=== PATIENT | female | born 1965 | race Caucasian/White ===

== ENCOUNTER 2017-08-08 09:25 | Outpatient (RCR) | payer MEDICARE, BC ==
[2017-05-16] MEDS: NS(*) 0.9% 100 ML BAG 100 ML IVPB PRN (09:00)
[2017-05-16 10:00] LABS: PLATELET COUNT, AUTOMATED 133 K/uL (150-450)
--- NOTE | 2017-05-16 10:57 | ONC Progress Note - NP.Halsey ---
Patient History Date of Service May 16, 2017 Reason For Visit/HPI Patient is seen in the clinic today for follow-up of her multiple myeloma with known bony lesions. Patient is receiving Velcade and Zometa today. Patient is currently on oral venetoclax daily. She reports that she only has enough for tomorrow's dose and then will be out. [facility] has called the clinic to say that this medication is not prior authorized and may take up to 30 days for approval through her insurance. Patient is encouraged to call [facility] who initially started her on this medication to see if they can assist and expedite the process. Overall patient is feeling relatively well and appears to be responding to treatment. She does have mild fatigue and some hair loss. Thyroid labs were drawn today for evaluation. Patient has no new bone areas that are causing pain. She is currently trying to decrease her pain medication slowly weaning off and then eventually we'll just use Tylenol as needed. She denies any fever or chills. Problem List (1) Chronic back pain (2) Chemotherapy-induced neuropathy (3) Multiple myeloma Oncology History The patient is a 51-year-old female who was diagnosed with kappa light chain multiple myeloma in December 2014. 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 She presented with anemia, hypercalcemia, numerous lytic lesions with compression of lumbar 2 and renal failure. Her animal protein at diagnosis was 0.3 gm/dL. She is status one cycle of VTD, then switched to VRD and completed a total of five cycles of induction. She received mobilization with G-CSF and collected a total of 14.9 x 10 (6) CD34/kg and her single agent melphalan autotransplant on March 16, 2013. She achieved VGPR with residual bone marrow and monoclonal protein involvement. She was started on VRD maintenance and completed six cycles and achieved a complete remission by serum and urine markers. Bone marrow biopsy January 2014 was less than 1% monoclonal plasma cells. The patient was switched to Revlimid and continued on that treatment until March 2015, when she showed signs of progression. She had light chain elevation in December 2014, and her Revlimid dose was increased to 10 mg , having been decreased due to cytopenias before. In March 2015, she had further progression of her kappa light chain of 24, K/L ratio of 26. No monoclonal protein in her serum or urine. She underwent bone marrow biopsy which showed 5% monoclonal plasma cells. With confirmation of disease progression, she was initiated on carfilzomib, pomalidomide, and dexamethasone. After two cycles of treatment, she showed small decrease in the light chain and increased again and overall remained stable with nearly seven cycles of the treatment. She was seen at my clinic in [place] for a second opinion with recommendation to continue on the current therapy until she progressed. Her sister has been confirmed as a match for allo transplant, though she does not want to pursue this any further unless it becomes more of a necessity. With her disease progression, the patient started on CPD early April 2015 and after two cycles in June 2015, her re-staging was concerning as her light chains are elevated again. Her bone marrow at that time revealed 1% monoclonal plasma cells, MRD with 1984 cells/million. After three more cycles of CPD, her serum light chain has essentially been stable. In September 2015 she had complete re-staging which shows her PET scan with progressive disease as compared to December 2014. Her bone marrow was stable with 2% monoclonal plasma cells, so interestingly, her MRD is down to 451 cells per million. Her light chains remained stable until cycle 7 and the kappa light chains increased again. The patient was offered chemotherapy with DPACE, followed by auto transplant; however, she elected to start daratumumab. The patient finished the eight weekly doses of daratumumab and four of the bi-weekly doses x 15 cycles. . Patient moved from [place], [place], Patient has been evaluated at [facility] with recommendation of treatment Velcade weekly, dexamethasone 20 mg weekly, and venetoclax orally starting treatment the beginning of February. She has had a good response with minimal toxicity. Psychosocial History Social History he patient is with one daughter. She is on disability because of multiple myeloma. She never smoked. She occasionally drank. Denies any abuse of illicit drugs. Smoking History: No Smoking Status: Never Smoker Exposure to Second Hand Smoke?: No Medications and Allergies Active Scripts Hydrocodone Bit/Acetaminophen (NORCO 5-325 TABLET) 1 Each Tablet, 1 EACH PO Q4H Y for PAIN, #60 TAB 0 Refills Prov:LATASHA REYNOSO-BC, ONC 04/18/17 Duloxetine HCl (Duloxetine HCl) 60 Mg Capsule.dr, 1 TAB PO DAILY for 30 Days, # 30 TAB 4 Refills Prov:LATASHA REYNOSOP-BC, ONC 03/09/17 Omeprazole (OMEPRAZOLE) 20 Mg Capsule.dr, 1 CAP PO QDAY, #30 CAP 9 Refills Prov:LATASHA REYNOSO BESSEMER BOTTOM MAKER-BC, ONC 03/06/17 Estradiol (ESTRADIOL 0.05 MG) 1 Each Patch.tdwk, 1 EACH TD Q7D, #12 PATCH.WK 4 Refills apply one patch to skin once weekly Prov:LATASHA REYNOSO BESSEMER BOTTOM MAKER-BC, ONC 11/09/16 Reported Medications Venetoclax (Venclexta) 100 Mg Tablet, 1200 MG PO DAILY for 14 Days 03/10/17 Venetoclax (Venclexta) 100 Mg Tablet, 800 MG PO DAILY for 7 Days 03/10/17 Venetoclax (Venclexta) 100 Mg Tablet, 400 MG PO for 7 Days 03/10/17 Zoledronic Acid (ZOMETA) 4 Mg/5 Ml Vial, 4 MG IV QMONTH, VIAL 02/01/17 Bortezomib (VELCADE) 3.5 Mg Injs, 3.5 MG SQ QWEEK 02/01/17 Levothyroxine Sodium (SYNTHROID) 100 Mcg Tablet, 150 MCG PO QDAY 07/25/16 Magnesium Hydroxide (MILK OF MAGNESIA) 400 Mg/5 Ml Oral.susp, 400 MG PO, BOTTLE 03/31/16 Lactobacillus Combination No.4 (PROBIOTIC) 1 Each Capsule, 1 EACH PO, CAPSULE 03/31/16 Multivitamin (MULTI VITAMIN DAILY) 1 Each Tablet, 1 EACH PO 03/31/16 Cholecalciferol (Vitamin D3) (VITAMIN D) 5,000 Unit Tablet, 5000 UNIT PO 03/31/16 Ondansetron (ONDANSETRON ODT) 8 Mg Tab.rapdis, 8 MG PO PRN Y for NAUSEA, TAB 03/31/16 Diclofenac Sodium 1% Gel (VOLTAREN 1% GEL) 100 Gm Gel..gram., Y for PAIN 03/31/16 Trazodone Hcl (TRAZODONE HCL) 50 Mg Tablet, 50 MG PO QHS 03/31/16 Acyclovir (ACYCLOVIR) 400 Mg Tablet, 400 MG PO BID, TAB 03/31/16 Allergies: Coded Allergies: No Known Drug Allergies (Unverified , 02/01/17) Review of System/Physical Exam Review of Systems All Systems Reviewed/Normal: Yes, Except as Noted Constitutional: Positive for Other (noted for some mild hair loss) Hematologic: Positive for Fatigue Musculoskeletal: Positive for Bone Pain (very slight bone pain) Physical Exam Vital Signs Temperature: 96.9 Pulse: 98 BP Systolic: 126 BP Diastolic: 93 Respiratory Rate: 16 O2 SAT: 95 O2 Delivery: Height (inches) 68.00 Weight lb: 179 Weight oz: Weight Kg (Remington): [id number] Pain: 1 ECOG Score: 1 General: Stable, Well Developed, Well Nourished, Not In Acute Distress HEENT: No Trauma, No Conjunctivitis, No Icterus, No Mucositis Neck: Supple Lungs: Clear to Auscultation Heart: Regular Rate, Regular Rhythm, No Gallops, No Murmurs Abdomen: Soft and Nontender, No Hepatosplenomegaly, No Masses Extremities: No Cyanosis, No Clubbing, No Edema Lymphadenopathy: No Cervical Psychiatric: Mood appears normal, Affect appears normal Skin: No Skin Rashes, No Bruising, No Purpura Diagnostic Studies Diagnostic Studies Laboratory Laboratory Tests 05/16/17 09:20 Laboratory Tests 05/16/17 09:20: White Blood Count 2.5, Red Blood Count 4.43, Hemoglobin 13.2, Hematocrit 39.1, Mean Corpuscular Volume 88.3, Mean Corpuscular Hemoglobin 29.8, Mean Corpuscular Hemoglobin Concent 33.8, Red Cell Distribution Width 14.7, Platelet Count 133, Mean Platelet Volume , Neutrophils (%) (Auto) 61.7, Lymphocytes (%) ( Auto) 19.2, Monocytes (%) (Auto) 18.2, Eosinophils (%) (Auto) 0.1, Basophils (% ) (Auto) 0.8, Nucleated RBC Relative Count (auto) 0.1, Neutrophils # (Auto) 1.6 , Lymphocytes # (Auto) 0.5, Monocytes # (Auto) 0.5, Eosinophils # (Auto) 0.0, Basophils # (Auto) 0.0, Nucleated RBC Absolute Count (auto) 0.00, Peripheral Blood Smear Yes, Sodium Level 138, Potassium Level 4.2, Chloride Level 104, Carbon Dioxide Level 24, Blood Urea Nitrogen 17, Creatinine 0.80, Glomerular Filtration Rate Calc > 60.0, Random Glucose 89, Uric Acid 4.2, Calcium Level 9.4 , Total Bilirubin 0.5, Aspartate Amino Transf (AST/SGOT) 16, Alanine Aminotransferase (ALT/SGPT) 30, Alkaline Phosphatase 48, Total Protein 6.5, Albumin 4.2, Thyroid Stimulating Hormone (TSH) 1.37, Free Thyroxine 1.14 Assessment and Plan Assessment & Plan 1. Multiple myeloma diagnosed in 2014. Patient received one cycle of VDV, switched to VRD for a total of five cycles prior to her autologous stem cell transplant done May 16, 2015. Patient achieved partial remission after her bone marrow transplant, and she received maintenance VRD therapy for six cycles with achievement of complete remission January 2016. She progressed after that and received CBD chemotherapy. After progression she was offered chemotherapy with DPACE followed by autotransplant, but the patient refused such option and decided to go for daratumumab. She received 15 cycles of daratumumab. She reevaluated at [facility] and was found to have progressive disease by PET scan July 02, 2016. Patient refused bone marrow transplant at that time despite the fact her sister is a full match. She was offered treatment with Keytruda and Revlimid under authorization to get the medication from the telecom coordinator as her insurance denied Keytruda treatment. Patient saw another oncologist at [facility] and she feels more comfortable with him. He offered her treatment with Venetoclax and Velcade weekly and dexamethasone weekly. Patient started such treatment in February 2017. She is tolerating the treatment very well. Her general condition is much better. Her PET scan from January 2017 was stable, while her kappa free light chain is responding to such treatment. It dropped from 172 to 51.9 and most recently. 14.5. She will continue to follow with her oncologist in the [facility] and alternate visits with our clinic. She will have monthly CBC, chem panel, LDH, uric acid and myeloma profile. She continues on Zometa monthly 2. Leukopenia and neutropenia. Current ANC is 1600 Will continue to monitor. 3. 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 Continue Zometa. 4. Fatigue, is getting better. 5. Hypothyroidism on supplement. TSH is 1.37 PLAN 1. Venetoclax, dexamethasone and Velcade cycle number 4 2. CBC, chem panel, uric acid to be checked weekly. 3. Patient to return in 2 months with CBC, chem panel, LDH, uric acid and myeloma profile. 4. Zometa 4 mg IV infusion every four weeks. 5. Patient is to contact us for any new concerns or complaints. I personally spent a total of 20 minutes. Of that 15 minutes was counseling/ coordination of patient's care. See my note above for details. LATASHA REYNOSO BESSEMER BOTTOM MAKER-BC, ONC May 16, 2017 10:57
[2017-05-16] MEDS: LIDOCAINE/SOD BICARB 8.4% SYR ID PRN ×2 (15:13→15:14)
[2017-05-16] MEDS: HEPARIN FLSH (PORT) 500 UN/5ML IVP PRN ×2 (15:13→15:14)
[2017-05-23 09:06] VITALS: BP 116/83
[2017-05-30 09:16] LABS: PLATELET COUNT, AUTOMATED 162 K/uL (150-450)
[2017-05-30 09:49] VITALS: BP 135/96
[2017-06-06 09:13] LABS: PLATELET COUNT, AUTOMATED 140 K/uL (150-450)
[2017-06-06 10:15] VITALS: BP 124/65
[2017-06-13 09:24] VITALS: BP 117/99
[2017-06-13] MEDS: HEPARIN FLSH (PORT) 500 UN/5ML IVP PRN (10:20)
[2017-06-13] MEDS: LIDOCAINE/SOD BICARB 8.4% SYR ID PRN (10:20)
[2017-06-13] MEDS: NS(*) 0.9% 100 ML BAG 100 ML IVPB PRN (10:20)
[2017-06-20 09:10] VITALS: BP 123/92
--- NOTE | 2017-06-20 10:55 | ONC Progress Note - NP.Halsey ---
Patient History Date of Service Jun 20, 2017 Reason For Visit/HPI Patient is seen in the clinic today for follow-up of her multiple myeloma with known bony lesions. Patient is receiving Velcade and Zometa today. Patient is currently on oral venetoclax daily. She recently had this refilled, she does report that she was 2 days late and restarting it. Overall patient is feeling well and has no new concerns. She has stable pain and has tried to decrease her pain medication but felt that her pain then increased. She continues to try to walk and exercise for strengthening. She is planning on traveling to [place] over the holidays. Problem List (1) Multiple myeloma (2) Chronic back pain (3) Chemotherapy-induced neuropathy Oncology History The patient is a 51-year-old female who was diagnosed with kappa light chain multiple myeloma in December 2014. 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 She presented with anemia, hypercalcemia, numerous lytic lesions with compression of lumbar 2 and renal failure. Her animal protein at diagnosis was 0.3 gm/dL. She is status one cycle of VTD, then switched to VRD and completed a total of five cycles of induction. She received mobilization with G-CSF and collected a total of 14.9 x 10 (6) CD34/kg and her single agent melphalan autotransplant on March 16, 2013. She achieved VGPR with residual bone marrow and monoclonal protein involvement. She was started on VRD maintenance and completed six cycles and achieved a complete remission by serum and urine markers. Bone marrow biopsy January 2014 was less than 1% monoclonal plasma cells. The patient was switched to Revlimid and continued on that treatment until March 2015, when she showed signs of progression. She had light chain elevation in December 2014, and her Revlimid dose was increased to 10 mg , having been decreased due to cytopenias before. In March 2015, she had further progression of her kappa light chain of 24, K/L ratio of 26. No monoclonal protein in her serum or urine. She underwent bone marrow biopsy which showed 5% monoclonal plasma cells. With confirmation of disease progression, she was initiated on carfilzomib, pomalidomide, and dexamethasone. After two cycles of treatment, she showed small decrease in the light chain and increased again and overall remained stable with nearly seven cycles of the treatment. She was seen at my clinic in [place] for a second opinion with recommendation to continue on the current therapy until she progressed. Her sister has been confirmed as a match for allo transplant, though she does not want to pursue this any further unless it becomes more of a necessity. With her disease progression, the patient started on CPD early April 2015 and after two cycles in June 2015, her re-staging was concerning as her light chains are elevated again. Her bone marrow at that time revealed 1% monoclonal plasma cells, MRD with 1984 cells/million. After three more cycles of CPD, her serum light chain has essentially been stable. In September 2015 she had complete re-staging which shows her PET scan with progressive disease as compared to December 2014. Her bone marrow was stable with 2% monoclonal plasma cells, so interestingly, her MRD is down to 451 cells per million. Her light chains remained stable until cycle 7 and the kappa light chains increased again. The patient was offered chemotherapy with DPACE, followed by auto transplant; however, she elected to start daratumumab. The patient finished the eight weekly doses of daratumumab and four of the bi-weekly doses x 15 cycles. . Patient moved from [place], [place], Patient has been evaluated at [facility] with recommendation of treatment Velcade weekly, dexamethasone 20 mg weekly, and venetoclax orally starting treatment the beginning of February. She has had a good response with minimal toxicity. Psychosocial History Social History She patient is with one daughter. She is on disability because of multiple myeloma. She never smoked. She occasionally drank. Denies any abuse of illicit drugs. Smoking History: No Smoking Status: Never Smoker Exposure to Second Hand Smoke?: No Medications and Allergies Active Scripts Levothyroxine Sodium (SYNTHROID) 150 Mcg Tablet, 150 MCG PO QDAY for 90 Days, # 90 TAB 3 Refills Prov:LATASHA REYNOSO RECTIFIER OPERATOR-BC, ONC 06/20/17 Omeprazole (OMEPRAZOLE) 20 Mg Tablet.dr, 20 MG PO QDAY for 90 Days, #90 TAB 3 Refills Prov:LATASHA REYNOSOP-BC, ONC 06/20/17 Dexamethasone 4 Mg Tab (DEXAMETHASONE 4 MG TAB) 4 Mg Tab, 16 MG PO weekly for 90 Days, #192 TAB 3 Refills Prov:LATASHA REYNOSO RECTIFIER OPERATOR-BC, ONC 06/20/17 Duloxetine HCl (Duloxetine HCl) 60 Mg Capsule.dr, 1 TAB PO DAILY for 90 Days, # 90 TAB 3 Refills Prov:LATASHA REYNOSO RECTIFIER OPERATOR-BC, ONC 06/20/17 Estradiol (ESTRADIOL 0.05 MG) 1 Each Patch.tdwk, 1 EACH TD Q7D for 90 Days, #30 PATCH.WK 3 Refills apply one patch to skin twice weekly Prov:LATASHA REYNOSO RECTIFIER OPERATOR-BC, ONC 06/20/17 Acyclovir (ACYCLOVIR) 400 Mg Tablet, 400 MG PO BID for 90 Days, #180 TAB 3 Refills Prov:LATASHA REYNOSO RECTIFIER OPERATOR-BC, ONC 06/20/17 Hydrocodone Bit/Acetaminophen (NORCO 5-325 TABLET) 1 Each Tablet, 1 EACH PO Q4H Y for PAIN, #60 TAB 0 Refills Prov:LATASHA REYNOSO [facility]-, ONC 06/13/17 Reported Medications Venetoclax (Venclexta) 100 Mg Tablet, 1200 MG PO DAILY for 14 Days 03/10/17 Venetoclax (Venclexta) 100 Mg Tablet, 800 MG PO DAILY for 7 Days 03/10/17 Venetoclax (Venclexta) 100 Mg Tablet, 400 MG PO for 7 Days 03/10/17 Zoledronic Acid (ZOMETA) 4 Mg/5 Ml Vial, 4 MG IV QMONTH, VIAL 02/01/17 Bortezomib (VELCADE) 3.5 Mg Injs, 3.5 MG SQ QWEEK 02/01/17 Magnesium Hydroxide (MILK OF MAGNESIA) 400 Mg/5 Ml Oral.susp, 400 MG PO, BOTTLE 03/31/16 Lactobacillus Combination No.4 (PROBIOTIC) 1 Each Capsule, 1 EACH PO, CAPSULE 03/31/16 Multivitamin (MULTI VITAMIN DAILY) 1 Each Tablet, 1 EACH PO 03/31/16 Cholecalciferol (Vitamin D3) (VITAMIN D) 5,000 Unit Tablet, 5000 UNIT PO 03/31/16 Ondansetron (ONDANSETRON ODT) 8 Mg Tab.rapdis, 8 MG PO PRN Y for NAUSEA, TAB 03/31/16 Diclofenac Sodium 1% Gel (VOLTAREN 1% GEL) 100 Gm Gel..gram., Y for PAIN 03/31/16 Trazodone Hcl (TRAZODONE HCL) 50 Mg Tablet, 50 MG PO QHS 03/31/16 Discontinued Reported Medications Levothyroxine Sodium (SYNTHROID) 100 Mcg Tablet, 150 MCG PO QDAY 07/25/16 Discontinued Scripts Omeprazole (OMEPRAZOLE) 20 Mg Capsule., 1 CAP PO QDAY, #30 CAP 9 Refills Prov:LATASHA REYNOSO RECTIFIER OPERATOR-BC, ONC 03/06/17 Allergies: Coded Allergies: No Known Drug Allergies (Unverified , 02/01/17) Review of System/Physical Exam Review of Systems All Systems Reviewed/Normal: Yes, Except as Noted Hematologic: Positive for Fatigue Physical Exam Vital Signs Temperature: 97.8 Pulse: 110 BP Systolic: 123 BP Diastolic: 92 Respiratory Rate: 16 O2 SAT: 93 O2 Delivery: Height (inches) 68.00 Weight lb: 0 Weight oz: Weight Kg ([place]): [id number] Pain: 2 ECOG Score: 0 General: Stable, Well Developed, Well Nourished, Not In Acute Distress HEENT: No Trauma, No Conjunctivitis, No Icterus, No Mucositis Neck: Supple Lungs: Clear to Auscultation Heart: Regular Rate, Regular Rhythm, No Gallops Abdomen: Soft and Nontender, No Hepatosplenomegaly, No Masses, Other Extremities: No Cyanosis, No Clubbing, No Edema Lymphadenopathy: No Cervical Psychiatric: Mood appears normal, Affect appears normal Skin: No Skin Rashes, No Bruising, No Purpura Diagnostic Studies Diagnostic Studies Laboratory Laboratory Tests 06/20/17 09:15 Laboratory Tests 05/16/17 09:20: Peripheral Blood Smear Yes, Uric Acid 4.2, Thyroid Stimulating Hormone (TSH) 1.37, Free Thyroxine 1.14, Free Triiodothyronine 2.1 05/30/17 09:05: Protein Electrophoresis (T) 7.00, Albumin % (PEP) 4.96, Hvcti-6-Skarihbyp 0.23, Yepzf-6-Acgmjpmgm 0.88, Beta Globulins 0.74, Hudt-6-Aykxjhhflucfw 1.4, Gamma Globulins (%) 0.19, Immunoglobulin G 150, Immunoglobulin A 7, Immunoglobulin M < 5, LC & Serum PEP Interpretation See note, Serum Immunofixation Lc done, Free Dunbar Light Chains, Quant 16.20, Free Lambda Light Chains, Quant 0.39, Free Dunbar/Lambda Light Chain Ratio 41.54 06/06/17 09:00: Red Blood Count 4.53, Mean Corpuscular Volume 88.4, Mean Corpuscular Hemoglobin 30.6, Mean Corpuscular Hemoglobin Concent 34.7, Red Cell Distribution Width 15.5 , Mean Platelet Volume 8.1, Monocytes (%) (Auto) 16.5, Eosinophils (%) (Auto) 0.1, Basophils (%) (Auto) 0.7, Nucleated RBC Relative Count (auto) 0.1, Monocytes # (Auto) 0.4, Eosinophils # (Auto) 0.0, Basophils # (Auto) 0.0, Nucleated RBC Absolute Count (auto) 0.00 06/20/17 09:15: White Blood Count 2.2, Hemoglobin 13.3, Hematocrit 38.3, Platelet Count 126, Neutrophils (%) (Auto) 65.5, Lymphocytes (%) (Auto) 19.5, Neutrophils # (Auto) 1.4, Lymphocytes # (Auto) 0.4, Sodium Level 138, Potassium Level 4.2, Chloride Level 106, Carbon Dioxide Level 22, Blood Urea Nitrogen 18, Creatinine 0.90, Glomerular Filtration Rate Calc > 60.0, Random Glucose 77, Calcium Level 9.0, Total Bilirubin 0.6, Aspartate Amino Transf (AST/SGOT) 17, Alanine Aminotransferase (ALT/SGPT) 25, Alkaline Phosphatase 47, Total Protein 6.7, Albumin 4.1 Assessment and Plan Assessment & Plan 1. Multiple myeloma diagnosed in 2014. Patient received one cycle of VDV, switched to VRD for a total of five cycles prior to her autologous stem cell transplant done May 16, 2015. Patient achieved partial remission after her bone marrow transplant, and she received maintenance VRD therapy for six cycles with achievement of complete remission January 2016. She progressed after that and received CBD chemotherapy. After progression she was offered chemotherapy with DPACE followed by autotransplant, but the patient refused such option and decided to go for daratumumab. She received 15 cycles of daratumumab. She reevaluated at [facility] and was found to have progressive disease by PET scan July 02, 2016. Patient refused bone marrow transplant at that time despite the fact her sister is a full match. She was offered treatment with Keytruda and Revlimid under authorization to get the medication from the silk screen printer as her insurance denied Keytruda treatment. Patient saw another oncologist at [facility] and she feels more comfortable with him. He offered her treatment with Venetoclax and Velcade weekly and dexamethasone weekly. Patient started such treatment in February 2017. She is tolerating the treatment very well. Her general condition is much better. Her PET scan from January 2017 was stable, while her kappa free light chain is responding to such treatment. It dropped from 172 to 51.9 then 14.5 and on the last labs from it was only faint. She will continue to follow with her oncologist in the [facility] and alternate visits with our clinic. She will have monthly CBC , chem panel, LDH, uric acid and myeloma profile. She continues on Zometa monthly with her last dose on 06-13-17 2. Leukopenia and neutropenia. Current ANC is 1600 Will continue to monitor. 3. 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 Continue Zometa. 4. Fatigue, is getting better. 5. Hypothyroidism on supplement. TSH is 1.37 PLAN 1. Venetoclax, dexamethasone and Velcade 2. CBC, chem panel, uric acid to be checked weekly. 3. Patient to return in 2 months with CBC, chem panel, LDH, uric acid and myeloma profile. 4. Zometa 4 mg IV infusion every four weeks. 5. Patient is to contact us for any new concerns or complaints. 6. Patient requested that many of her medications be refilled for a 90 day supply. [facility] I personally spent a total of 20 minutes. Of that 15 minutes was counseling/ coordination of patient's care. See my note above for details. LATASHA REYNOSO-BC, ONC Jun 20, 2017 10:55
[2017-06-27 09:17] VITALS: BP 114/75
[2017-06-27 09:22] LABS: PLATELET COUNT, AUTOMATED 123 K/uL (150-450)
[2017-07-04 09:05] VITALS: BP 124/93
[2017-07-18 09:44] VITALS: BP 130/90
[2017-07-18] MEDS: HEPARIN FLSH (PORT) 500 UN/5ML IVP PRN ×3 (09:47→11:41)
[2017-07-18] MEDS: LIDOCAINE/SOD BICARB 8.4% SYR ID PRN ×2 (09:47→11:48)
[2017-07-18 09:54] LABS: PLATELET COUNT, AUTOMATED 111 K/uL (150-450)
[2017-07-18 11:31] VITALS: BP 142/95
[2017-07-18] MEDS: NS(*) 0.9% 100 ML BAG 100 ML IVPB PRN (15:39)
[2017-07-31 10:38] LABS: PLATELET COUNT, AUTOMATED 138 K/uL (150-450)
[2017-08-01 09:02] VITALS: BP 123/96
[~2017-08-08] VITALS: Ht 172.7 cm; Wt 84.1 kg
[~2017-08-08 09:25] MED LIST: ACYC-50 PO; ALTEPLASE RECOMB 2 MG VIAL IVP PRN; BORTEZOMIB 3.5 MG INJS SC ONE; CHOL500045 PO; DEX4 PO; DEXTROSE 5%(*) 100 ML BAG 100 ML IVPB PRN; DICL100G39; DULO60CA7 PO; ESTR1PAT3 TD; ESTR1PAT77 TD; HYDR-393 PO; HYDR-4309 PO; LACT1CAP6 PO; LEVO100T95 PO; LEVO150T72 PO; LEVO88TA43 PO; METH4TAB67 PO; MOM PO; MULT1TAB64 PO; NS(*) 0.9% 500 ML BAG 500 ML IV PRN; OMEP-125 PO; OMEP-137 PO; ONDA8TAB98 PO; OXYC5TAB38 PO; PROM-110 PO; THYR130T11 PO; TRAZ-156 PO; VENE100T PO; WATER STERILE 10 ML VIAL IVP PRN; ZOLE4VIA IV; ZOLEDRONIC ACID 4 MG/5 ML VIAL 4 MG in NS(*) 0.9% 100 ML BAG 100 ML IVPB ONE; [UNRECOGNIZED DRUG - CODE] SQ
[2017-08-08 09:33] VITALS: BP 132/85
[2017-08-08] MEDS ORDERED: BORTEZOMIB 3.5 MG INJS SC ONE (10:15)
[2017-08-15] MEDS ORDERED: HYDR-4309 PO (11:46)
== END 2017-08-13 ==
LOC: SPU 09:25
PROVIDERS: ATTEND Internal Medicine Hematology
DX: C90.01 Multiple myeloma in remission (principal); D72.819 Decreased white blood cell count, unspecified; R53.83 Other fatigue; E03.9 Hypothyroidism, unspecified; M89.8X9 Other specified disorders of bone, unspecified site; Z79.899 Other long term (current) drug therapy
CPT/HCPCS: 36415; 82232; 83615; 83883; 84439; 84443; 84481; 84550; 85025; 85027; 86334; 96365; 96372; 96401; J1642; J3489; J7050; J9041; 82040; 82247; 82310; 82374; 82435; 82565; 82947; 84075; 84132; 84155; 84295; 84450; 84460; 84520

== ENCOUNTER 2017-08-16 01:04 | Day surgery (SDC) | payer MEDICARE, BC ==
[~2017-08-16] VITALS: Ht 172.7 cm; Wt 82.1 kg
[~2017-08-16 01:04] MED LIST changes: -ALTEPLASE RECOMB 2 MG VIAL IVP PRN; -BORTEZOMIB 3.5 MG INJS SC ONE; -DEXTROSE 5%(*) 100 ML BAG 100 ML IVPB PRN; -NS(*) 0.9% 500 ML BAG 500 ML IV PRN; -WATER STERILE 10 ML VIAL IVP PRN; -ZOLEDRONIC ACID 4 MG/5 ML VIAL 4 MG in NS(*) 0.9% 100 ML BAG 100 ML IVPB ONE
[2017-08-16] MEDS ORDERED: FAMOTIDINE 20 MG TAB PO ONE (08:45)
[2017-08-16 08:46] VITALS: BP 133/84
[2017-08-16] MEDS ORDERED: PROPOFOL EMUL(*) 10MG/ML 20 ML 40 ML ONE (08:54)
[2017-08-16] MEDS ORDERED: fentaNYL CITR 100 MCG/2 ML AMP ONE ×2 (08:56→10:38)
[2017-08-16] MEDS ORDERED: LIDOCAINE 2% IV 100 MG/5ML SYR ONE (08:57)
[2017-08-16] MEDS ORDERED: PROPOFOL EMUL(*) 10MG/ML 20 ML 20 ML ONE ×2 (08:58→10:50)
[2017-08-16] MEDS ORDERED: LIDOCAINE/SOD BICARB 8.4% SYR ID ONE (09:15)
[2017-08-16] MEDS ORDERED: cefOXitin/DEX(*) 2GM/50ML PREM 50 ML IVPB ONE (09:15)
[2017-08-16] MEDS ORDERED: NORMOSOL R SOLN(*) 1000 ML BAG 1,000 ML IV PRN (09:15)
[2017-08-16] MEDS ORDERED: cefOXitin/DEX(*) 1GM/50ML PREM 50 ML IVPB ONE (09:15)
[2017-08-16] MEDS ORDERED: MIDAZOLAM 2 MG/2 ML VIAL IVP PRN (09:15)
[2017-08-16] MEDS ORDERED: ceFAZolin(*) 1 GM VIAL 1 GM in NS(*) 0.9% 100 ML ADDVANT BAG 100 ML IVPB ONE (09:30)
--- NOTE | 2017-08-16 10:04 | Short(Outpt) Discharge Summary ---
Discharge Summary Reason for Hosp/Final Diag: (1) Status post hysteroscopy Departure Discharge to: Home, Self Care Discharge Instructions Home Meds Active Scripts Hydrocodone Bit/Acetaminophen (NORCO 5-325 TABLET) 1 Each Tablet, 1 EACH PO Q4H Y for PAIN, #60 TAB 0 Refills Prov:LATASHA REYNOSO [facility]-, ONC 08/15/17 Estradiol/Norethindrone Acet (COMBIPATCH 0.05-0.25 MG PTCH) 1 Each Patch.tdsw, 1 EACH TD twice weekly for 90 Days, ADH.PATCH Prov:LATASHA REYNOSO [facility]-, ONC 06/20/17 Levothyroxine Sodium (SYNTHROID) 150 Mcg Tablet, 150 MCG PO QDAY for 90 Days, # 90 TAB 3 Refills Prov:LATASHA REYNOSO [facility], ONC 06/20/17 Omeprazole (OMEPRAZOLE) 20 Mg Tablet.dr, 20 MG PO QDAY for 90 Days, #90 TAB 3 Refills Prov:LATASHA REYNOSO [facility] ON[facility] 06/20/17 Dexamethasone 4 Mg Tab (DEXAMETHASONE 4 MG TAB) 4 Mg Tab, 16 MG PO weekly for 90 Days, #192 TAB 3 Refills Prov:LATASHA REYNOSO [facility], ONC 06/20/17 Duloxetine HCl (Duloxetine HCl) 60 Mg Capsule.dr, 1 TAB PO DAILY for 90 Days, # 90 TAB 3 Refills Prov:LATASHA REYNOSO [facility] ONC 06/20/17 Acyclovir (ACYCLOVIR) 400 Mg Tablet, 400 MG PO BID for 90 Days, #180 TAB 3 Refills Prov:LATASHA REYNOSO [facility], ONC 06/20/17 Reported Medications Venetoclax (Venclexta) 100 Mg Tablet, 1200 MG PO DAILY for 14 Days 03/10/17 Zoledronic Acid (ZOMETA) 4 Mg/5 Ml Vial, 4 MG IV QMONTH, VIAL 02/01/17 Bortezomib (VELCADE) 3.5 Mg Injs, 3.5 MG SQ QWEEK 02/01/17 Magnesium Hydroxide (MILK OF MAGNESIA) 400 Mg/5 Ml Oral.susp, 400 MG PO, BOTTLE 03/31/16 Lactobacillus Combination No.4 (PROBIOTIC) 1 Each Capsule, 1 EACH PO, CAPSULE 03/31/16 Multivitamin (MULTI VITAMIN DAILY) 1 Each Tablet, 1 EACH PO 03/31/16 Cholecalciferol (Vitamin D3) (VITAMIN D) 5,000 Unit Tablet, 5000 UNIT PO 03/31/16 Ondansetron (ONDANSETRON ODT) 8 Mg Tab.rapdis, 8 MG PO PRN Y for NAUSEA, TAB 03/31/16 Diclofenac Sodium 1% Gel (VOLTAREN 1% GEL) 100 Gm Gel..gram., Y for PAIN 03/31/16 Trazodone Hcl (TRAZODONE HCL) 50 Mg Tablet, 50 MG PO QHS 03/31/16 Follow up Referrals: GENETICIST - In Two Weeks @ [facility] Diet: Regular Activity: As Tolerated OTF PINEDA MD Aug 16, 2017 10:04
[2017-08-16] MEDS ORDERED: KETOROLAC 30 MG/ML VIAL ONE (10:22)
[2017-08-16] MEDS ORDERED: ONDANSETRON 4 MG/2 ML VIAL ONE ×2 (10:22→11:39)
[2017-08-16] MEDS ORDERED: DEXAMETHASONE SOD 4 MG/ML VIAL ONE ×2 (10:22→11:38)
[2017-08-16] MEDS ORDERED: LR(*) 1000 ML BAG 1,000 ML IV ONE (11:06)
--- NOTE | 2017-08-16 11:06 | Post Operative Note ---
Operative Note - ACCOUNTS EXECUTIVE Operative Day Date: Aug 16, 2017 Time: 11:04 Physicians Surgeon: Ervin Anesthesia: Alvin GARNER Diagnosis Pre-Op Diagnosis: Endometrial mass Post-Op Diagnosis: Submucosal fibroid Procedure Procedure(s): Dx hscope, hysteroscopic myomectomy Specimen Removed:(Maybe N/A): Fibroid Fluids Fluids: IVF; 500cc Estimated Blood Loss: 10cc OTF PINEDA MD Aug 16, 2017 11:06
[2017-08-16] MEDS ORDERED: METOCLOPRAMIDE 10 MG/2 ML SDV IVP PRN (11:10)
[2017-08-16] MEDS ORDERED: APAP/HYDROCODONE 325/5 TAB PO PRN (11:10)
[2017-08-16 11:51] VITALS: BP 118/83
[2017-08-16 12:07] VITALS: BP 118/75
[2017-08-16 12:11] VITALS: BP 122/90
[2017-08-16 12:13] VITALS: BP 117/80
--- NOTE | 2017-08-16 17:26 | OPERATIVE REPORT 1 ---
EVENT DATE: August 16, 2017 SURGEON: Radha Mueller MD ANESTHESIOLOGIST: Lalito Esquivel MD ANESTHESIA: General endotracheal. PREOPERATIVE DIAGNOSIS Endometrial mass. POSTOPERATIVE DIAGNOSIS Submucosal fibroid. PROCEDURES PERFORMED 1. Diagnostic hysteroscopy. 2. Hysteroscopic myomectomy. SPECIMEN REMOVED Fibroid. FLUIDS 500 mL ESTIMATED BLOOD LOSS 10 mL INDICATIONS FOR PROCEDURE This patient is a 51-year-old 1, para 1, who presented with irregular bleeding after removal of the Mirena. An ultrasound did reveal an approximately 3.6 x 2.6 x 2.8 cm mass in the endometrial lining. Her endometrial biopsy was benign. She, therefore, was scheduled for hysteroscopic removal of this lesion. DESCRIPTION OF PROCEDURE The patient was properly identified and taken to the operating room. She was administered Ancef preoperatively and placed in the dorsal lithotomy position. SCDs were on and running. Her bladder was drained of approximately 100 mL of clear yellow urine. A bimanual exam was performed revealing an anteverted uterus of approximately 8 cm. The anterior lip of the cervix was grasped with an Allis clamp, and the cervix was serially dilated with Hegar dilators to 7 mm. The hysteroscope was then assembled and primed. The hysteroscope was then introduced under direct visualization. The cervical canal was within normal limits. The endometrial cavity revealed two lesions. The most distal appeared to be approximately a 2 cm endometrial polyp. The most distal was attached to the fundal aspect of the uterus and was approximately 4 cm. Using a MyoSure device, the first polypoid-appearing lesion was removed without difficulty. The myoma was then slowly morcellated with the MyoSure device. This one MyoSure device began to dull on the blade, and therefore, a second MyoSure device was utilized to complete the remainder of the myomectomy. There was still a small portion at the fundus that was attached; however, it was relatively flush with the fundus, and I was unable to remove that aspect of the myoma. All of the tissue was sent to Pathology. The MyoSure and the hysteroscope were removed. The Allis clamp was removed, and there was no significant bleeding. The speculum was then removed. The patient tolerated this procedure well and recovered in the PACU. GRETCHEN
== END 2017-08-16 11:51 | disposition home or self-care (01) ==
LOC: OR 01:04
PROVIDERS: ATTEND Obstetrics & Gynecology
DX: D25.0 Submucous leiomyoma of uterus (principal)
CPT/HCPCS: 36415; 58561; 84703; 88307; A9270; J0690; J1100; J1885; J2001; J2405; J2704; J3010; J7050

== ENCOUNTER 2017-11-07 08:57 | Outpatient (RCR) | payer BC, MEDICARE ==
[2017-08-14 10:44] VITALS: BP 118/81
[2017-08-14 10:46] LABS: PLATELET COUNT, AUTOMATED 112 K/uL (150-450)
[2017-08-15 09:15] VITALS: BP 121/83
[2017-08-15] MEDS: LIDOCAINE/SOD BICARB 8.4% SYR ID PRN ×2 (09:38→11:06)
[2017-08-15] MEDS: HEPARIN FLSH (PORT) 500 UN/5ML IVP PRN ×2 (11:05→11:06)
[2017-08-15] MEDS: NS(*) 0.9% 100 ML BAG 100 ML IVPB PRN (11:06)
--- NOTE | 2017-08-15 11:31 | ONC Progress Note - NP.Halsey ---
Patient History Date of Service Aug 15, 2017 Reason For Visit/HPI Patient is seen in the clinic today for follow-up of her multiple myeloma with known bony lesions. Patient continues to receive weekly Velcade and Zometa every 4 weeks. She continues on oral venetoclax 1200mg daily. Overall patient continues to feel very well and denies any new areas of bone pain. She has occasional episodes of loose stools which alternates with occasional days of constipation. She has mild fatigue. She reports that she is having thinning of the hair and recently followed with seo consultant. Labs were drawn and results were pending. She reports that she currently is on dexamethasone 12 mg weekly with a schedule to decrease it to 8 mg in 1 month. She recently followed up with Dr. Johnathan Morgan and shares that within a month or 2 she may decrease the Velcade to every other week. Patient's absolute neutrophil count is 1000 today with a platelets level of 112, 000. Patient will be treated today. We did have the discussion that if her absolute neutrophil count continues to decrease that we may have to hold her treatment for 1 week for recovery of cells. She is encouraged to visit with Dr. Johnathan Morgan regarding plan of care and which drug, or both drugs to be held if necessary. We do not have any documentation or update of plan of care from this provider. In addition patient shares that we have not sent lab results to her provider and I will assure that this is done today. Problem List (1) Chemotherapy-induced neuropathy (2) Multiple myeloma Oncology History The patient is a 51-year-old female who was diagnosed with kappa light chain multiple myeloma in December 2014. 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 She presented with anemia, hypercalcemia, numerous lytic lesions with compression of lumbar 2 and renal failure. Her animal protein at diagnosis was 0.3 gm/dL. She is status one cycle of VTD, then switched to VRD and completed a total of five cycles of induction. She received mobilization with G-CSF and collected a total of 14.9 x 10 (6) CD34/kg and her single agent melphalan autotransplant on March 16, 2013. She achieved VGPR with residual bone marrow and monoclonal protein involvement. She was started on VRD maintenance and completed six cycles and achieved a complete remission by serum and urine markers. Bone marrow biopsy January 2014 was less than 1% monoclonal plasma cells. The patient was switched to Revlimid and continued on that treatment until March 2015, when she showed signs of progression. She had light chain elevation in December 2014, and her Revlimid dose was increased to 10 mg , having been decreased due to cytopenias before. In March 2015, she had further progression of her kappa light chain of 24, K/L ratio of 26. No monoclonal protein in her serum or urine. She underwent bone marrow biopsy which showed 5% monoclonal plasma cells. With confirmation of disease progression, she was initiated on carfilzomib, pomalidomide, and dexamethasone. After two cycles of treatment, she showed small decrease in the light chain and increased again and overall remained stable with nearly seven cycles of the treatment. She was seen at my clinic in [place] for a second opinion with recommendation to continue on the current therapy until she progressed. Her sister has been confirmed as a match for allo transplant, though she does not want to pursue this any further unless it becomes more of a necessity. With her disease progression, the patient started on CPD early April 2015 and after two cycles in June 2015, her re-staging was concerning as her light chains are elevated again. Her bone marrow at that time revealed 1% monoclonal plasma cells, MRD with 1984 cells/million. After three more cycles of CPD, her serum light chain has essentially been stable. In September 2015 she had complete re-staging which shows her PET scan with progressive disease as compared to December 2014. Her bone marrow was stable with 2% monoclonal plasma cells, so interestingly, her MRD is down to 451 cells per million. Her light chains remained stable until cycle 7 and the kappa light chains increased again. The patient was offered chemotherapy with DPACE, followed by auto transplant; however, she elected to start daratumumab. The patient finished the eight weekly doses of daratumumab and four of the bi-weekly doses x 15 cycles. . Patient moved from [place] to [place], [place], Patient has been evaluated at [facility] with recommendation of treatment Velcade weekly, dexamethasone 20 mg weekly, and venetoclax 1200 mg daily starting treatment the beginning of February 2017. She has had a good response with minimal toxicity. Dexamethasone has been decreased to 12 mg weekly with the plan to decrease to 8 mg within a month. Psychosocial History Social History She patient is with one daughter. She is on disability because of multiple myeloma. She never smoked. She occasionally drank. Denies any abuse of illicit drugs. Smoking History: No Smoking Status: Never Smoker Exposure to Second Hand Smoke?: No Medications and Allergies Active Scripts Estradiol/Norethindrone Acet (COMBIPATCH 0.05-0.25 MG PTCH) 1 Each Patch.tdsw, 1 EACH TD twice weekly for 90 Days, ADH.PATCH Prov:EDGARDOLATASHA Ramno [facility], ONC 06/20/17 Levothyroxine Sodium (SYNTHROID) 150 Mcg Tablet, 150 MCG PO QDAY for 90 Days, # 90 TAB 3 Refills Prov:EDGARDOLATASHA Ramon [facility], ONC 06/20/17 Omeprazole (OMEPRAZOLE) 20 Mg Tablet.dr, 20 MG PO QDAY for 90 Days, #90 TAB 3 Refills Prov:LATASHA REYNOSO [facility], ONC 06/20/17 Dexamethasone 4 Mg Tab (DEXAMETHASONE 4 MG TAB) 4 Mg Tab, 16 MG PO weekly for 90 Days, #192 TAB 3 Refills Prov:LATASHA REYNOSO [facility], ONC 06/20/17 Duloxetine HCl (Duloxetine HCl) 60 Mg Capsule.dr, 1 TAB PO DAILY for 90 Days, # 90 TAB 3 Refills Prov:EDGARDOLATASHA Ramon [facility], ONC 06/20/17 Acyclovir (ACYCLOVIR) 400 Mg Tablet, 400 MG PO BID for 90 Days, #180 TAB 3 Refills Prov:EDGARDOLATASHA J [facility], ONC 06/20/17 Hydrocodone Bit/Acetaminophen (NORCO 5-325 TABLET) 1 Each Tablet, 1 EACH PO Q4H Y for PAIN, #60 TAB 0 Refills Prov:ALEN REYNOSOMARTINEZ Navarro [facility], ONC 06/13/17 Reported Medications Venetoclax (Venclexta) 100 Mg Tablet, 1200 MG PO DAILY for 14 Days 03/10/17 Zoledronic Acid (ZOMETA) 4 Mg/5 Ml Vial, 4 MG IV QMONTH, VIAL 02/01/17 Bortezomib (VELCADE) 3.5 Mg Injs, 3.5 MG SQ QWEEK 02/01/17 Magnesium Hydroxide (MILK OF MAGNESIA) 400 Mg/5 Ml Oral.susp, 400 MG PO, BOTTLE 03/31/16 Lactobacillus Combination No.4 (PROBIOTIC) 1 Each Capsule, 1 EACH PO, CAPSULE 03/31/16 Multivitamin (MULTI VITAMIN DAILY) 1 Each Tablet, 1 EACH PO 03/31/16 Cholecalciferol (Vitamin D3) (VITAMIN D) 5,000 Unit Tablet, 5000 UNIT PO 03/31/16 Ondansetron (ONDANSETRON ODT) 8 Mg Tab.rapdis, 8 MG PO PRN Y for NAUSEA, TAB 03/31/16 Diclofenac Sodium 1% Gel (VOLTAREN 1% GEL) 100 Gm Gel..gram., Y for PAIN 03/31/16 Trazodone Hcl (TRAZODONE HCL) 50 Mg Tablet, 50 MG PO QHS 03/31/16 Allergies: Coded Allergies: No Known Drug Allergies (Unverified , 02/01/17) Review of System/Physical Exam Review of Systems All Systems Reviewed/Normal: Yes, Except as Noted Hematologic: Positive for Fatigue Musculoskeletal: Positive for Bone Pain (Meints relatively stable) Physical Exam Vital Signs Temperature: 97.2 Pulse: 110 BP Systolic: 121 BP Diastolic: 83 Respiratory Rate: 16 O2 SAT: 95 O2 Delivery: Height (inches) 68.00 Weight lb: 185 Weight oz: Weight Kg ([place]): [id number] Pain: 2 ECOG Score: 1 General: Stable, Well Developed, Well Nourished, Not In Acute Distress HEENT: No Trauma, No Conjunctivitis, No Icterus, No Mucositis, No Oral Thrush Neck: Supple Lungs: Clear to Auscultation Heart: Regular Rate, Regular Rhythm, No Gallops Abdomen: Soft and Nontender, No Hepatosplenomegaly, No Masses, Other (bowel sounds are active) Extremities: No Cyanosis, No Clubbing, No Edema Lymphadenopathy: No Cervical Psychiatric: Mood appears normal, Affect appears normal Skin: No Skin Rashes, No Bruising, No Purpura Diagnostic Studies Diagnostic Studies Laboratory Item Value Date Time Immunoglobulin G 101 mg/dL L 07/18/17 0940 Immunoglobulin A <7 mg/dL L 07/18/17 0940 Immunoglobulin M <5 mg/dL L 07/18/17 0940 Free Arab Light Chains, Quant 13.80 mg/dL H 07/18/17 0940 IE & SPEP normal pattern; no monoclonal proteins seen 07-18-17 Free Lambda Light Chains, Quant <0.16 mg/dL L 07/18/17 0940 Laboratory Tests 08/14/17 10:38 Laboratory Tests 08/14/17 10:38: White Blood Count 1.9, Red Blood Count 4.05, Hemoglobin 12.8, Hematocrit 36.5, Mean Corpuscular Volume 90.1, Mean Corpuscular Hemoglobin 31.5, Mean Corpuscular Hemoglobin Concent 35.0, Red Cell Distribution Width 15.1, Platelet Count 112, Mean Platelet Volume 8.2, Neutrophils (%) (Auto) 52.9, Lymphocytes (% ) (Auto) 20.3, Monocytes (%) (Auto) 25.9, Eosinophils (%) (Auto) 0.1, Basophils (%) (Auto) 0.8, Nucleated RBC Relative Count (auto) 0.2, Neutrophils # (Auto) 1.0, Lymphocytes # (Auto) 0.4, Monocytes # (Auto) 0.5, Eosinophils # (Auto) 0.0 , Basophils # (Auto) 0.0, Nucleated RBC Absolute Count (auto) 0.00, Peripheral Blood Smear Yes, Sodium Level 138, Potassium Level 4.3, Chloride Level 103, Carbon Dioxide Level 23, Blood Urea Nitrogen 18, Creatinine 1.10, Glomerular Filtration Rate Calc 52.4, Random Glucose 86, Calcium Level 9.7, Total Bilirubin 0.6, Aspartate Amino Transf (AST/SGOT) 18, Alanine Aminotransferase ( ALT/SGPT) 24, Alkaline Phosphatase 42, Total Protein 6.6, Albumin 4.1 Assessment and Plan Assessment & Plan 1. Multiple myeloma diagnosed in 2014. Patient received one cycle of VDV, switched to VRD for a total of five cycles prior to her autologous stem cell transplant done May 16, 2015. Patient achieved partial remission after her bone marrow transplant, and she received maintenance VRD therapy for six cycles with achievement of complete remission January 2016. She progressed after that and received CBD chemotherapy. After progression she was offered chemotherapy with DPACE followed by autotransplant, but the patient refused such option and decided to go for daratumumab. She received 15 cycles of daratumumab. She reevaluated at [facility] and was found to have progressive disease by PET scan July 02, 2016. Patient refused bone marrow transplant at that time despite the fact her sister is a full match. She was offered treatment with Keytruda and Revlimid under authorization to get the medication from the plant inspector as her insurance denied Keytruda treatment. Patient saw another oncologist at [facility] and she feels more comfortable with him. He offered her treatment with Venetoclax and Velcade weekly and dexamethasone weekly. Patient started such treatment in February 2017. She is tolerating the treatment very well. Her general condition is much better. Her PET scan from January 2017 was stable, while her kappa free light chain is responding to such treatment. It dropped from 172 to 51.9 then 14.5 and on 07-18-17 was 13.80. She will continue to follow with her oncologist in the [facility], now seeing Dr. Johnathan Morgan and alternate visits with our clinic. She will have monthly CBC, chem panel, LDH, uric acid and myeloma profile. She continues on Zometa monthly with her last dose today. 2. Leukopenia and neutropenia. Current ANC is 1000 Will continue to monitor. Discussion of holding treatment was reviewed with patient today. She is encouraged to visit with Dr. Johnathan Morgan regarding plan of care. 3. 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 Continue Zometa. 4. Fatigue, is getting better. 5. Hypothyroidism on supplement. TSH is pending. Patient recently followed with seo consultant to discuss plan of care. PLAN 1. Venetoclax, dexamethasone and Velcade 2. CBC, chem panel, uric acid to be checked weekly. 3. Patient to return monthly with CBC, chem panel, LDH, uric acid and myeloma profile. 4. Zometa 4 mg IV infusion every four weeks. 5. Patient is to contact us for any new concerns or complaints. I personally spent a total of 20 minutes. Of that 15 minutes was counseling/ coordination of patient's care. See my note above for details. LATASHA REYNOSO-BC, ONC Aug 15, 2017 11:31
[2017-08-22] MEDS: LIDOCAINE/SOD BICARB 8.4% SYR ID PRN (09:31)
[2017-08-22] MEDS: HEPARIN FLSH (PORT) 500 UN/5ML IVP PRN (09:31)
[2017-08-22] MEDS: ACETAMINOPHEN 325 MG TAB PO PRN (09:31)
[2017-08-22] MEDS: diphenhydrAMINE 25 MG CAP PO PRN (09:31)
[2017-08-22] MEDS: HYDROCORTISONE 100 MG/2 ML IVP PRN (09:32)
[2017-08-29 09:04] VITALS: BP 112/78
[2017-09-05 08:49] VITALS: BP 115/95
[2017-09-05 09:09] LABS: PLATELET COUNT, AUTOMATED 91 K/uL (150-450)
[2017-09-11 09:52] VITALS: BP 115/83
[2017-09-11 10:11] LABS: PLATELET COUNT, AUTOMATED 108 K/uL (150-450)
[2017-09-12 08:57] VITALS: BP 136/94
[2017-09-12] MEDS: LIDOCAINE/SOD BICARB 8.4% SYR ID PRN (09:06)
[2017-09-12] MEDS: HEPARIN FLSH (PORT) 500 UN/5ML IVP PRN (09:07)
[2017-09-12] MEDS: NS(*) 0.9% 100 ML BAG 100 ML IVPB PRN (09:16)
--- NOTE | 2017-09-12 10:21 | ONC Progress Note - NP.Halsey ---
Patient History Date of Service Sep 12, 2017 Reason For Visit/HPI Patient is seen in the clinic today for follow-up of her multiple myeloma with known bony lesions. Patient continues to receive weekly Velcade and Zometa every 4 weeks. She continues on oral venetoclax 1200mg daily. Velcade was held 2 weeks due to thrombocytopenia and neutropenia. Patient continued on oral medication. Platelets have recovered to 108,000. Absolute neutrophil count is 1400. Short reports that she recently had surgery with [employer] and continues to have some scant bleeding to heavy bleeding off and on. She will continue to follow with them as recommended. Overall she feels very well and has no concerns. She is planning on a trip next month to [place] and [place], she will be traveling with her sisters. She would like antibiotics to take with her if indicated. Her provider at [facility] has suggested Cipro. I would agree with this plan of care. We did discuss indication for use with acute cough and upper respiratory infection or traveler's diarrhea or bladder infection. Patient verbalized understanding. She is currently on dexamethasone weekly. She is scheduled to follow with Dr. Johnathan Morgan next month regarding her treatment and plan of care. Patient did receive 1 dose of IVIG due to low IgG levels. These were reviewed today and are in the 700 range, previously in the 100 range. Oncology History The patient is a 51-year-old female who was diagnosed with kappa light chain multiple myeloma in December 2014. 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 She presented with anemia, hypercalcemia, numerous lytic lesions with compression of lumbar 2 and renal failure. Her animal protein at diagnosis was 0.3 gm/dL. She is status one cycle of VTD, then switched to VRD and completed a total of five cycles of induction. She received mobilization with G-CSF and collected a total of 14.9 x 10 (6) CD34/kg and her single agent melphalan autotransplant on March 16, 2013. She achieved VGPR with residual bone marrow and monoclonal protein involvement. She was started on VRD maintenance and completed six cycles and achieved a complete remission by serum and urine markers. Bone marrow biopsy January 2014 was less than 1% monoclonal plasma cells. The patient was switched to Revlimid and continued on that treatment until March 2015, when she showed signs of progression. She had light chain elevation in December 2014, and her Revlimid dose was increased to 10 mg , having been decreased due to cytopenias before. In March 2015, she had further progression of her kappa light chain of 24, K/L ratio of 26. No monoclonal protein in her serum or urine. She underwent bone marrow biopsy which showed 5% monoclonal plasma cells. With confirmation of disease progression, she was initiated on carfilzomib, pomalidomide, and dexamethasone. After two cycles of treatment, she showed small decrease in the light chain and increased again and overall remained stable with nearly seven cycles of the treatment. [facility] [place] for a second opinion with recommendation to continue on the current therapy until she progressed. Her sister has been confirmed as a match for allo transplant, though she does not want to pursue this any further unless it becomes more of a necessity. With her disease progression, the patient started on CPD early April 2015 and after two cycles in June 2015, her re-staging was concerning as her light chains are elevated again. Her bone marrow at that time revealed 1% monoclonal plasma cells, MRD with 1984 cells/million. After three more cycles of CPD, her serum light chain has essentially been stable. In September 2015 she had complete re-staging which shows her PET scan with progressive disease as compared to December 2014. Her bone marrow was stable with 2% monoclonal plasma cells, so interestingly, her MRD is down to 451 cells per million. Her light chains remained stable until cycle 7 and the kappa light chains increased again. The patient was offered chemotherapy with DPACE, followed by auto transplant; however, she elected to start daratumumab. The patient finished the eight weekly doses of daratumumab and four of the bi-weekly doses x 15 cycles. . Patient moved from [place] to [place], [place], Patient has been evaluated at [facility] with recommendation of treatment Velcade weekly, dexamethasone 20 mg weekly, and venetoclax 1200 mg daily starting treatment the beginning of February 2017. She has had a good response with minimal toxicity. Dexamethasone has been decreased to 12 mg weekly with the plan to decrease to 8 mg within a month. Psychosocial History Social History She patient is with one daughter. She is on disability because of multiple myeloma. She never smoked. She occasionally drank. Denies any abuse of illicit drugs. Smoking History: No Smoking Status: Never Smoker Exposure to Second Hand Smoke?: No Medications and Allergies Active Scripts Ciprofloxacin Hcl (CIPRO) 500 Mg Tablet, 500 MG PO BID for 10 Days, #20 TAB Prov:LATASHA REYNOSO [facility] [place], ONC 09/12/17 Hydrocodone Bit/Acetaminophen (NORCO 5-325 TABLET) 1 Each Tablet, 1 EACH PO Q4H Y for PAIN, #60 TAB 0 Refills Prov:LATASHA REYNOSO [facility] [place], ONC 08/15/17 Estradiol/Norethindrone Acet (COMBIPATCH 0.05-0.25 MG PTCH) 1 Each Patch.tdsw, 1 EACH TD twice weekly for 90 Days, ADH.PATCH Prov:LATASHA REYNOSO [facility] [place], ONC 06/20/17 Levothyroxine Sodium (SYNTHROID) 150 Mcg Tablet, 150 MCG PO QDAY for 90 Days, # 90 TAB 3 Refills Prov:LATASHA REYNOSO [facility] [place], ONC 06/20/17 Omeprazole (OMEPRAZOLE) 20 Mg Tablet.dr, 20 MG PO QDAY for 90 Days, #90 TAB 3 Refills Prov:LATASHA REYNOSO [facility] [place], ONC 06/20/17 Dexamethasone 4 Mg Tab (DEXAMETHASONE 4 MG TAB) 4 Mg Tab, 16 MG PO weekly for 90 Days, #192 TAB 3 Refills Prov:LATASHA REYNOSO [facility] [place], ONC 06/20/17 Duloxetine HCl (Duloxetine HCl) 60 Mg Capsule.dr, 1 TAB PO DAILY for 90 Days, # 90 TAB 3 Refills Prov:LATASHA REYNOSO [facility] [place], ONC 06/20/17 Acyclovir (ACYCLOVIR) 400 Mg Tablet, 400 MG PO BID for 90 Days, #180 TAB 3 Refills Prov:LATASHA REYNOSO [facility] [place], ONC 06/20/17 Reported Medications Venetoclax (Venclexta) 100 Mg Tablet, 1200 MG PO DAILY for 14 Days 03/10/17 Zoledronic Acid (ZOMETA) 4 Mg/5 Ml Vial, 4 MG IV QMONTH, VIAL 02/01/17 Bortezomib (VELCADE) 3.5 Mg Injs, 3.5 MG SQ QWEEK 02/01/17 Magnesium Hydroxide (MILK OF MAGNESIA) 400 Mg/5 Ml Oral.susp, 400 MG PO, BOTTLE 03/31/16 Lactobacillus Combination No.4 (PROBIOTIC) 1 Each Capsule, 1 EACH PO, CAPSULE 03/31/16 Multivitamin (MULTI VITAMIN DAILY) 1 Each Tablet, 1 EACH PO 03/31/16 Cholecalciferol (Vitamin D3) (VITAMIN D) 5,000 Unit Tablet, 5000 UNIT PO 03/31/16 Ondansetron (ONDANSETRON ODT) 8 Mg Tab.rapdis, 8 MG PO PRN Y for NAUSEA, TAB 03/31/16 Diclofenac Sodium 1% Gel (VOLTAREN 1% GEL) 100 Gm Gel..gram., Y for PAIN 03/31/16 Trazodone Hcl (TRAZODONE HCL) 50 Mg Tablet, 50 MG PO QHS 03/31/16 Allergies: Coded Allergies: No Known Drug Allergies (Unverified , 02/01/17) Review of System/Physical Exam Review of Systems All Systems Reviewed/Normal: Yes, Except as Noted Hematologic: Positive for Fatigue (mild she is active hiking and swimming) Physical Exam Vital Signs Temperature: 97.5 Pulse: 96 BP Systolic: 136 BP Diastolic: 94 Respiratory Rate: 16 O2 SAT: 96 O2 Delivery: Height (inches) 68.00 Weight lb: 181 Weight oz: Weight Kg ([place]): [id number] Pain: 2 ECOG Score: 0 General: Stable, Well Developed, Well Nourished, Not In Acute Distress Neck: Supple Lungs: Clear to Auscultation Heart: Regular Rate, Regular Rhythm, No Gallops Abdomen: Soft and Nontender, No Hepatosplenomegaly, No Masses, Other (bowel sounds are active) Extremities: No Cyanosis, No Clubbing, No Edema Lymphadenopathy: No Cervical Psychiatric: Mood appears normal, Affect appears normal Skin: No Skin Rashes, No Bruising, No Purpura Diagnostic Studies Diagnostic Studies Laboratory Laboratory Tests 09/11/17 09:45 Laboratory Tests 08/29/17 09:11: Uric Acid 4.5, Lactate Dehydrogenase 452, Protein Electrophoresis (T) 7.80, Albumin % (PEP) 4.88, Ozkpk-4-Cfxjvcrep 0.30, Iljyp-6-Dgyqypmta 0.99, Beta Globulins 0.83, Phgv-8-Upihnzgcfawvp 2.4, Gamma Globulins (%) 0.79, Immunoglobulin G 744, Immunoglobulin A <7, Immunoglobulin M <5, LC & Serum PEP Interpretation See note, Serum Immunofixation Lc done, Free [place] Light Chains , Quant 18.00, Free [place] Light Chains, Quant <0.16, Free [place]/Lambda Light Chain Ratio See note 09/11/17 09:45: White Blood Count 2.2, Red Blood Count 3.97, Hemoglobin 12.3, Hematocrit 35.7, Mean Corpuscular Volume 89.8, Mean Corpuscular Hemoglobin 30.9, Mean Corpuscular Hemoglobin Concent 34.4, Red Cell Distribution Width 15.2, Platelet Count 108, Mean Platelet Volume 9.0, Neutrophils (%) (Auto) 62.8, Lymphocytes (% ) (Auto) 19.5, Monocytes (%) (Auto) 17.1, Eosinophils (%) (Auto) 0.0, Basophils (%) (Auto) 0.6, Nucleated RBC Relative Count (auto) 0.1, Neutrophils # (Auto) 1.4, Lymphocytes # (Auto) 0.4, Monocytes # (Auto) 0.4, Eosinophils # (Auto) 0.0 , Basophils # (Auto) 0.0, Nucleated RBC Absolute Count (auto) 0.00, Peripheral Blood Smear No, Sodium Level 139, Potassium Level 4.1, Chloride Level 106, Carbon Dioxide Level 21, Blood Urea Nitrogen 15, Creatinine 0.90, Glomerular Filtration Rate Calc > 60.0, Random Glucose 96, Calcium Level 8.9, Total Bilirubin 0.4, Aspartate Amino Transf (AST/SGOT) 26, Alanine Aminotransferase ( ALT/SGPT) 33, Alkaline Phosphatase 48, Total Protein 7.0, Albumin 4.0 Assessment and Plan Assessment & Plan 1. Multiple myeloma diagnosed in 2014. Patient received one cycle of VDV, switched to VRD for a total of five cycles prior to her autologous stem cell transplant done May 16, 2015. Patient achieved partial remission after her bone marrow transplant, and she received maintenance VRD therapy for six cycles with achievement of complete remission January 2016. She progressed after that and received CBD chemotherapy. After progression she was offered chemotherapy with DPACE followed by autotransplant, but the patient refused such option and decided to go for daratumumab. She received 15 cycles of daratumumab. She reevaluated at [facility] and was found to have progressive disease by PET scan July 02, 2016. Patient refused bone marrow transplant at that time despite the fact her sister is a full match. She was offered treatment with Keytruda and Revlimid under authorization to get the medication from the overseamer as her insurance denied Keytruda treatment. Patient saw another oncologist at [facility] and she feels more comfortable with him. He offered her treatment with Venetoclax and Velcade weekly and dexamethasone weekly. Patient started such treatment in February 2017. She is tolerating the treatment very well. Her general condition is much better. Her PET scan from January 2017 was stable, while her kappa free light chain is responding to such treatment. It dropped from 172 to 51.9 then 14.5 and on 07-18-17 was 13.80. In August, the K:L ration was unable to be calculated an SPEP was normal. She will continue to follow with her oncologist in the [facility], now seeing Dr. Johnathan Morgan and alternate visits with our clinic. She will have monthly CBC, chem panel, LDH, uric acid and myeloma profile. She continues on Zometa monthly with her last dose today. In addition patient received one dose of IVIG for an IgG level in the 100 range, this is improved to the 700 range. Patient will be given a prescription for Cipro 500 mg twice a day 10 days to take with her on her trip out of the country. Discussion of use was reviewed to include upper respiratory infection, bladder infection or acute diarrhea with possible GI infection. Patient verbalized understanding and reports that her sister who is going with her is a nurse. 2. Leukopenia and neutropenia. Current ANC is 1400 Will continue to monitor. Treatment was held for the last 2 weeks. 3. 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 Continue Zometa monthly. 4. Fatigue, is getting better. 5. Hypothyroidism on supplement. TSH is pending. Patient recently followed with injury prevention coordinator to discuss plan of care. PLAN 1. Venetoclax, dexamethasone and Velcade 2. CBC, chem panel, uric acid to be checked weekly. 3. Patient to return monthly with CBC, chem panel, LDH, uric acid and myeloma profile. 4. Zometa 4 mg IV infusion every four weeks. 5. Patient is to contact us for any new concerns or complaints. I personally spent a total of 20 minutes. Of that 15 minutes was counseling/ coordination of patient's care. See my note above for details. LATASHA REYNOSO DIRECTOR OF DIRECT MARKETING[employer], ONC Sep 12, 2017 10:21
[2017-09-19] MEDS: diphenhydrAMINE 25 MG CAP PO PRN (09:49)
[2017-09-19] MEDS: ACETAMINOPHEN 325 MG TAB PO PRN (09:49)
[2017-09-19] MEDS: HYDROCORTISONE 100 MG/2 ML IVP PRN (09:50)
[2017-09-19] MEDS: HEPARIN FLSH (PORT) 500 UN/5ML IVP PRN (13:41)
[2017-09-19] MEDS: NS(*) 0.9% 100 ML BAG 100 ML IVPB PRN (13:42)
[2017-09-25 10:48] VITALS: BP 125/89
[2017-10-02 09:31] VITALS: BP 132/84
[2017-10-02 09:45] LABS: PLATELET COUNT, AUTOMATED 73 K/uL (150-450)
[2017-10-03 09:20] VITALS: BP 118/96
[2017-10-24 14:03] VITALS: BP 120/89
[2017-10-24] MEDS: LIDOCAINE/SOD BICARB 8.4% SYR ID PRN (14:09)
[2017-10-24] MEDS: NS(*) 0.9% 100 ML BAG 100 ML IVPB PRN (14:10)
[2017-10-24] MEDS: HEPARIN FLSH (PORT) 500 UN/5ML IVP PRN (14:10)
[2017-10-31 09:24] LABS: PLATELET COUNT, AUTOMATED 99 K/uL (150-450)
[2017-11-03 09:04] VITALS: BP 137/91
--- NOTE | 2017-11-04 18:13 | ONCOLOGY FOLLOW UP NOTE ---
EVENT DATE: November 03, 2017 DIAGNOSES 1. Multiple myeloma. 2. 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 3. Hypothyroidism. CHIEF COMPLAINT Patient is here today for follow up of her multiple myeloma. ONCOLOGY HISTORY The patient is a 51-year-old female who was diagnosed with kappa light chain multiple myeloma in December 2014. 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 She presented with anemia, hypercalcemia, numerous lytic lesions with compression of lumbar 2 and renal failure. Her animal protein at diagnosis was 0.3 gm/dL. She is status one cycle of VTD, then switched to VRD and completed a total of five cycles of induction. She received mobilization with G-CSF and collected a total of 14.9 x 10 (6) CD34/kg and her single agent melphalan autotransplant on March 16, 2013. She achieved VGPR with residual bone marrow and monoclonal protein involvement. She was started on VRD maintenance and completed six cycles and achieved a complete remission by serum and urine markers. Bone marrow biopsy January 2014 was less than 1% monoclonal plasma cells. The patient was switched to Revlimid and continued on that treatment until March 2015, when she showed signs of progression. She had light chain elevation in December 2014, and her Revlimid dose was increased to 10 mg , having been decreased due to cytopenias before. In March 2015, she had further progression of her kappa light chain of 24, K/L ratio of 26. No monoclonal protein in her serum or urine. She underwent bone marrow biopsy which showed 5% monoclonal plasma cells. With confirmation of disease progression, she was initiated on carfilzomib, pomalidomide, and dexamethasone. After two cycles of treatment, she showed small decrease in the light chain and increased again and overall remained stable with nearly seven cycles of the treatment. She was seen at my clinic in [place] for a second opinion with recommendation to continue on the current therapy until she progressed. Her sister has been confirmed as a match for allo transplant, though she does not want to pursue this any further unless it becomes more of a necessity. With her disease progression, the patient started on CPD early April 2015 and after two cycles in June 2015, her re-staging was concerning as her light chains are elevated again. Her bone marrow at that time revealed 1% monoclonal plasma cells, MRD with 1984 cells/million. After three more cycles of CPD, her serum light chain has essentially been stable. In September 2015 she had complete re-staging which shows her PET scan with progressive disease as compared to December 2014. Her bone marrow was stable with 2% monoclonal plasma cells, so interestingly, her MRD is down to 451 cells per million. Her light chains remained stable until cycle 7 and the kappa light chains increased again. The patient was offered chemotherapy with DPACE, followed by auto transplant; however, she elected to start daratumumab. The patient finished the eight weekly doses of daratumumab and four of the bi-weekly doses, and she is due today, March 31, 2016, to start her fifth dose of daratumumab, as the patient moved from [place], [place], and she would like to establish her care here. Patient completed 15 cycles of daratumumab, Velcade and methylprednisolone. Patient has been evaluated at [facility] with recommendation of treatment Velcade weekly, dexamethasone 20 mg weekly, and venetoclax orally. Patient will start this treatment the beginning of February 2017. HISTORY OF PRESENT ILLNESS Patient is here today for followup of her multiple myeloma, currently on treatment with Venetoclax, dexamethasone and Velcade. She is doing fine currently. Patient had a trip overseas and she came back last week. Her Velcade and dexamethasone were stopped prior to her trip, and the dose of venetoclax was reduced during her trip. She is complaining of alternating diarrhea and constipation. She continues to have back pain. She has some neuropathy in her feet, and she really has significant fatigue. PAST MEDICAL HISTORY 1. Multiple myeloma. 2. Hypothyroidism. PAST SURGICAL HISTORY 1. Kyphoplasty of the spine. 2. Back surgery with nerve ablation. SOCIAL HISTORY The patient is with one daughter. She is on disability because of multiple myeloma. She never smoked. She occasionally drank. Denies any abuse of illicit drugs. FAMILY HISTORY Father had bladder cancer in his late 80s. CURRENT MEDICATIONS 1. Magnesium oxide 400 mg. 2. Lactobacillus combination #4 probiotic, one capsule daily. 3. Multivitamin one tablet daily. 4. Vitamin D3 at 5000 units daily. 5. Promethazine 25 mg tablet every eight hours. 6. Zofran 8 mg as needed p.r.n. for nausea. 7. Voltaren 1% gel p.r.n. 8. Methylprednisolone 4 mg daily. 9. Trazodone 50 mg at bedtime. 10. Estradiol 0.05 mg transdermal patch every seven days. 11. Hydrocodone/acetaminophen 10/325 mg one tablet as needed. 12. Acyclovir 400 mg twice daily. ALLERGIES No known drug allergies. REVIEW OF SYSTEMS CONSTITUTIONAL: She has occasional night sweating. HEENT: Ears: No tinnitus or hearing problem. Nose: No nasal discharge or epistaxis. Throat: No sore throat or mouth ulcers. Eyes: No diplopia or visual changes. RESPIRATORY: No shortness of breath. No cough, expectoration or hemoptysis. CARDIOVASCULAR: No chest pain, orthopnea, or paroxysmal nocturnal dyspnea (PND) . No edema. No palpitations. GASTROINTESTINAL: She has alternating diarrhea and constipation. GENITOURINARY: No hematuria or dysuria. MUSCULOSKELETAL: She has back pain. NEUROLOGICAL: She has neuropathy in her feet. HEMATOLOGIC/LYMPHATIC: She is weak, tired, and fatigued. SKIN: No skin rash or lumps. PSYCHIATRIC: No anxiety or depression. PHYSICAL EXAMINATION GENERAL: Looks stable. Well-developed, well-nourished, and in no acute distress. VITAL SIGNS: Blood pressure 137/91, pulse 113 per minute, respirations 16 per minute, temperature 96.4, pulse ox 93% on room air. HEENT: Head: Atraumatic. No sinus tenderness to palpation. Eyes: No icterus or conjunctivitis. Mouth and throat: No oral thrush or mucositis. NECK: Supple. No cervical or supraclavicular lymphadenopathy. LUNGS: Clear to auscultation and percussion bilaterally. HEART: Regular rate and rhythm. No gallops, murmurs, clicks or rubs. ABDOMEN: Soft and lax. No tenderness. No hepatosplenomegaly. No masses. EXTREMITIES: No cyanosis, clubbing or edema. LYMPHATICS: No peripheral lymphadenopathy. NEUROLOGICAL: Conscious, alert and oriented times three. No focal motor or sensory deficits. PSYCHIATRIC: Mood and affect appear normal. SKIN: No skin rash, bruise or purpuric eruption. DIAGNOSTIC DATA CBC showed white count 1.5, hemoglobin 10.9, hematocrit 32.3, platelet 99,000. ANC is 1. Comprehensive metabolic panel is normal. Beta 2 microglobulin is normal at 1.8. [place] free light chain is 38.7, trending up. IgG level is 572, while IgA is less than 7 and IgM less than 5, while immunoelectrophoresis showed a normal pattern with no monoclonal protein. ASSESSMENT 1. Multiple myeloma diagnosed in 2014. Patient received one cycle of VDV, switched to VRD for a total of five cycles prior to her autologous stem cell transplant done May 16, 2015. Patient achieved partial remission after her bone marrow transplant, and she received maintenance VRD therapy for six cycles with achievement of complete remission January 2016. She progressed after that and received CBD chemotherapy. After progression she was offered chemotherapy with DPACE followed by autotransplant, but the patient refused such option and decided to go for daratumumab. She received 15 cycles of daratumumab. She twila evaluated at [facility] and was found to have progressive disease by PET scan July 02, 2016. Patient refused bone marrow transplant at that time despite the fact her sister is a full match. She was offered treatment with Keytruda and Revlimid under authorization to get the medication from the director consumer affairs as her insurance denied Keytruda treatment. Patient saw another oncologist at [facility] and she felt more comfortable with him. He offered her treatment with venetoclax and Velcade weekly and dexamethasone weekly. Patient started such treatment in February 2017. She is tolerating it very well. Apart from having fatigue she is really doing very well with that treatment. Her PET scan Jan 2017 was stable. Her kappa free light chain showed response to treatment. It dropped from 172 to 51.9 to 14.5. Because of her trip overseas, Velcade and dexamethasone were stopped lately prior to her trip, and the dose of venetoclax was also reduced, and her kappa free light chain currently is trending up at 38.7. Patient contacted [facility] about that and we are waiting for their response to resume back her Velcade and maybe full dose of venetoclax. For her extreme fatigue I am planning also to check her B12 folate and iron studies with ferritin. I will see her in two months with CBC, chem panel, LDH, uric acid and myeloma profile. And the patient will continue her regular labs every two weeks and to continue Zometa as per schedule. 2. Leukopenia with neutropenia. Current white count is 1.5 and the ANC is 1. Will continue to monitor. 3. 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 Continue Zometa. 4. Fatigue. Will check B12 folate and iron studies. 5. Hypothyroidism on supplement. PLAN 1. Await the response from [facility] regarding further management with the kappa free light chain trending up. 2. Patient to return in two months with CBC, chem panel, LDH, uric acid and myeloma profile. 3. Continue regular labs every two weeks. 4. Check B12 folate and iron studies with ferritin. 5. Continue Zometa as per schedule. 6. Patient is to contact us for any new concern or complaints. MTDD
[~2017-11-07] VITALS: Ht 172.7 cm; Wt 81.9 kg
[~2017-11-07 08:57] MED LIST changes: +ACETAMINOPHEN 325 MG TAB PO ONE; +ALTEPLASE RECOMB 2 MG VIAL IVP PRN; +BORTEZOMIB 3.5 MG INJS SC ONE; +CIPR-344 PO; +D5 1/2 NS(*) 1000 ML BAG 1,000 ML IV PRN; +DEXTROSE 5%(*) 100 ML BAG 100 ML IVPB PRN; +HYDROCORTISONE 100 MG/2 ML IVP ONE; +IMMU GLOB(IGG) 10GR/100ML VIAL 40 GR in EMPTY EVACUATED CONT 0 ML IV ONE; +NS(*) 0.9% 500 ML BAG 500 ML IV PRN; +PEGFILGRASTIM 6 MG/0.6 ML SYR SUBQ ONE; +WATER STERILE 10 ML VIAL IVP PRN; +ZOLEDRONIC ACID 4 MG/5 ML VIAL 4 MG in NS(*) 0.9% 100 ML BAG 100 ML IVPB ONE; +diphenhydrAMINE 25 MG CAP PO ONE
[2017-11-07 09:02] VITALS: BP 114/87
[2017-11-07 09:17] LABS: PLATELET COUNT, AUTOMATED 107 K/uL (150-450)
== END 2017-11-12 ==
LOC: SPU 08:57
PROVIDERS: ATTEND Internal Medicine Hematology
DX: C90.00 Multiple myeloma not having achieved remission (principal); D72.819 Decreased white blood cell count, unspecified; D70.9 Neutropenia, unspecified; R53.83 Other fatigue; E03.9 Hypothyroidism, unspecified; M89.8X9 Other specified disorders of bone, unspecified site; Z79.899 Other long term (current) drug therapy; M89.9 Disorder of bone, unspecified; R19.7 Diarrhea, unspecified; K59.00 Constipation, unspecified; G62.9 Polyneuropathy, unspecified
CPT/HCPCS: 36415; 82232; 82607; 82728; 82746; 83540; 83550; 83615; 83883; 83921; 84550; 85025; 85027; 85045; 86334; 96365; 96366; 96372; 96375; 96401; 99212; A9270; J1459; J1642; J1720; J2505; J3489; J7040; J7050; J9041; Q0163; 82040; 82247; 82310; 82374; 82435; 82565; 82947; 84075; 84132; 84155; 84295; 84450; 84460; 84520

== ENCOUNTER 2017-11-28 11:30 | Outpatient (RCR) | payer BC, MEDICARE ==
[2017-11-21] MEDS: LIDOCAINE/SOD BICARB 8.4% SYR ID PRN (09:47)
[2017-11-21] MEDS: HEPARIN FLSH (PORT) 500 UN/5ML IVP PRN ×2 (09:47→09:50)
[2017-11-21] MEDS: NS(*) 0.9% 100 ML BAG 100 ML IVPB PRN (09:48)
[2017-11-21 10:52] VITALS: BP 130/92
[2017-11-21 13:37] VITALS: BP 148/93
[~2017-11-28 11:30] MED LIST changes: -ACETAMINOPHEN 325 MG TAB PO ONE; -BORTEZOMIB 3.5 MG INJS SC ONE; -D5 1/2 NS(*) 1000 ML BAG 1,000 ML IV PRN; -HYDROCORTISONE 100 MG/2 ML IVP ONE; -IMMU GLOB(IGG) 10GR/100ML VIAL 40 GR in EMPTY EVACUATED CONT 0 ML IV ONE; -PEGFILGRASTIM 6 MG/0.6 ML SYR SUBQ ONE; +WATER FOR INJ,STERILE 20 ML IVP PRN; -WATER STERILE 10 ML VIAL IVP PRN; -diphenhydrAMINE 25 MG CAP PO ONE
[2017-11-28 12:10] LABS: PLATELET COUNT, AUTOMATED 120 K/uL (150-450)
[2017-11-28 13:35] VITALS: BP 128/92
[2017-12-01] MEDS ORDERED: FERRIC CARBOXY 750 MG SDV 750 MG in NS(*) 0.9% 250 ML BAG 250 ML IVP ONE (07:45)
[2017-12-01] MEDS: NS(*) 0.9% 100 ML BAG 100 ML IVPB PRN (08:16)
[2017-12-01] MEDS: LIDOCAINE/SOD BICARB 8.4% SYR ID PRN (08:16)
[2017-12-01 08:20] VITALS: BP 116/86
[2017-12-01] MEDS: HEPARIN FLSH (PORT) 500 UN/5ML IVP PRN (08:40)
[2017-12-01 08:44] VITALS: BP 126/81
== END 2017-12-13 14:02 | disposition home or self-care (01) ==
LOC: SPU 11:30
PROVIDERS: ATTEND Internal Medicine Hematology
DX: C90.00 Multiple myeloma not having achieved remission (principal)
CPT/HCPCS: 36415; 82232; 83615; 83883; 84550; 85025; 85027; 86334; 96365; 96374; J1439; J1642; J3489; J7050; 82040; 82247; 82310; 82374; 82435; 82565; 82947; 84075; 84132; 84155; 84295; 84450; 84460; 84520

== ENCOUNTER 2018-03-12 08:51 | Outpatient (RCR) | payer BC, MEDICARE ==
[2017-12-19 14:52] LABS: PLATELET COUNT, AUTOMATED 114 K/uL (150-450)
[2017-12-19] MEDS: LIDOCAINE/SOD BICARB 8.4% SYR ID PRN (15:07)
[2017-12-19] MEDS: HEPARIN FLSH (PORT) 500 UN/5ML IVP PRN ×2 (15:07→15:08)
[2017-12-26 13:26] LABS: PLATELET COUNT, AUTOMATED 127 K/uL (150-450)
[2018-01-23 11:05] VITALS: BP 121/95
[2018-01-23] MEDS: LIDOCAINE/SOD BICARB 8.4% SYR ID PRN (11:07)
[2018-01-23] MEDS: HEPARIN FLSH (PORT) 500 UN/5ML IVP PRN (11:08)
[2018-01-23 11:31] LABS: PLATELET COUNT, AUTOMATED 133 K/uL (150-450)
[2018-02-21] MEDS: LIDOCAINE/SOD BICARB 8.4% SYR ID PRN (11:18)
[2018-02-21] MEDS: HEPARIN FLSH (PORT) 500 UN/5ML IVP PRN ×2 (11:18→11:19)
[2018-02-21 11:29] LABS: PLATELET COUNT, AUTOMATED 118 K/uL (150-450)
[2018-02-21 12:08] VITALS: BP 123/85
[~2018-03-12 08:51] MED LIST changes: +FERRIC CARBOXY 750 MG SDV 750 MG in NS(*) 0.9% 250 ML BAG 250 ML IVP ONE; +NS(*) 0.9% 100 ML BAG 100 ML IVPB PRN; -TRAZ-156 PO; +TRAZ50TA34 PO; -ZOLEDRONIC ACID 4 MG/5 ML VIAL 4 MG in NS(*) 0.9% 100 ML BAG 100 ML IVPB ONE
[2018-03-12 08:55] VITALS: BP 135/95
--- NOTE | 2018-03-13 14:08 | [facility] ONCOLOGY NOTE ---
EVENT DATE: March 12, 2018 CHIEF COMPLAINT/REASON FOR VISIT Ms. 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 Please see her oncology history below for more details. HISTORY OF PRESENT ILLNESS/INTERVAL HISTORY Tejal returns. Overall, she is feeling quite well. She has no symptoms of concern. No new bone pain, concerning lumps or bumps, fevers, chills, weight loss. In general, she has tolerated her treatments extremely well since 2012. Her kappa light chain is rising slowly and we know that she develops more bone lesions when the light chain is near 100. She is currently at 55. As such, we are meeting today to discuss next steps in therapy. She is currently on venetoclax 900 mg with Velcade weekly 1.5 mg/m2 as well as dexamethasone 20 mg orally. She has been on this treatment for one year. It is a very logical and useful regimen given her 11;14 translocation. She use to follow with my mentor, Dr. Stringer, and now follows with one of his colleagues, Dr. Morgan, at the [facility] in [place]. They have an upcoming appointment next week. ONCOLOGY HISTORY The patient is a 51-year-old female who was diagnosed with kappa light chain multiple myeloma in December 2014. 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 She presented with anemia, hypercalcemia, numerous lytic lesions with compression of lumbar 2 and renal failure. Her animal protein at diagnosis was 0.3 gm/dL. She is status one cycle of VTD, then switched to VRD and completed a total of five cycles of induction. She received mobilization with G-CSF and collected a total of 14.9 x 10 (6) CD34/kg and her single agent melphalan autotransplant on March 16, 2013. She achieved VGPR with residual bone marrow and monoclonal protein involvement. She was started on VRD maintenance and completed six cycles and achieved a complete remission by serum and urine markers. Bone marrow biopsy January 2014 was less than 1% monoclonal plasma cells. The patient was switched to Revlimid and continued on that treatment until March 2015, when she showed signs of progression. She had light chain elevation in December 2014, and her Revlimid dose was increased to 10 mg, having been decreased due to cytopenias before. In March 2015, she had further progression of her kappa light chain of 24, K/L ratio of 26. No monoclonal protein in her serum or urine. She underwent bone marrow biopsy which showed 5% monoclonal plasma cells. With confirmation of disease progression, she was initiated on carfilzomib, pomalidomide, and dexamethasone. After two cycles of treatment, she showed small decrease in the light chain and increased again and overall remained stable with nearly seven cycles of the treatment. She was seen at my [facility] in [place] for a second opinion with recommendation to continue on the current therapy until she progressed. Her sister has been confirmed as a match for allo transplant, though she does not want to pursue this any further unless it becomes more of a necessity. With her disease progression, the patient started on CPD early April 2015 and after two cycles in June 2015, her re-staging was concerning as her light chains are elevated again. Her bone marrow at that time revealed 1% monoclonal plasma cells, MRD with 1984 cells/million. After three more cycles of CPD, her serum light chain has essentially been stable. In September 2015 she had complete re- staging which shows her PET scan with progressive disease as compared to December 2014. Her bone marrow was stable with 2% monoclonal plasma cells, so interestingly, her MRD is down to 451 cells per million. Her light chains remained stable until cycle 7 and the kappa light chains increased again. The patient was offered chemotherapy with DPACE, followed by auto transplant; however, she elected to start daratumumab. The patient finished the eight weekly doses of daratumumab and four of the bi-weekly doses, and she is due today, March 31, 2016, to start her fifth dose of daratumumab, as the patient moved from [place] to [place], [place], and she would like to establish her care here. Patient completed 15 cycles of daratumumab, Velcade and methylprednisolone. Patient has been evaluated at [facility] with recommendation of treatment Velcade weekly, dexamethasone 20 mg weekly, and venetoclax orally. Patient will start this treatment the beginning of February 2017. PAST SURGICAL HISTORY 1. Kyphoplasty of the spine. 2. Back surgery with nerve ablation. SOCIAL HISTORY The patient is with one daughter. She is on disability because of multiple myeloma. She never smoked. She occasionally drank. Denies any abuse of illicit drugs. FAMILY HISTORY Father had bladder cancer in his late 80s. REVIEW OF SYSTEMS CONSTITUTIONAL: No fevers, chills or weight change. HEENT: No headache or vision changes. CARDIOVASCULAR: No chest pain, dyspnea on exertion or edema. RESPIRATORY: No shortness of breath, wheezing or cough. GI: No nausea or vomiting. Positive constipation. EXTREMITIES: No clubbing, cyanosis or edema. SKIN: No concerning lesions, rashes. LYMPHATIC: No concerning lumps or bumps. NEUROLOGIC: No weakness or numbness. PSYCHIATRIC: Normal mood and affect. The remainder of 14-point review of systems is otherwise negative. PHYSICAL EXAMINATION VITAL SIGNS: Blood pressure 135/95, pulse 99, respiratory rate 16, temperature 98.3 Fahrenheit, oxygen saturation 93% on room air. Weight 83.9 kg. Pain 07/26, fatigue 09/23. Low fall risk. GENERAL: Stable condition, resting comfortably in the chair. HEENT: Normocephalic, atraumatic. CARDIOVASCULAR: Regular rate and rhythm. Normal S1 and S2. No murmurs, rubs or gallops. LUNGS: Clear to auscultation bilaterally. No wheezes. ABDOMEN: Soft and nontender. No organomegaly. EXTREMITIES: No clubbing, cyanosis or edema. LYMPHATIC: No appreciable cervical, clavicular or axillary lymphadenopathy. PSYCHIATRIC: Normal mood and affect. The remainder of the physical exam is otherwise unremarkable. IMPRESSION AND PLAN Ms. Johnson is a vey pleasant 52-year-old female with multiple myeloma that is showing kappa light chain relapse. Fortunately, she has no CRAB symptoms at this time. We are due to repeat imaging of the bone and plan to get either a PET scan, MR survey or bone survey. It appears that she last had a PET scan approximately one year ago and ideally we would repeat this for comparison. We have multiple options at this time including transitioning to an elotuzumab based regimen with pomalidomide. We could consider recycling therapy with nucleotides concept and utilize daratumumab, pomalidomide and dexamethasone. Allogeneic stem cell transplant as well as repeat autotransplant are options. However, I would like her to consider CAR T-cell therapy trials. We have our colleagues in [place] with Dr. Quezada and Dr. Starkey that are able to offer this and we could consider a consultation with them. Unfortunately, we are not providing this service in [place] or in [facility] given our lack of a transplant center. We could consider continuing therapy as well. However, I do not believe we could do that for many more months as she developed bone lesions in the past when her kappa was near 100. It has been as high as 172 in the past. She sees Dr. Morgan at [facility] next week and I will await their recommendations and thoughts about these options and then meet with her again in March to discuss next steps. I answered all of her questions today. Billing: Return visit level 5. Total time 60 minutes, counseling time 45. MTDD
== END 2018-03-18 ==
LOC: ONC 08:51
PROVIDERS: ATTEND Internal Medicine Hematology
DX: C90.00 Multiple myeloma not having achieved remission (principal)
CPT/HCPCS: 36415; 36591; 82232; 83615; 83883; 84550; 85025; 86334; 96365; 99202; J1439; J1642; J7050; 82040; 82247; 82310; 82374; 82435; 82565; 82947; 84075; 84132; 84155; 84295; 84450; 84460; 84520

== ENCOUNTER 2018-06-06 11:30 | Outpatient (RCR) | payer BC, MEDICARE ==
[2018-03-22] MEDS: HEPARIN FLSH (PORT) 500 UN/5ML IVP PRN (10:27)
[2018-03-22] MEDS: LIDOCAINE/SOD BICARB 8.4% SYR ID PRN (10:28)
[2018-03-22 10:29] VITALS: BP 117/89
[2018-03-22 10:31] LABS: PLATELET COUNT, AUTOMATED 130 K/uL (150-450)
[2018-04-09 11:00] VITALS: BP 137/91
--- NOTE | 2018-04-10 23:19 | ONCOLOGY FOLLOW UP NOTE ---
EVENT DATE: April 09, 2018 CHIEF COMPLAINT/REASON FOR VISIT Ms. 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 Please see her oncology history below for more details. HISTORY OF PRESENT ILLNESS Tejal returns. She continues to feel well. Her light chains are increasing, though, approximately eight to 10 per month. We know that she develops more bone lesions when her light chain is near 100. As such, I would like to discuss more therapy with her today. She recently saw Dr. Morgan who has recommended strong consideration of CAR-T cell therapy. After my visit with Tejal today, I communicated with the [facility] team in [place] which currently has the only CAR-T cell therapy in the region. Unfortunately, they have so many patients on the waiting list that the company that runs this trial has recommended that they no longer screen additional patients. We have previously talked about consideration of other therapies such as elotuzumab-based therapy combined with pomalidomide. She could consider a second transplant as well. I have encouraged her to try to get on the list at the [facility] in [place] when that trial becomes available for CAR-T cell therapy. We could consider other areas of the country as well; however, I am concerned we will find the same outcome. Other options include repeat auto transplant as well as allogeneic stem cell transplant. Fortunately, no new symptoms today. No bone pain. She occasionally has intermittent point tenderness, but it is fleeting, and I do not believe it is related to her myeloma. It is superficial on the skin. It does not feel like a deep bone ache. ONCOLOGY HISTORY The patient is a 52-year-old female who was diagnosed with kappa light chain multiple myeloma in December 2014. 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 She presented with anemia, hypercalcemia, numerous lytic lesions with compression of lumbar 2 and renal failure. Her animal protein at diagnosis was 0.3 gm/dL. She is status one cycle of VTD, then switched to VRD and completed a total of five cycles of induction. She received mobilization with G-CSF and collected a total of 14.9 x 10 (6) CD34/kg and her single agent melphalan autotransplant on March 16, 2013. She achieved VGPR with residual bone marrow and monoclonal protein involvement. She was started on VRD maintenance and completed six cycles and achieved a complete remission by serum and urine markers. Bone marrow biopsy January 2014 was less than 1% monoclonal plasma cells. The patient was switched to Revlimid and continued on that treatment until March 2015, when she showed signs of progression. She had light chain elevation in December 2014, and her Revlimid dose was increased to 10 mg, having been decreased due to cytopenias before. In March 2015, she had further progression of her kappa light chain of 24, K/L ratio of 26. No monoclonal protein in her serum or urine. She underwent bone marrow biopsy which showed 5% monoclonal plasma cells. With confirmation of disease progression, she was initiated on carfilzomib, pomalidomide, and dexamethasone. After two cycles of treatment, she showed small decrease in the light chain and increased again and overall remained stable with nearly seven cycles of the treatment. She was seen at [facility] in [place] for a second opinion with recommendation to continue on the current therapy until she progressed. Her sister has been confirmed as a match for allo transplant, though she does not want to pursue this any further unless it becomes more of a necessity. With her disease progression, the patient started on CPD early April 2015 and after two cycles in June 2015, her re-staging was concerning as her light chains are elevated again. Her bone marrow at that time revealed 1% monoclonal plasma cells, MRD with 1984 cells/million. After three more cycles of CPD, her serum light chain has essentially been stable. In September 2015 she had complete re- staging which shows her PET scan with progressive disease as compared to December 2014. Her bone marrow was stable with 2% monoclonal plasma cells, so interestingly, her MRD is down to 451 cells per million. Her light chains remained stable until cycle 7 and the kappa light chains increased again. The patient was offered chemotherapy with DPACE, followed by auto transplant; however, she elected to start daratumumab. The patient finished the eight weekly doses of daratumumab and four of the bi-weekly doses, and she is due today, March 31, 2016, to start her fifth dose of daratumumab, as the patient moved from [place] to [place], [place], and she would like to establish her care here. Patient completed 15 cycles of daratumumab, Velcade and methylprednisolone. Patient has been evaluated at [facility] with recommendation of treatment Velcade weekly, dexamethasone 20 mg weekly, and venetoclax orally. Patient will start this treatment the beginning of February 2017. PAST SURGICAL HISTORY 1. Kyphoplasty of the spine. 2. Back surgery with nerve ablation. SOCIAL HISTORY The patient is with one daughter. She is on disability because of multiple myeloma. She never smoked. She occasionally drank. Denies any abuse of illicit drugs. FAMILY HISTORY Father had bladder cancer in his late 80s. REVIEW OF SYSTEMS CONSTITUTIONAL: No fevers, chills, or weight change. HEENT: No headache or vision changes. CARDIOVASCULAR: No chest pain, dyspnea on exertion, or edema. RESPIRATORY: No shortness of breath, wheezing, or cough. GASTROINTESTINAL: No nausea or vomiting. Positive constipation. EXTREMITIES: No clubbing, cyanosis, or edema. SKIN: No concerning lesions, rashes. LYMPHATIC: No concerning lumps or bumps. NEUROLOGIC: No weakness or numbness. PSYCHIATRIC: Normal mood and affect. The remainder of 14-point review of systems is otherwise negative. PHYSICAL EXAMINATION VITAL SIGNS: Blood pressure 137/91, pulse 98, respiratory rate 14, temperature 98.3 Fahrenheit, oxygen saturation 92% on room air. Weight 83.6 kg. Pain 1/10. Fatigue 3/10. GENERAL: Stable condition, resting comfortably in the chair. HEENT: Normocephalic, atraumatic. EXTREMITIES: No clubbing, cyanosis, or edema. A full physical exam is deferred today due to the amount of time spent in counseling and coordination of care. IMPRESSION/REPORT/PLAN Ms. Johnson is a very pleasant female with the followin. Multiple myeloma with kappa light chain relapse. Will continue her current therapy, but we need to investigate pursuing other options. Options include elotuzumab with pomalidomide and dexamethasone, and that would likely be my next choice. We could also consider repeat autologous stem cell transplant, but she is not interested in that. She could consider a more aggressive approach with allogeneic stem cell transplant as well. I will make every effort that I can to get her on a list for CAR-T cell therapy, but I am concerned that right now so many patients are interested that this may not be possible. The [facility] would be getting her on a list as she is an ideal candidate for this. Will see her in monthly during treatment and continue to try to get her on trial as soon as possible. BILLING Return visit level 4. Total time 30 minutes, counseling time 20. MTDD
[2018-04-17] MEDS: HEPARIN FLSH (PORT) 500 UN/5ML IVP PRN (13:40)
[2018-04-17] MEDS: LIDOCAINE/SOD BICARB 8.4% SYR ID PRN (13:40)
[2018-04-17 13:49] LABS: PLATELET COUNT, AUTOMATED 103 K/uL (150-450)
[2018-05-07 08:02] VITALS: BP 132/80
--- NOTE | 2018-05-07 11:27 | [facility]ER ONCOLOGY NOTE ---
CHIEF COMPLAINT/REASON FOR VISIT Ms. Johnson is a pleasant 52-year-old female with multiple myeloma with a translocation of 11 and 14, as well as deletions of 13 and 16q, who presents for followup on sixth line therapy with Velcade, venetoclax, and dexamethasone. She is currently holding the Velcade. HISTORY OF PRESENT ILLNESS: Tejal returns. She continues to do well. Her light chains continue to increase approximately eight to 10 per month. We know from previous experience that she developed some more bone lesions when her light chains are near 100. She recently had a level done in [place], which showed a level of 100. She has no new bone pain thankfully. She is now first on the list for a CAR-T therapy trial with [facility] with Dr. Fraire in [place]. She is going to move forward with that with stem cell collection very soon. We are going to continue the venetoclax and dexamethasone without Velcade in the interim. Fortunately, she has no new symptoms. No bone pain. No other concerns today. She does have some chronic sensory neuropathy, but no motor neuropathy. ONCOLOGY HISTORY The patient is a 52-year-old female who was diagnosed with kappa light chain multiple myeloma in December 2014. 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 She presented with anemia, hypercalcemia, numerous lytic lesions with compression of lumbar 2 and renal failure. Her animal protein at diagnosis was 0.3 gm/dL. She is status one cycle of VTD, then switched to VRD and completed a total of five cycles of induction. She received mobilization with G-CSF and collected a total of 14.9 x 10 (6) CD34/kg and her single agent melphalan autotransplant on March 16, 2013. She achieved VGPR with residual bone marrow and monoclonal protein involvement. She was started on VRD maintenance and completed six cycles and achieved a complete remission by serum and urine markers. Bone marrow biopsy January 2014 was less than 1% monoclonal plasma cells. The patient was switched to Revlimid and continued on that treatment until March 2015, when she showed signs of progression. She had light chain elevation in December 2014, and her Revlimid dose was increased to 10 mg, having been decreased due to cytopenias before. In March 2015, she had further progression of her kappa light chain of 24, K/L ratio of 26. No monoclonal protein in her serum or urine. She underwent bone marrow biopsy which showed 5% monoclonal plasma cells. With confirmation of disease progression, she was initiated on carfilzomib, pomalidomide, and dexamethasone. After two cycles of treatment, she showed small decrease in the light chain and increased again and overall remained stable with nearly seven cycles of the treatment. She was seen at my clinic in [place] for a second opinion with recommendation to continue on the current therapy until she progressed. Her sister has been confirmed as a match for allo transplant, though she does not want to pursue this any further unless it becomes more of a necessity. With her disease progression, the patient started on CPD early April 2015 and after two cycles in June 2015, her re-staging was concerning as her light chains are elevated again. Her bone marrow at that time revealed 1% monoclonal plasma cells, MRD with 1984 cells/million. After three more cycles of CPD, her serum light chain has essentially been stable. In September 2015 she had complete re- staging which shows her PET scan with progressive disease as compared to December 2014. Her bone marrow was stable with 2% monoclonal plasma cells, so interestingly, her MRD is down to 451 cells per million. Her light chains remained stable until cycle 7 and the kappa light chains increased again. The patient was offered chemotherapy with DPACE, followed by auto transplant; however, she elected to start daratumumab. The patient finished the eight weekly doses of daratumumab and four of the bi-weekly doses, and she is due today, March 31, 2016, to start her fifth dose of daratumumab, as the patient moved from [place], [place], and she would like to establish her care here. Patient completed 15 cycles of daratumumab, Velcade and methylprednisolone. Patient has been evaluated at [facility] with recommendation of treatment Velcade weekly, dexamethasone 20 mg weekly, and venetoclax orally. Patient will start this treatment the beginning of February 2017. PAST SURGICAL HISTORY 1. Kyphoplasty of the spine. 2. Back surgery with nerve ablation. SOCIAL HISTORY The patient is with one daughter. She is on disability because of multiple myeloma. She never smoked. She occasionally drank. Denies any abuse of illicit drugs. FAMILY HISTORY Father had bladder cancer in his late 80s. REVIEW OF SYSTEMS CONSTITUTIONAL: No fevers, chills, or weight change. HEENT: No headache or vision changes. CARDIOVASCULAR: No chest pain, dyspnea on exertion, or edema. RESPIRATORY: No shortness of breath, wheezing, or cough. GASTROINTESTINAL: No nausea or vomiting. Positive constipation. EXTREMITIES: No clubbing, cyanosis, or edema. SKIN: No concerning lesions, rashes. LYMPHATIC: No concerning lumps or bumps. NEUROLOGIC: No weakness or numbness. PSYCHIATRIC: Normal mood and affect. The remainder of 14-point review of systems is otherwise negative. PHYSICAL EXAMINATION: VITAL SIGNS: Blood pressure 132/80, pulse 110, respiratory rate 16, temperature 98.2 Fahrenheit, oxygen saturation 95% on room air. Weight 84.9 kg and stable. Pain 07/26. Fatigue 08/26. GENERAL: Stable condition, resting comfortably in the chair. HEENT: Normocephalic, atraumatic. CARDIOVASCULAR: Regular rate and rhythm. She had a normal pulse at the time of my exam. LUNGS: Clear to auscultation bilaterally. ABDOMEN: Soft, nontender, nondistended. No masses or organomegaly. EXTREMITIES: No clubbing, cyanosis, or edema. NEUROLOGIC: She has sensory numbness in the feet, but none in the hands. No motor components. Remainder of the physical exam is otherwise unremarkable. IMPRESSION/REPORT/PLAN Ms. Johnson is a very pleasant 52-year-old female with the followin. Multiple myeloma with kappa light chain relapse. We will continue the venetoclax and dexamethasone without the Velcade. She is moving forward with CAR-T cell therapy with Dr. Fraire, which is ideal. Future options include elotuzumab with pomalidomide and dexamethasone as well as a more aggressive approach with allogeneic stem cell transplant. Hopefully, we are able to control her disease and potentially even have cure with the CAR-T cell therapy. This is experimental, of course, and on a clinical trial. We discussed the clinical trial in detail today. BILLING Total time 45 minutes, counseling time 40. Billing level number 5. MTDD
[2018-05-16 13:54] LABS: PLATELET COUNT, AUTOMATED 101 K/uL (150-450)
[2018-05-16] MEDS: HEPARIN FLSH (PORT) 500 UN/5ML IVP PRN (14:29)
[2018-05-16] MEDS: LIDOCAINE/SOD BICARB 8.4% SYR ID PRN (14:29)
[2018-05-23 11:45] LABS: PLATELET COUNT, AUTOMATED 126 K/uL (150-450)
[2018-05-30 11:53] VITALS: BP 113/79
[2018-05-30 12:04] LABS: PLATELET COUNT, AUTOMATED 139 K/uL (150-450)
[2018-06-04 10:13] VITALS: BP 129/88
--- NOTE | 2018-06-05 03:43 | ONCOLOGY FOLLOW UP NOTE ---
EVENT DATE: June 04, 2018 CHIEF COMPLAINT Followup for multiple myeloma. HISTORY OF PRESENT ILLNESS Patient is a 52-year-old female with multiple myeloma with translocation of 11 and 14 as well as deletions of 13 and 16q. She has been recently on six-line therapy with Velcade, venetoclax, and dexamethasone. Velcade has been held. She is in the process of CAR T therapy and today presents stating that she will receive chemotherapy in [place] from 06/13/18 through 06/15/18, and the CAR-T therapy itself will be on 06/18/18. Her dexamethasone and venetoclax were stopped on 05/29/18. She is excited to be proceeding with this. Of note, she has had some recent epistaxis. She has chronic neuropathy in her toes. She did note some overall bony arthralgias after her T-cells were collected, and she felt some improvement when she restarted the dexamethasone and venetoclax. Pain is under good control with hydrocodone on a p.r.n. basis. She denies any other new complaints. ONCOLOGY HISTORY The patient is a 52-year-old female who was diagnosed with kappa light chain multiple myeloma in December 2014. 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 She presented with anemia, hypercalcemia, numerous lytic lesions with compression of lumbar 2 and renal failure. Her animal protein at diagnosis was 0.3 gm/dL. She is status one cycle of VTD, then switched to VRD and completed a total of five cycles of induction. She received mobilization with G-CSF and collected a total of 14.9 x 10 (6) CD34/kg and her single agent melphalan autotransplant on March 16, 2013. She achieved VGPR with residual bone marrow and monoclonal protein involvement. She was started on VRD maintenance and completed six cycles and achieved a complete remission by serum and urine markers. Bone marrow biopsy January 2014 was less than 1% monoclonal plasma cells. The patient was switched to Revlimid and continued on that treatment until March 2015, when she showed signs of progression. She had light chain elevation in December 2014, and her Revlimid dose was increased to 10 mg, having been decreased due to cytopenias before. In March 2015, she had further progression of her kappa light chain of 24, K/L ratio of 26. No monoclonal protein in her serum or urine. She underwent bone marrow biopsy which showed 5% monoclonal plasma cells. With confirmation of disease progression, she was initiated on carfilzomib, pomalidomide, and dexamethasone. After two cycles of treatment, she showed small decrease in the light chain and increased again and overall remained stable with nearly seven cycles of the treatment. She was seen at my clinic in [place] for a second opinion with recommendation to continue on the current therapy until she progressed. Her sister has been confirmed as a match for allo transplant, though she does not want to pursue this any further unless it becomes more of a necessity. With her disease progression, the patient started on CPD early April 2015 and after two cycles in June 2015, her re-staging was concerning as her light chains are elevated again. Her bone marrow at that time revealed 1% monoclonal plasma cells, MRD with 1984 cells/million. After three more cycles of CPD, her serum light chain has essentially been stable. In September 2015 she had complete re- staging which shows her PET scan with progressive disease as compared to December 2014. Her bone marrow was stable with 2% monoclonal plasma cells, so interestingly, her MRD is down to 451 cells per million. Her light chains remained stable until cycle 7 and the kappa light chains increased again. The patient was offered chemotherapy with DPACE, followed by auto transplant; however, she elected to start daratumumab. The patient finished the eight weekly doses of daratumumab and four of the bi-weekly doses, and she is due today, March 31, 2016, to start her fifth dose of daratumumab, as the patient moved from [place] to [place], [place], and she would like to establish her care here. Patient completed 15 cycles of daratumumab, Velcade and methylprednisolone. Patient was evaluated at the [facility] and received Velcade, dexamethasone, and venetoclax from February 2017 through May 2018. To undergo CAR-T therapy on 06/18/18. PAST MEDICAL HISTORY 1. Multiple myeloma. 2. Hypothyroidism. 3. GERD. PAST SURGICAL HISTORY 1. Kyphoplasty of the spine. 2. Back surgery with nerve ablation. FAMILY HISTORY Father had bladder cancer in his late 80s. SOCIAL HISTORY The patient is . She lives with her daughter. She is on disability because of multiple myeloma. She never smoked. She occasionally drank. She denies any abuse of illicit drugs. MEDICATIONS 1. Combipatch twice weekly 2. Levothyroxine 150mcg daily 3. Omeprazole 20mg daily 4. Duloxetine 60mg daily 5. Acyclovir 400mg BID 6. Hydrocodone-APAP 5-325mg prn 7. Vit D3 5000iu daily 8. Trazodone 50mg q HS 9. Voltaren 1% gel ALLERGIES No known drug allergies REVIEW OF SYSTEMS A 12-point review of systems is performed and is negative except as stated above. PHYSICAL EXAMINATION VITAL SIGNS: Weight 84.9 kg, BP 129/88, P 96, R 16, temp 98.9, O2 saturation 92%. GENERAL: The patient is a well-developed, well-nourished female in no acute distress. HEAD: Atraumatic, normocephalic. EYES: Sclerae anicteric. MOUTH: Moist mucous membranes. No lesions. LUNGS: Clear bilaterally. CARDIOVASCULAR: Heart rate regular, 88 per minute, without murmur, S3 or S4. EXTREMITIES: No edema. LABORATORY CBC on 05/30/18 showed a WBC of 7.6, hemoglobin 13.5, hematocrit 38.7, platelets 139,000. CMP and phosphorus were both within normal limits. IMPRESSION AND PLAN The patient is a 52-year-old female with multiple myeloma with kappa light chain relapse. She received six-line therapy with Velcade, venetoclax, and dexamethasone, discontinued in May 2018, to receive CAR-T therapy on 06/18/18. 1. Multiple myeloma. Reviewed labs with patient. She is pleased that her white count and her platelets are both up. 2. CAR-T therapy. She will undergo chemotherapy from 06/13/18 through 06/15/18 and present for CAR-T therapy on 06/18/18. She will be hospitalized for a week and will remain in the [facility] for three more weeks. Her sister and her daughter will be with her during that time. 3. Epistaxis. None recent. Platelet count on 05/30/18 was 139,000. 4. Chronic pain. She uses hydrocodone with good effect. Hydrocodone 5-325 mg, #60, is refilled today. 5. Patient will follow up with Dr. Mcghee at his [place] office after CAR-T therapy. [facility]
[~2018-06-06 11:30] MED LIST changes: -FERRIC CARBOXY 750 MG SDV 750 MG in NS(*) 0.9% 250 ML BAG 250 ML IVP ONE; -HYDR-4309 PO; +HYDR-653 PO; +INFLUENZA VIRUS VAC 0.5ML SYR IM ONLY ONE
[2018-06-06 11:44] LABS: PLATELET COUNT, AUTOMATED 163 K/uL (150-450)
[2018-06-20] MEDS ORDERED: ESTR1PAT77 TD (15:04)
== END 2018-06-20 ==
LOC: SPU 11:30
PROVIDERS: ATTEND Internal Medicine
DX: C90.00 Multiple myeloma not having achieved remission (principal); Z23 Encounter for immunization
CPT/HCPCS: 36415; 36591; 82232; 83615; 83735; 83883; 84100; 84550; 85025; 86334; 90471; 90674; 96523; 99212; J1642; 82040; 82247; 82310; 82374; 82435; 82565; 82947; 84075; 84132; 84155; 84295; 84450; 84460; 84520

== ENCOUNTER 2018-10-22 10:28 | Outpatient (RCR) | payer MEDICARE, BC ==
[2018-07-31 08:58] VITALS: BP 136/105
[2018-07-31] MEDS: LIDOCAINE/SOD BICARB 8.4% SYR ID PRN (09:56)
[2018-07-31 13:53] VITALS: BP 126/91
[2018-07-31] MEDS: HEPARIN FLSH (PORT) 500 UN/5ML IVP PRN (14:02)
[2018-07-31 14:03] VITALS: BP 137/91
[2018-08-08 09:58] VITALS: BP 137/99
--- NOTE | 2018-08-08 12:00 | NUR ---
Pt completed initial HADS form. Pt scored: A:1, D:1. No concerns at this time.
[2018-08-13 10:02] VITALS: BP 126/88
--- NOTE | 2018-08-13 14:42 | SCHUSTER ONCOLOGY NOTE ---
EVENT DATE: August 13, 2018 CHIEF COMPLAINT/REASON FOR VISIT Ms. Johnson is a very pleasant 52-year-old female with multiple myeloma with translocations of 11;14 as well as deletions of 13 and 16q who presents for followup after seventh line therapy with CAR-T cell therapy. Her sixth line therapy consisted of Velcade, venetoclax, and dexamethasone. HISTORY OF PRESENT ILLNESS: Tejal geiger. She tolerated CAR-T cell therapy under the care of Dr. Fraire extremely well. She was on the fifth cohort of the CAR-T cell therapy with [facility] and received her cells on June 25, 2018. She did have some mild confusion with treatment and nausea but overall tolerated therapy exceedingly well. Fortunately, no symptoms of great concern. She notes intermittent nausea that seems to happen whenever she exerts herself. I suspect based on her description that she is overexerting herself as she is only six weeks out from chemotherapy and these are symptoms related to the chemotherapy portion of CAR-T cell therapy as opposed to immunologic issue. She can rest for five minutes and the symptoms will go away. Thus, I do not feel that this is a colitis or something that requires aggressive workup. She has her chronic sensory neuropathy but no new neuropathy and no motor neuropathy. No fevers, chills, issues with infection. She is getting IVIG as well as pentamidine prophylaxis. She had her last dose approximately one week ago. No other new issues today. Her labs showed improvement according to Dr. Fraire. I do not have her most free light chains. Their normal ranges differ from ours so it is difficult to say exactly where her level is. We are going to begin checking them here in [place] monthly with each IVIG. ONCOLOGY HISTORY The patient is a 52-year-old female who was diagnosed with kappa light chain multiple myeloma in December 2014. 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 She presented with anemia, hypercalcemia, numerous lytic lesions with compression of lumbar 2 and renal failure. Her animal protein at diagnosis was 0.3 gm/dL. She is status one cycle of VTD, then switched to VRD and completed a total of five cycles of induction. She received mobilization with G-CSF and collected a total of 14.9 x 10 (6) CD34/kg and her single agent melphalan autotransplant on March 16, 2013. She achieved VGPR with residual bone marrow and monoclonal protein involvement. She was started on VRD maintenance and completed six cycles and achieved a complete remission by serum and urine markers. Bone marrow biopsy January 2014 was less than 1% monoclonal plasma cells. The patient was switched to Revlimid and continued on that treatment until March 2015, when she showed signs of progression. She had light chain elevation in December 2014, and her Revlimid dose was increased to 10 mg, having been decreased due to cytopenias before. In March 2015, she had further progression of her kappa light chain of 24, K/L ratio of 26. No monoclonal protein in her serum or urine. She underwent bone marrow biopsy which showed 5% monoclonal plasma cells. With confirmation of disease progression, she was initiated on carfilzomib, pomalidomide, and dexamethasone. After two cycles of treatment, she showed small decrease in the light chain and increased again and overall remained stable with nearly seven cycles of the treatment. She was seen at [facility] in [place] for a second opinion with recommendation to continue on the current therapy until she progressed. Her sister has been confirmed as a match for allo transplant, though she does not want to pursue this any further unless it becomes more of a necessity. With her disease progression, the patient started on CPD early April 2015 and after two cycles in June 2015, her re-staging was concerning as her light chains are elevated again. Her bone marrow at that time revealed 1% monoclonal plasma cells, MRD with 1984 cells/million. After three more cycles of CPD, her serum light chain has essentially been stable. In September 2015 she had complete re- staging which shows her PET scan with progressive disease as compared to December 2014. Her bone marrow was stable with 2% monoclonal plasma cells, so interestingly, her MRD is down to 451 cells per million. Her light chains remained stable until cycle 7 and the kappa light chains increased again. The patient was offered chemotherapy with DPACE, followed by auto transplant; however, she elected to start daratumumab. The patient finished the eight weekly doses of daratumumab and four of the bi-weekly doses, and she is due today, March 31, 2016, to start her fifth dose of daratumumab, as the patient moved from [place] to [place], [place], and she would like to establish her care here. Patient completed 15 cycles of daratumumab, Velcade and methylprednisolone. Patient has been evaluated at [facility] with recommendation of treatment Velcade weekly, dexamethasone 20 mg weekly, and venetoclax orally. Patient will start this treatment the beginning of February 2017. PAST SURGICAL HISTORY 1. Kyphoplasty of the spine. 2. Back surgery with nerve ablation. SOCIAL HISTORY The patient is with one daughter. She is on disability because of multiple myeloma. She never smoked. She occasionally drank. Denies any abuse of illicit drugs. FAMILY HISTORY Father had bladder cancer in his late 80s. REVIEW OF SYSTEMS CONSTITUTIONAL: No fevers, chills, significant weight change. NEUROLOGIC: No deficits, weakness. She does have chronic neuropathy that is unchanged. HEENT: No headache or vision changes. CARDIOVASCULAR: No chest pain, dyspnea on exertion, or edema. RESPIRATORY: No shortness of breath, wheezing, or cough. GASTROINTESTINAL: No nausea or vomiting at rest. She does have intermittent mild nausea with exertion. No constipation currently. GENITOURINARY: No dysuria or hematuria. MUSCULOSKELETAL: No weakness or joint pain. PSYCHIATRIC: No anxiety or depression. ENDOCRINE: No heat or cold intolerance. The remainder of 14-point review of systems is otherwise negative. PHYSICAL EXAMINATION: VITAL SIGNS: Blood pressure 126/88, pulse 113 (believed to be related to exertion as these vitals were checked right after she ran in), respiratory rate 16, temperature 97.8 Fahrenheit, oxygen saturation 97% on room air. Weight 93.8 kg. Pain 2/10. Fatigue 0/10. GENERAL: Stable condition, resting comfortably in the chair. HEENT: Normocephalic, atraumatic. CARDIOVASCULAR: Exam deferred. LUNGS: No respiratory distress. ABDOMEN: Soft, nontender, nondistended. No masses or organomegaly. EXTREMITIES: No clubbing, cyanosis, or edema. NEUROLOGIC: Alert and oriented x3. No change in her sensory deficits. Remainder of full physical exam is otherwise deferred today due to amount of time spent in counseling and coordination of care. IMPRESSION/REPORT/PLAN Ms. Johnson is a very pleasant 52-year-old female with the followin. Multiple myeloma with kappa light chain relapse, having been treated with venetoclax and dexamethasone (Velcade held) before transitioning to CAR-T cell therapy with Dr. Fraire in June 2018. Future options include elotuzumab with pomalidomide as well as a more aggressive approach with allogeneic stem cell transplant. Hopefully, we are able to control her disease with CAR-T cell therapy and by report she is responding thus far, which is excellent. I answered all of her many questions today, reviewed her history in detail, discussed with Dr. Fraire and we will discuss with him again after the visit. BILLING Total time 45 minutes, counseling time 25. Level 5. MTDD
[2018-08-28 09:06] VITALS: BP 127/92
[2018-08-28] MEDS: LIDOCAINE/SOD BICARB 8.4% SYR ID PRN (09:30)
[2018-08-28] MEDS: HEPARIN FLSH (PORT) 500 UN/5ML IVP PRN (09:30)
--- NOTE | 2018-08-28 10:15 | ONCOLOGY FOLLOW UP NOTE ---
EVENT DATE: August 28, 2018 CHIEF COMPLAINT Followup for multiple myeloma. HISTORY OF PRESENT ILLNESS Patient is a 52-year-old female who is seen today in followup. She underwent CAR T therapy on June 25, 2019. She saw Dr. Montejo last week. Her kappa light chains had doubled so he did not feel that the CAR T therapy was effective. This has obviously been overwhelming for her. She feels fairly well, although has noted more rib, hip and back pain. She is planning to pursue molecular profiling through the [facility]. She will receive IVIG today and continues on monthly pentamidine. ONCOLOGY HISTORY The patient is a 52-year-old female who was diagnosed with kappa light chain multiple myeloma in December 2014. 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 She presented with anemia, hypercalcemia, numerous lytic lesions with compression of lumbar 2 and renal failure. Her animal protein at diagnosis was 0.3 gm/dL. She is status one cycle of VTD, then switched to VRD and completed a total of five cycles of induction. She received mobilization with G-CSF and collected a total of 14.9 x 10 (6) CD34/kg and her single agent melphalan autotransplant on March 16, 2013. She achieved VGPR with residual bone marrow and monoclonal protein involvement. She was started on VRD maintenance and completed six cycles and achieved a complete remission by serum and urine markers. Bone marrow biopsy January 2014 was less than 1% monoclonal plasma cells. The patient was switched to Revlimid and continued on that treatment until March 2015, when she showed signs of progression. She had light chain elevation in December 2014, and her Revlimid dose was increased to 10 mg, having been decreased due to cytopenias before. In March 2015, she had further progression of her kappa light chain of 24, K/L ratio of 26. No monoclonal protein in her serum or urine. She underwent bone marrow biopsy which showed 5% monoclonal plasma cells. With confirmation of disease progression, she was initiated on carfilzomib, pomalidomide, and dexamethasone. After two cycles of treatment, she showed small decrease in the light chain and increased again and overall remained stable with nearly seven cycles of the treatment. She was seen at my clinic in [place] for a second opinion with recommendation to continue on the current therapy until she progressed. Her sister has been confirmed as a match for allo transplant, though she does not want to pursue this any further unless it becomes more of a necessity. With her disease progression, the patient started on CPD early April 2015 and after two cycles in June 2015, her re-staging was concerning as her light chains are elevated again. Her bone marrow at that time revealed 1% monoclonal plasma cells, MRD with 1984 cells/million. After three more cycles of CPD, her serum light chain has essentially been stable. In September 2015 she had complete re- staging which shows her PET scan with progressive disease as compared to December 2014. Her bone marrow was stable with 2% monoclonal plasma cells, so interestingly, her MRD is down to 451 cells per million. Her light chains remained stable until cycle 7 and the kappa light chains increased again. The patient was offered chemotherapy with DPACE, followed by auto transplant; however, she elected to start daratumumab. The patient finished the eight weekly doses of daratumumab and four of the bi-weekly doses, and she is due today, March 31, 2016, to start her fifth dose of daratumumab, as the patient moved from [place], [place], and she would like to establish her care here. Patient completed 15 cycles of daratumumab, Velcade and methylprednisolone. Patient was evaluated at the [facility] and received Velcade, dexamethasone, and venetoclax from February 2017 through May 2018. Underwent CAR T therapy on June 25, 2018. PAST MEDICAL HISTORY 1. Multiple myeloma. 2. Hypothyroidism. 3. GERD. PAST SURGICAL HISTORY 1. Kyphoplasty of the spine. 2. Back surgery with nerve ablation. FAMILY HISTORY Father had bladder cancer in his late 80s. SOCIAL HISTORY The patient is . She lives with her daughter. She is on disability because of multiple myeloma. She never smoked. She occasionally drank. She denies any abuse of illicit drugs. MEDICATIONS 1. Combipatch twice weekly. 2. Levothyroxine 150 mcg daily. 3. Omeprazole 20 mg daily. 4. Duloxetine 60 mg daily. 5. Acyclovir 400 mg b.i.d. 6. Hydrocodone-APAP 5-325 mg p.r.n. 7. Vit D3 5000 IU daily 8. Trazodone 50 mg q.h.s. 9. Voltaren 1% gel. ALLERGIES No known drug allergies REVIEW OF SYSTEMS A 12-point review of systems is performed and is negative except as stated above. PHYSICAL EXAMINATION VITAL SIGNS: Weight 82.7 kg, BP 127/82, P 112, R 16, temp 97.2, O2 saturation 94%. GENERAL: The patient is a well-developed, well-nourished female in no acute distress. HEAD: Normocephalic, atraumatic. EYES: Sclerae anicteric. MOUTH: Moist mucous membranes. NECK: Supple. No palpable adenopathy. CARDIOVASCULAR: Heart rate regular, 112 per minute, without murmur, S3 or S4. LUNGS: Clear bilaterally. EXTREMITIES: No edema. NEURO: Nonfocal. LABORATORY CBC, CMP, serum free light chain and SPEP are pending. IMPRESSION AND PLAN The patient is a 52-year-old female with multiple myeloma with kappa light chain relapse. She received six-line therapy with Velcade, venetoclax and dexamethasone, discontinued in May 2018. Received CAR T therapy on June 25, 2018. 1. Multiple myeloma. Unfortunately, per Dr. Montejo, CAR T therapy has failed. Her kappa light chains have doubled. These are pending today. Overall, she feels well. She will meet with Dr. Mcghee, who has been in contact with Dr. Montejo for next possible steps. 2. Bony pain. Increased rib, hip and back pain. She uses hydrocodone with good effect. 3. Infection prophylaxis. She will receive IVIG today. She is scheduled for inhaled pentamidine on September 04, 2018. She continues on acyclovir. 4. Followup with Dr. Mcghee on September 04, 2018 for continued care. [facility]
[2018-08-28 10:36] LABS: PLATELET COUNT, AUTOMATED 62 K/uL (150-450)
[2018-08-28 11:06] VITALS: BP 132/88
[2018-08-28 13:47] VITALS: BP 125/91
[2018-09-04 13:05] VITALS: BP 153/108
--- NOTE | 2018-09-05 06:18 | ONCOLOGY FOLLOW UP NOTE ---
EVENT DATE: September 04, 2018 CHIEF COMPLAINT/REASON FOR VISIT Ms. Johnson is a pleasant 52-year-old female with advanced multiple myeloma that has now become refractory to CAR T-cell therapy, her most recent line of therapy. Here for followup to discuss next steps in her care. ONCOLOGY HISTORY The patient is a 52-year-old female who was diagnosed with kappa light chain multiple myeloma in December 2014. 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 She presented with anemia, hypercalcemia, numerous lytic lesions with compression of lumbar 2 and renal failure. Her animal protein at diagnosis was 0.3 gm/dL. She is status one cycle of VTD, then switched to VRD and completed a total of five cycles of induction. She received mobilization with G-CSF and collected a total of 14.9 x 10 (6) CD34/kg and her single agent melphalan autotransplant on March 16, 2013. She achieved VGPR with residual bone marrow and monoclonal protein involvement. She was started on VRD maintenance and completed six cycles and achieved a complete remission by serum and urine markers. Bone marrow biopsy January 2014 was less than 1% monoclonal plasma cells. The patient was switched to Revlimid and continued on that treatment until March 2015, when she showed signs of progression. She had light chain elevation in December 2014, and her Revlimid dose was increased to 10 mg, having been decreased due to cytopenias before. In March 2015, she had further progression of her kappa light chain of 24, K/L ratio of 26. No monoclonal protein in her serum or urine. She underwent bone marrow biopsy which showed 5% monoclonal plasma cells. With confirmation of disease progression, she was initiated on carfilzomib, pomalidomide, and dexamethasone. After two cycles of treatment, she showed small decrease in the light chain and increased again and overall remained stable with nearly seven cycles of the treatment. She was seen at my clinic in [place] for a second opinion with recommendation to continue on the current therapy until she progressed. Her sister has been confirmed as a match for allo transplant, though she does not want to pursue this any further unless it becomes more of a necessity. With her disease progression, the patient started on CPD early April 2015 and after two cycles in June 2015, her re-staging was concerning as her light chains are elevated again. Her bone marrow at that time revealed 1% monoclonal plasma cells, MRD with 1984 cells/million. After three more cycles of CPD, her serum light chain has essentially been stable. In September 2015 she had complete re-staging which shows her PET scan with progressive disease as compared to December 2014. Her bone marrow was stable with 2% monoclonal plasma cells, so interestingly, her MRD is down to 451 cells per million. Her light chains remained stable until cycle 7 and the kappa light chains increased again. The patient was offered chemotherapy with DPACE, followed by auto transplant; however, she elected to start daratumumab. The patient finished the eight weekly doses of daratumumab and four of the bi-weekly doses, and she is due today, March 31, 2016, to start her fifth dose of daratumumab, as the patient moved from [place] to [place], [place], and she would like to establish her care here. Patient completed 15 cycles of daratumumab, Velcade and methylprednisolone. Patient has been evaluated at [facility] with recommendation of treatment Velcade weekly, dexamethasone 20 mg weekly, and venetoclax orally. Patient will start this treatment the beginning of February 2017. INTERVAL HISTORY Pat continues to feel quite well, but unfortunately, her free light chains are elevated significantly. They were approximately 1200 at [facility], and then we have rechecked them again and they continue to rise. She is relapsing, and we need to make next steps on what to do. We had an extensive discussion about her next therapy. She has received multiple therapies as outlined above, including Velcade, thalidomide, Revlimid, Kyprolis, pomalidomide, daratumumab, venetoclax, D-PACE, as well as CAR T-cell therapy and a single autologous stem cell transplant. We reached out to [facility], where she had her prior transplant, and there are plenty of cells available, over 11 million. She has not received elotuzumab before. She would be a candidate for a second autologous stem cell transplant, and we could also consider allogeneic stem cell transplant as well, as she has a matched sibling, by report. PAST MEDICAL HISTORY 1. Multiple myeloma. 2. Hypothyroidism. 3. GERD. PAST SURGICAL HISTORY 1. Kyphoplasty of the spine. 2. Back surgery with nerve ablation. SOCIAL HISTORY The patient is with one daughter. She is on disability because of multiple myeloma. She never smoked. She occasionally drank. Denies any abuse of illicit drugs. FAMILY HISTORY Father had bladder cancer in his late 80s. REVIEW OF SYSTEMS CONSTITUTIONAL: No fevers, chills, weight change. HEENT: No headache or vision changes. CARDIOVASCULAR: No chest pain, dyspnea on exertion, or edema. RESPIRATORY: No shortness of breath, wheezing, or cough. GASTROINTESTINAL: No nausea, vomiting, diarrhea, or constipation. GENITOURINARY: No dysuria or hematuria. MUSCULOSKELETAL: No weakness or joint pain. PSYCHIATRIC: No anxiety or depression. ENDOCRINE: No heat or cold intolerance. SKIN: No concerning rashes or lesions. NEUROLOGIC: No deficits or headache. The remainder of 14-point review of systems is otherwise negative. PHYSICAL EXAMINATION: VITAL SIGNS: Blood pressure 153/106, pulse 110, respiratory rate 16, temperature 98 Fahrenheit, oxygen saturation 91% on room air. Weight 83.8 kg. Pain 0/10. Fatigue is present; did not rate this. GENERAL: Stable condition, resting comfortably in the chair. HEENT: Normocephalic, atraumatic. EXTREMITIES: No clubbing, cyanosis, or edema. Full physical exam deferred today due to amount of time spent in counseling and coordination of care. IMPRESSION/REPORT/PLAN Ms. Johnson is a very pleasant 52-year-old female with the following: Relapsed multiple myeloma, having failed her most recent therapy with CAR T-cell therapy. We had an extensive discussion today about next steps. She has had testing done with Dr. Morgan at [facility], looking for targeted therapies, and I think we should repeat this. I will reach out to him to determine how best to do this. She believes it was a blood test. I also think we need to get a repeat bone marrow biopsy, and this is going to be arranged with Dr. Montejo in the coming weeks. I think this is important as well. She would like to get it done here, but we may need to get that done in [place] so we can get next-gen sequencing. I will discuss with Dr. Montejo. We could consider therapy with elotuzumab, pomalidomide, and dexamethasone prior to consideration of autologous stem cell transplant. We could also utilize VD-PACE as well, and she has had this before but feels she did not tolerate it extremely well. Again, this would be a bridge to therapy such as autologous stem cell transplant or allogeneic stem cell transplant. I would be in favor of doing a repeat autologous stem cell transplant before moving to an allo. She knows that she only had 15 months of remission with the prior auto, and she is discouraged by this, but I do believe this would be the most appropriate next step. Answered all of her many questions today. BILLING Total time 60 minutes, counseling time 45. Return visit, level 5. MTDD
--- NOTE | 2018-09-21 11:37 | NUR ---
SW and pt have been working together on getting the pt's co-pay assistance figured out for her next regimen. Today SW heard back from Dr. Mcghee that she is going to [facility] to get special testing done which will inform our decision on which regimen to try next. OTONIEL talked with pt today and she indicated she would get her appointment at [facility] scheduled soon.
[2018-10-03 09:20] VITALS: BP 125/107
[2018-10-03] MEDS: LIDOCAINE/SOD BICARB 8.4% SYR ID PRN (09:58)
[2018-10-03 10:19] VITALS: BP 108/83
[2018-10-03] MEDS: HEPARIN FLSH (PORT) 500 UN/5ML IVP PRN ×2 (12:58→13:02)
[2018-10-08 12:59] VITALS: BP 135/89
--- NOTE | 2018-10-09 11:05 | [facility] ONCOLOGY NOTE ---
EVENT DATE: October 08, 2018 CHIEF COMPLAINT/REASON FOR VISIT Ms. Johnson is a pleasant 52-year old female with advanced multiple myeloma now refractory to CAR T-cell therapy, her most recent line of therapy. Here to followup to discuss next steps after her repeat consultation at [facility]. ONCOLOGY HISTORY The patient is a 52-year-old female who was diagnosed with kappa light chain multiple myeloma in December 2014. 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 She presented with anemia, hypercalcemia, numerous lytic lesions with compression of lumbar 2 and renal failure. Her animal protein at diagnosis was 0.3 gm/dL. She is status one cycle of VTD, then switched to VRD and completed a total of five cycles of induction. She received mobilization with G-CSF and collected a total of 14.9 x 10 (6) CD34/kg and her single agent melphalan autotransplant on March 16, 2013. She achieved VGPR with residual bone marrow and monoclonal protein involvement. She was started on VRD maintenance and completed six cycles and achieved a complete remission by serum and urine markers. Bone marrow biopsy January 2014 was less than 1% monoclonal plasma cells. The patient was switched to Revlimid and continued on that treatment until March 2015, when she showed signs of progression. She had light chain elevation in December 2014, and her Revlimid dose was increased to 10 mg, having been decreased due to cytopenias before. In March 2015, she had further progression of her kappa light chain of 24, K/L ratio of 26. No monoclonal protein in her serum or urine. She underwent bone marrow biopsy which showed 5% monoclonal plasma cells. With confirmation of disease progression, she was initiated on carfilzomib, pomalidomide, and dexamethasone. After two cycles of treatment, she showed small decrease in the light chain and increased again and overall remained stable with nearly seven cycles of the treatment. She was seen at my clinic in [place] for a second opinion with recommendation to continue on the current therapy until she progressed. Her sister has been confirmed as a match for allo transplant, though she does not want to pursue this any further unless it becomes more of a necessity. With her disease progression, the patient started on CPD early April 2015 and after two cycles in June 2015, her re-staging was concerning as her light chains are elevated again. Her bone marrow at that time revealed 1% monoclonal plasma cells, MRD with 1984 cells/million. After three more cycles of CPD, her serum light chain has essentially been stable. In September 2015 she had complete re-staging which shows her PET scan with progressive disease as compared to December 2014. Her bone marrow was stable with 2% monoclonal plasma cells, so interestingly, her MRD is down to 451 cells per million. Her light chains remained stable until cycle 7 and the kappa light chains increased again. The patient was offered chemotherapy with DPACE, followed by auto transplant; however, she elected to start daratumumab. The patient finished the eight weekly doses of daratumumab and four of the bi-weekly doses, and she is due today, March 31, 2016, to start her fifth dose of daratumumab, as the patient moved from [place] to [place], [place], and she would like to establish her care here. Patient completed 15 cycles of daratumumab, Velcade and methylprednisolone. Patient has been evaluated at [facility] with recommendation of treatment Velcade weekly, dexamethasone 20 mg weekly, and venetoclax orally. She completed this therapy before evidence of relapse. She then moved forward with CAR T-cell therapy on clinical trial at [facility] and did well with this. She had initial response but, unfortunately, has now relapsed in the late winter of 2018. Discussion is ongoing to determine the next best of therapy but have elected to pursue Cytoxan, pomalidomide, dexamethasone. She has not yet had elotuzumab before. She had VD-PACE in the distant past and we could re-use that in the future as well. She would be a candidate for a second autologous stem cell transplant after control of her disease and we could also consider allogenic stem cell transplant at some point in the future as well if required. She has a matched sibling by report. INTERVAL HISTORY Pat continues to do well but her free light chains continue to rise significantly. We have labs from [facility] now that show even more marked elevation in September. She is noting much more fatigue and weakness and I believe she is becoming more symptomatic. They do have genetic testing including reportedly next-gen sequencing pending but we need to start therapy as soon as possible. I had discussed with her about starting elotuzumab, pomalidomide, dexamethasone but Dr. Morgan at [facility] recommended Cytoxan, pomalidomide and dexamethasone due to the need to have speed to get her disease under control. This is a very reasonable recommendation and we could use an elotuzumab-based therapy in the future. PAST MEDICAL HISTORY 1. Multiple myeloma. 2. Hypothyroidism. 3. GERD. PAST SURGICAL HISTORY 1. Kyphoplasty of the spine. 2. Back surgery with nerve ablation. SOCIAL HISTORY The patient is with one daughter. She is on disability because of multiple myeloma. She never smoked. She occasionally drank. Denies any abuse of illicit drugs. FAMILY HISTORY Father had bladder cancer in his late 80s. REVIEW OF SYSTEMS CONSTITUTIONAL: No fevers, chills, weight change. Positive fatigue. HEENT: No headache or vision changes. CARDIOVASCULAR: No chest pain, dyspnea on exertion, or edema. RESPIRATORY: No shortness of breath, wheezing, or cough. GASTROINTESTINAL: No nausea, vomiting, diarrhea, or constipation. GENITOURINARY: No dysuria or hematuria. MUSCULOSKELETAL: No weakness or joint pain. PSYCHIATRIC: No anxiety or depression. ENDOCRINE: No heat or cold intolerance. SKIN: No concerning rashes or lesions. NEUROLOGIC: No deficits or headache. The remainder of 14-point review of systems is otherwise negative. PHYSICAL EXAMINATION: VITAL SIGNS: Blood pressure 135/89, pulse 101, respiratory rate 16, temperature 97.8 Fahrenheit, oxygen saturation 94% on room air. Weight 85.1 kg. Pain 3/10. Fatigue 3/10. GENERAL: Stable condition, resting comfortably in the chair. HEENT: Normocephalic, atraumatic. ECOG PERFORMANCE STATUS: 1. CARDIOVASCULAR: Regular rate and rhythm. LUNGS: Clear. ABDOMEN: Soft, nontender, nondistended. No organomegaly. EXTREMITIES: No clubbing, cyanosis, or edema. SKIN: No concerning rashes. Remainder of physical exam otherwise unremarkable. IMPRESSION/REPORT/PLAN Ms. Johnson is a very pleasant 52-year-old female with relapsed multiple myeloma with her most recent therapy being CAR T-cell therapy. After discussion, she would like to move forward with Cytoxan, pomalidomide, dexamethasone, which I believe is a very appropriate regimen. We could utilize an elotuzumab-based therapy in the future if necessary. We could also utilize a second autologous stem cell transplant after completion of this therapy if she would like. I agree with Dr. Morgan that we could do after three cycles. However, she has many plans during that time at the beginning of summer so we may end up treating her with this oral therapy for four to six cycles before moving forward with transplant. I answered all of her many questions today. BILLING Return visit level 4. Total time 30 minutes, counseling time 20. MTDD
--- NOTE | 2018-10-11 10:20 | NUR ---
OTONIEL spoke with [employer] and reinitiated a new application for co-pay assistance. The program selected the pt for audit and requested income information. The pt brought the income documents in and SW faxed them to [employer]. OTONIEL will follow up with [employer] tomorrow to ensure documents were received, will get all applicaable information and fax it to the pharmacy filling the medication.
--- NOTE | 2018-10-13 09:12 | ONCOLOGY CHEMO TEACHING ---
EVENT DATE: October 12, 2018 CHIEF COMPLAINT/REASON FOR VISIT Ms. Johnson is a pleasant 52-year old woman with advanced multiple myeloma now refractory to CAR T-cell therapy, her most recent line of therapy. She has been seen at [facility]. We are going to be initiating her on Cytoxan, pomalidomide and dexamethasone. She is here today for a chemotherapy teaching session. HISTORY OF PRESENT ILLNESS Pat continues to do well but her free light chains continue to rise significantly. We have labs from [facility] now that show even more marked elevation in September. She has recently been noticing more fatigue and weakness and would believe that she is becoming more symptomatic. They do have genetic testing including reportedly NextGen sequencing pending but we do need to start therapy as soon as possible. She discussed this with Dr. Mcghee recently, and they discussed elotuzumab, pomalidomide, dexamethasone. Dr. Morgan at [facility] recommended Cytoxan, pomalidomide and dexamethasone due to the need to have speed in order to get her disease under control and she may then have transplant. The patient is seen today for chemotherapy teaching. A total of 60 minutes was spent with him, 100% of which was [id number] counseling. ONCOLOGY HISTORY The patient is a 52-year-old female who was diagnosed with kappa light chain multiple myeloma in December 2014. 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 She presented with anemia, hypercalcemia, numerous lytic lesions with compression of lumbar 2 and renal failure. Her animal protein at diagnosis was 0.3 gm/dL. She is status one cycle of VTD, then switched to VRD and completed a total of five cycles of induction. She received mobilization with G-CSF and collected a total of 14.9 x 10 (6) CD34/kg and her single agent melphalan autotransplant on March 16, 2013. She achieved VGPR with residual bone marrow and monoclonal protein involvement. She was started on VRD maintenance and completed six cycles and achieved a complete remission by serum and urine markers. Bone marrow biopsy January 2014 was less than 1% monoclonal plasma cells. The patient was switched to Revlimid and continued on that treatment until March 2015, when she showed signs of progression. She had light chain elevation in December 2014, and her Revlimid dose was increased to 10 mg, having been decreased due to cytopenias before. In March 2015, she had further progression of her kappa light chain of 24, K/L ratio of 26. No monoclonal protein in her serum or urine. She underwent bone marrow biopsy which showed 5% monoclonal plasma cells. With confirmation of disease progression, she was initiated on carfilzomib, pomalidomide, and dexamethasone. After two cycles of treatment, she showed small decrease in the light chain and increased again and overall remained stable with nearly seven cycles of the treatment. She was seen at [facility] in [place] for a second opinion with recommendation to continue on the current therapy until she progressed. Her sister has been confirmed as a match for allo transplant, though she does not want to pursue this any further unless it becomes more of a necessity. With her disease progression, the patient started on CPD early April 2015 and after two cycles in June 2015, her re-staging was concerning as her light chains are elevated again. Her bone marrow at that time revealed 1% monoclonal plasma cells, MRD with 1984 cells/million. After three more cycles of CPD, her serum light chain has essentially been stable. In September 2015 she had complete re-staging which shows her PET scan with progressive disease as compared to December 2014. Her bone marrow was stable with 2% monoclonal plasma cells, so interestingly, her MRD is down to 451 cells per million. Her light chains remained stable until cycle 7 and the kappa light chains increased again. The patient was offered chemotherapy with DPACE, followed by auto transplant; however, she elected to start daratumumab. The patient finished the eight weekly doses of daratumumab and four of the bi-weekly doses, and she is due today, March 31, 2016, to start her fifth dose of daratumumab, as the patient moved from [place] to [place], [place], and she would like to establish her care here. Patient completed 15 cycles of daratumumab, Velcade and methylprednisolone. Patient has been evaluated at [facility] with recommendation of treatment Velcade weekly, dexamethasone 20 mg weekly, and venetoclax orally. She completed this therapy before evidence of relapse. She then moved forward with CAR T-cell therapy on clinical trial at [facility] and did well with this. She had initial response but, unfortunately, has now relapsed in the late winter of 2018. Discussion is ongoing to determine the next best of therapy but have elected to pursue Cytoxan, pomalidomide, dexamethasone. She has not yet had elotuzumab before. She had VD-PACE in the distant past and we could re-use that in the future as well. She would be a candidate for a second autologous stem cell transplant after control of her disease and we could also consider allogenic stem cell transplant at some point in the future as well if required. She has a matched sibling by report. PAST MEDICAL HISTORY 1. Multiple myeloma. 2. Hypothyroidism. 3. GERD. PAST SURGICAL HISTORY 1. Kyphoplasty of the spine. 2. Back surgery with nerve ablation. SOCIAL HISTORY The patient is with one daughter. She is on disability because of multiple myeloma. She never smoked. She occasionally drank. Denies any abuse of illicit drugs. FAMILY HISTORY Father had bladder cancer in his late 80s. ALLERGIES No known drug allergies. DISCUSSION 1. A total of 60 minutes was spent in counseling today, 100% of which was face to face. At today's chemotherapy teaching session we discussed her diagnosis as well as the planned chemotherapy regimen and toxicities associated with Cytoxan, pomalidomide and dexamethasone orally on a 28-day cycle. Cytoxan will be given one day weekly 500 mg with dexamethasone 60 mg one day every week on a 28-day cycle. Pomalidomide 4 mg will be taken daily on days 1 through 21 of a 28-day cycle. Handouts of each drug were provided and reviewed in detail. 2. Side effects and toxicities of chemotherapy agents included, but were not limited to: A. Bone marrow suppression, specifically neutropenia. She is instructed to contact our offices with any signs of infection. CBC will be monitored routinely. We discussed common sense approaches including routine hand washing and avoidance of crowds/sick people if neutropenic. B. GI side effects. Discussed the possibility of nausea, vomiting, diarrhea and constipation. She will receive IV antiemetics and will be prescribed antiemetics for home use. If she were to have diarrhea, recommended Imodium. If she were to have constipation, recommended Senna-S or Miralax routinely. Further interventions will be made based on side effects. C. side effects. Discussed the importance of adequate hydration (minimum 8 cups of fluid per day) and emptying the bladder on a regular basis. IV hydration can be scheduled as needed. D. Mouth sores. Recommended salt water or baking soda gargles as needed. E. Skin toxicity. Discussed that chemotherapy was very drying to the skin and mucous membranes. Recommended routine moisturizing as well as sun protection. F. Neurotoxicity. Discussed symptoms of peripheral neuropathy. She will be monitored of these symptoms and will notify us if progressive. G. Alopecia. Discussed that hair thinning is a common side effect, although alopecia can also occur. H. Fatigue. Discussed that this is one of the most common complaints of patients undergoing chemotherapy. I have encouraged her to remain as active as possible, taking frequent rests as needed. I. Infusion reaction. Reviewed IV premedications. She will be monitored closely during infusions. J. Reproductive Health: Discussed importance of preventing while on chemotherapy. Discussed control options and fertility preservation. Also, to abstain from sexual intercourse for 2-3 days after chemotherapy administration. 3. I have instructed the patient to call our office if she is prescribed any new medications. It is recommended that multiple supplements or herbal medications may not be taken as these may interfere with the action of the chemotherapy. 4. Discussed dietary issues associated with chemotherapy including anorexia and changes in taste. A handout of nutrition information is given. 5. Office contact information ([phone]) is given. I have encouraged the patient to call with any issues regarding treatment. 6. A tour of the infusion room is given. She is given a packet of information including all of the above. 7. Patient spoke with her specialty pharmacy yesterday. They are anticipating delivery of all of her medications tomorrow, on Monday. That includes the dexamethasone. There is supposed to be some potential bad weather starting today so this potentially could be delayed until Monday. We did discuss though if patient does receive her medications over the weekend she will start them on Monday, October 15, in order to better gauge consistency as the pomalidomide will only be taken on days 1 through 21. She verbalized complete understanding and has a good sense of understanding. 8. Patient already has some neuropathy most noticeable in the balls of her feet bilaterally. These tend to feel somewhat numb. She has only very mild and only rare sensations of numbness in her fingertips, which is very intermittent. She is aware that peripheral neuropathy can occur on this treatment and she will alert us if this worsens. 9. We discussed particulars related to all medications. Also discussed the chance for peripheral edema with pomalidomide. 10. Patient will continue with daily PPI prophylaxis with omeprazole. She is going to try taking her dexamethasone in the morning with some food and will also take Cytoxan early in the morning. She will take pomalidomide in the evenings. 11. Patient does report a history of insomnia and has some trazodone at home to use as needed. She has not used this in a while but tells me that she does recall having significant insomnia related to dexamethasone and she will use this if needed. Again, we are going to try to offset insomnia as much as possible and have her take the dexamethasone early in the morning as she used to take this at night at bedtime. 12. Patient will return to clinic in one week after starting treatment for routine labs with CBC and CMP and will also see me for followup. 13. She is scheduled to followup with Dr. Mcghee monthly and is already scheduled for that visit. We will draw myeloma labs monthly at that visit. GRETCHEN
--- NOTE | 2018-10-17 15:14 | NUR ---
SW learned patient was approved for assistance. SW faxed in requested dx verification form. Will likely get a confirmation on full approval status tomorrow.
[~2018-10-22 10:28] MED LIST changes: +ACETAMINOPHEN 325 MG TAB PO ONE; +ACETAMINOPHEN 325 MG TAB PO PRN; +ALTEPLASE RECOMB 2 MG VIAL IVP PRN; -AZIT-1 PO; +DEXTROSE 5%(*) 100 ML BAG 100 ML IVPB PRN; +IMMU GLOB(IGG) 20GR/200ML VIAL 20 GR, IMMU GLOB(IGG) 10GR/100ML VIAL 10 GR in EMPTY EVA... IVPB ONE; +NS(*) 0.9% 100 ML BAG 100 ML IVPB PRN; +NS(*) 0.9% 500 ML BAG 500 ML IV PRN; +PENTAMIDINE 300 MG INH ONE; +WATER FOR INJ,STERILE 20 ML IVP PRN; +[UNRECOGNIZED DRUG - MIXTURE] IV ONE; +[UNRECOGNIZED DRUG - OTHER] IV ONE; +diphenhydrAMINE 25 MG CAP PO ONE; +diphenhydrAMINE 50 MG/ML VIAL IVP PRN; +methylPREDNIS SUCC 125 MG/2ML IVP ONE
[2018-10-22 10:44] VITALS: BP 103/69
[2018-10-22 10:50] LABS: PLATELET COUNT, AUTOMATED 65 K/uL (150-450)
[2018-10-22] MEDS ORDERED: AZIT-1 PO (11:38)
--- NOTE | 2018-10-23 06:01 | ONCOLOGY FOLLOW UP NOTE ---
EVENT DATE: October 22, 2018 CHIEF COMPLAINT/REASON FOR VISIT Ms. Johnson is a pleasant 52-year old woman with advanced multiple myeloma now refractory to CAR T-cell therapy, her most recent line of therapy. She has been seen at [facility]. She initiated oral Cytoxan, pomalidomide, and dexamethasone on 10/15/18. I saw her last week for chemo teach. Today is day 8. She was in for weekly repeat labs and reported that she began to have some URI-type symptoms 48 hours ago. She believes that she was coughing so much that she tells me that she cracked a rib. She has not been seen in any urgent care or ER, and tells me she is going strictly on pain. HISTORY OF PRESENT ILLNESS Pat continues to do well, but her free light chains continue to rise significantly. We have labs from [facility] now that show even more marked elevation in September. She has recently been noticing more fatigue and weakness and would believe that she is becoming more symptomatic. They do have genetic testing including reportedly NextGen sequencing pending, but we do need to start therapy as soon as possible. She discussed this with Dr. Mcghee recently, and they discussed elotuzumab, pomalidomide, dexamethasone. Dr. Morgan at [facility] recommended Cytoxan, pomalidomide and dexamethasone due to the need to have speed in order to get her disease under control, and she may then have transplant. She initiated therapy on 10/15/18. Today is day 8 of Cycle #1. She has been tolerating treatment well thus far, though does report some URI-type symptoms which began 48 hours ago. Symptoms consist of nasal drainage, somewhat sore throat with productive cough, green- to yellow-colored sputum, and hemoptysis production, as well as some pleuritic-type chest pain. She tells me that the chest pain is mostly noted to the left anterior rib cage, and she believes that this is due to having such forceful coughing over the weekend. She thinks that she cracked a rib as a result. She has been using [id number]-[id number] measures with Mucinex as well as Tylenol Cold and Cough. She tells me that she believes that she had a low-grade fever over the weekend, about 99 degrees, but did not check her temperature. Lastly, due to the pain in her left side, she tells me that she started using her hydrocodone 5/325 mg tablets, which she had from prior prescription and had not used since May, and has now been using one tablet twice a day. She is also using cyclobenzaprine, one tablet twice a day, when she takes Gibson. She tells me that in taking the hydrocodone just over the last couple weeks, she has noticed some constipation. She is accompanied to the office by her daughter. ONCOLOGY HISTORY The patient is a 52-year-old female who was diagnosed with kappa light chain multiple myeloma in December 2014. 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 She presented with anemia, hypercalcemia, numerous lytic lesions with compression of lumbar 2 and renal failure. Her animal protein at diagnosis was 0.3 gm/dL. She is status one cycle of VTD, then switched to VRD and completed a total of five cycles of induction. She received mobilization with G-CSF and collected a total of 14.9 x 10 (6) CD34/kg and her single agent melphalan autotransplant on March 16, 2013. She achieved VGPR with residual bone marrow and monoclonal protein involvement. She was started on VRD maintenance and completed six cycles and achieved a complete remission by serum and urine markers. Bone marrow biopsy January 2014 was less than 1% monoclonal plasma cells. The patient was switched to Revlimid and continued on that treatment until March 2015, when she showed signs of progression. She had light chain elevation in December 2014, and her Revlimid dose was increased to 10 mg, having been decreased due to cytopenias before. In March 2015, she had further progression of her kappa light chain of 24, K/L ratio of 26. No monoclonal protein in her serum or urine. She underwent bone marrow biopsy which showed 5% monoclonal plasma cells. With confirmation of disease progression, she was initiated on carfilzomib, pomalidomide, and dexamethasone. After two cycles of treatment, she showed small decrease in the light chain and increased again and overall remained stable with nearly seven cycles of the treatment. She was seen at my clinic in [place] for a second opinion with recommendation to continue on the current therapy until she progressed. Her sister has been confirmed as a match for allo transplant, though she does not want to pursue this any further unless it becomes more of a necessity. With her disease progression, the patient started on CPD early April 2015 and after two cycles in June 2015, her re-staging was concerning as her light chains are elevated again. Her bone marrow at that time revealed 1% monoclonal plasma cells, MRD with 1984 cells/million. After three more cycles of CPD, her serum light chain has essentially been stable. In September 2015 she had complete re-staging, which shows her PET scan with progressive disease as compared to December 2014. Her bone marrow was stable with 2% monoclonal plasma cells, so interestingly, her MRD is down to 451 cells per million. Her light chains remained stable until cycle 7 and the kappa light chains increased again. The patient was offered chemotherapy with DPACE, followed by auto transplant; however, she elected to start daratumumab. The patient finished the eight weekly doses of daratumumab and four of the bi-weekly doses, and she is due today, March 31, 2016, to start her fifth dose of daratumumab, as the patient moved from [place] to [place], [place], and she would like to establish her care here. Patient completed 15 cycles of daratumumab, Velcade and methylprednisolone. Patient has been evaluated at [facility] with recommendation of treatment Velcade weekly, dexamethasone 20 mg weekly, and venetoclax orally. She completed this therapy before evidence of relapse. She then moved forward with CAR T-cell therapy on clinical trial at [facility] and did well with this. She had initial response but, unfortunately, has now relapsed in the late winter of 2018. Discussion is ongoing to determine the next best of therapy but have elected to pursue Cytoxan, pomalidomide, dexamethasone. She has not yet had elotuzumab before. She had VD-PACE in the distant past and we could re-use that in the future as well. She would be a candidate for a second autologous stem cell transplant after control of her disease and we could also consider allogenic stem cell transplant at some point in the future as well if required. She has a matched sibling by report. PAST MEDICAL HISTORY 1. Multiple myeloma. 2. Hypothyroidism. 3. GERD. PAST SURGICAL HISTORY 1. Kyphoplasty of the spine. 2. Back surgery with nerve ablation. SOCIAL HISTORY The patient is with one daughter. She is on disability because of multiple myeloma. She never smoked. She occasionally drank. Denies any abuse of illicit drugs. FAMILY HISTORY Father had bladder cancer in his late 80s. ALLERGIES No known drug allergies. REVIEW OF SYSTEMS CONSTITUTIONAL: Patient reports that she had an episode of chills over the weekend, and believes this is when she had a low-grade temperature. She believes her temperature is 99, but did not check this. She is reporting some upper respiratory-type symptoms. Otherwise, no other changes. HEENT: No vision changes. No tinnitus or hearing problems. She has had increased nasal congestion and drainage as well as sputum production with a cough over the last couple of days. She denies any mouth sores. RESPIRATORY: She has had a productive cough with green to yellow sputum over the last couple of days. No shortness of breath. She does have some difficulty taking deep breaths related to left anterior rib pain. CARDIOVASCULAR: No chest pain, syncope or presyncope. GASTROINTESTINAL: No abdominal pain. No nausea or vomiting or diarrhea. She has noted some constipation over the last couple of days, but attributes this to recently starting hydrocodone for pain. She is going to start using stool softeners today. No bright red blood per rectum or melena. Appetite has been stable. No GERD. She is drinking a lot of fluids. GENITOURINARY: No hematuria or dysuria. No genitourinary discharge. MUSCULOSKELETAL: Patient has some focal pain noted to the left anterior rib cage, just underneath the breast. It is not specifically tender to touch, but she tells me that taking a deep breath elicits pain. Moving and bending all can elicit pain. Hydrocodone and Flexeril are helping alleviate this. NEURO: She denies any headache or seizure-like activity. No numbness or tingling in the hands or feet. HEME/LYMPH: No free bleeding or easy bruising. DERM: She denies any rash. No suspicious lumps or bumps. PSYCH: She denies any severe anxiety, severe depression, suicidal or homicidal ideation. ENDOCRINE: She denies any heat or cold intolerance. PHYSICAL EXAMINATION: VITAL SIGNS: Weight not checked today. Temperature 98.3, P 118, R 16, BP 103/69, oxygen saturation 88% on room air. This will be rechecked prior to discharge today. GENERAL: In general, this is a pleasant 52-year-old woman who appears to be well hydrated, well nourished, and is in no acute distress. She does sound like she has increased nasal congestion today. HEAD: Atraumatic, normocephalic. EYES: Sclerae anicteric. ENT/MOUTH: Moist mucous membranes. No signs of thrush or mucositis. She does have notable nasal congestion and clear rhinorrhea noted to the bilateral turbinates. Posterior pharynx is only minimally erythematous, with no suspicious plaques or exudates. NECK: Supple. No lymphadenopathy. No JVD. LUNGS: Clear breath sounds to auscultation bilaterally. No wheezes, rales or rhonchi. Chest expansion is symmetrical, though deep inspiration does elicit pain to the left anterior side. CARDIAC: Somewhat tachycardic but regular rhythm. No murmurs. ABDOMEN: Cursory examination does not reveal any abnormalities. Abdomen soft, nontender, and nondistended. Bowel sounds positive x4. EXTREMITIES: No edema. No clubbing or cyanosis. LYMPH: No palpable abnormal lymphadenopathy. NEURO: Patient is awake, alert, oriented x3. No focal motor or sensory deficits. PSYCH: Mood and affect appear appropriate today. DERM: No rash, bruises or purpuric eruption. LABORATORY CBC today: WBC 1.9, ANC 1.3, hemoglobin 9.7, hematocrit 28.8%, platelets 65,000. CMP today: Unremarkable with the exception of a minimally low sodium at 136, and minimally high BUN at 23 with normal serum creatinine of 1.0. IMPRESSION AND PLAN Ms. Johnson is a very pleasant 52-year-old female with relapsed multiple myeloma with her most recent therapy being CAR T-cell therapy. After discussion, she would like to move forward with Cytoxan, pomalidomide, dexamethasone, which I believe is a very appropriate regimen. We could utilize an elotuzumab-based therapy in the future if necessary. We could also utilize a second autologous stem cell transplant after completion of this therapy if she would like. We agree with Dr. Morgan that we could do it after three cycles. She does have some plans at the beginning of the summer, so we may end up treating her with this oral therapy for a total of four to six cycles before moving forward with transplant. She is into day 8 of her first cycle. She has been tolerating treatment well. She does have some URI-type symptoms today, but is afebrile. She does have a grade 2 neutropenia today, but again is afebrile, nontoxic-appearing. I do think she has perhaps a viral upper respiratory infection. 1. Advanced multiple myeloma: Patient has recently initiated oral Cytoxan, pomalidomide, and dexamethasone. Today is day 8 of Cycle #1. She is well versed in how to take her oral medications and will continue on this regimen. We reviewed her lab results today. She is aware of neutropenic precautions and is aware that she is neutropenic today, grade 2, and will utilize good hand- washing skills. 2. Upper respiratory infection: Patient began to have some symptoms over the weekend. This may certainly be viral; however, given her decreased neutrophils and her overall disease, I am going to start her on a Z-Francisco x1 to see if this will help speed up the recovery process. She was encouraged to continue to eat well and drink plenty of fluids. She was given instructions on how to take Z- Francisco. She will continue to use Mucinex, and I also suggested plain Robitussin DM or guaifenesin syrup over the counter for her sore throat. Throat exam was unremarkable today. 3. Neutropenia precautions. She is aware that she needs to notify us for any fever of 100.5 degrees Fahrenheit or greater. 4. Left rib pain. Patient believes that she cracked a rib with coughing episodes. She is going to utilize some [id number] measures for her cough, and in the interim, I have ordered plain films to evaluate the left anterior rib cage area beneath the breastbone. I will likely have results tomorrow and can notify her then. For now, she is to continue to utilize her hydrocodone and Flexeril for pain. She will let us know if this worsens. 5. Patient will return to clinic as scheduled for her next followup and ongoing labs. She verbalized understanding. GRETCHEN
--- NOTE | 2018-10-23 09:14 | NUR ---
Pt was approved for PAF assistance to be applied to her [employer] account after LLS runs out. Approved: 10/11/18 - 10/12/2019 ID: [id number] GRP: [id number] PCN: [id number] BIN: [id number]
--- NOTE | 2018-10-23 14:21 | Oncology Note ---
I called patient this morning to review her xray results from xray done yesterday. No new fractures seen. There was mention of numerous bilateral rib fractures as well as an old thoracic fracture. She's feeling a little better today in regards to her URI symptoms. She hasn't taken any pain medication yet today. We discussed her utilizing her hydrocodone and flexeril, and she'll alert us if this worsens. She knows to call us for any temperature of 100.5F or higher. She has a scheduled follow-up with her MO next week. JUAN F Munoz APRN,[employer] ARCHITECT Oct 23, 2018 14:21
[2018-10-25] MEDS ORDERED: LEVO150T72 PO (16:44)
== END 2018-10-28 ==
LOC: SPU 10:28
PROVIDERS: ATTEND Internal Medicine
DX: C90.02 Multiple myeloma in relapse (principal); G62.9 Polyneuropathy, unspecified; J06.9 Acute upper respiratory infection, unspecified; R07.81 Pleurodynia
CPT/HCPCS: 36415; 71046; 82232; 82784; 83615; 83735; 83883; 84165; 84550; 85025; 86334; 96365; 96366; A9270; G0463; J1459; J1642; J2545; J2997; J7040; J7050; Q0163; 82040; 82247; 82310; 82374; 82435; 82565; 82947; 84075; 84132; 84155; 84295; 84450; 84460; 84520; 94642; 99212

== ENCOUNTER → 2018-10-22 | Outpatient (CLI) | payer MEDICARE, BC ==
[~2018-10-22] MED LIST changes: -ALTEPLASE RECOMB 2 MG VIAL IVP PRN; +AZIT-1 PO; +CYCL50CA PO; -DEXTROSE 5%(*) 100 ML BAG 100 ML IVPB PRN; -INFLUENZA VIRUS VAC 0.5ML SYR IM ONLY ONE; -NS(*) 0.9% 100 ML BAG 100 ML IVPB PRN; -NS(*) 0.9% 500 ML BAG 500 ML IV PRN; +POMA4CAP PO; +PROG200C16 PO; -WATER FOR INJ,STERILE 20 ML IVP PRN
--- NOTE | 2018-10-22 14:08 | RADIOLOGY IMAGING REPORT ---
FACILITY: [facility] PATIENT NAME: Padma Johnson : 1965 MR: [id number] V: [id number] EXAM DATE: ORDERING PHYSICIAN: JUAN F DE LA TORRE TECHNOLOGIST: Location: Patient: Padma Johnson : 1965 Visit/Account:[id number] Date of Sevice: 10/22/2018 Exam type: CHEST PA LAT History: Chest pain with cough Comparison: None. Findings: There is a right-sided implanted port with the distal tip projecting over the superior vena cava. Th ere is mild central peribronchial thickening. There is very mild linear stranding in the medial left lung base. No lobar infiltrates are seen. There is no evidence of pleural effusions. Cardiac silh ouette is normal in size. There are multiple old bilateral rib fractures and several mild lower thor acic compression fractures. Vertebroplasty changes also noted in the upper lumbar spine. IMPRESSION: 1. Very mild linear stranding in the medial left lung base which may represent scarring versus atele ctasis There is mild central peribronchial thickening which could be related to an acute peribronchial infla mmatory process Report Dictated By: Portia Santoro MD at 10/22/2018 2:01 PM Report E-Signed By: Portia Santoro MD at 10/22/2018 2:03 PM WSN:[email or web address]
== END ==
LOC: RAD 11:56
PROVIDERS: ATTEND Nurse Practitioner
DX: C90.00 Multiple myeloma not having achieved remission (principal)
CPT/HCPCS: 71046

== ENCOUNTER → 2018-10-24 | Outpatient (CLI) | payer MEDICARE, BC ==
[~2018-10-24] MED LIST changes: -ACETAMINOPHEN 325 MG TAB PO ONE; -ACETAMINOPHEN 325 MG TAB PO PRN; -ALTEPLASE RECOMB 2 MG VIAL IVP PRN; +AZIT-1 PO; -DEXTROSE 5%(*) 100 ML BAG 100 ML IVPB PRN; -IMMU GLOB(IGG) 20GR/200ML VIAL 20 GR, IMMU GLOB(IGG) 10GR/100ML VIAL 10 GR in EMPTY EVA... IVPB ONE; -NS(*) 0.9% 100 ML BAG 100 ML IVPB PRN; -NS(*) 0.9% 500 ML BAG 500 ML IV PRN; -PENTAMIDINE 300 MG INH ONE; -WATER FOR INJ,STERILE 20 ML IVP PRN; -[UNRECOGNIZED DRUG - MIXTURE] IV ONE; -[UNRECOGNIZED DRUG - OTHER] IV ONE; -diphenhydrAMINE 25 MG CAP PO ONE; -diphenhydrAMINE 50 MG/ML VIAL IVP PRN; -methylPREDNIS SUCC 125 MG/2ML IVP ONE
--- NOTE | 2018-10-24 14:04 | RADIOLOGY IMAGING REPORT ---
FACILITY: [facility] PATIENT NAME: Padma Johnson : 1965 MR: [id number] V: [id number] EXAM DATE: ORDERING PHYSICIAN: OTF PINEDA TECHNOLOGIST: [place] [facility] [place] : 1965 Visit/Account:[id number] Date of Sevice: 10/24/2018 [facility] [place] HISTORY: irregular vaginal bleeding TECHNIQUE: Transvaginal ultrasound pelvis. COMPARISON: None. FINDINGS: Uterus: Retroverted; 7.3 cm length x 4.8 cm AP x 6.2 cm transverse. Myometrium: There multiple uterine fibroids. There is a 2 cm intramural fibroid along the superior a spect of the fundus. There is a 1.1 cm intramural fibroid along the right-sided the lower uterine se gment. There is a 2.2 cm intramural fibroid along the posterior left side of the uterine body and a serosal fibroid containing calcifications measuring 1.8 cm in diameter along the superior aspect of t he uterine fundus. Endometrium: Endometrium is thickened and echogenic; double thickness 13.8 mm. Cervix: Nabothian cysts. Ovaries: Right - 3.2 x 2.3 x 2.7 cm. Within the right ovary there is a well-circumscribed 1.3 x 1.9 x 2. 5 cm mass with internal calcifications of uncertain etiology. Left - 2 x 1.5 x 1.9 cm and appears atrophic Blood flow is documented in each ovary by duplex Doppler ultrasound. Adnexa: Grossly unremarkable. Free pelvic fluid: None. IMPRESSION: There multiple uterine fibroids as described above largest measuring 2.2 cm in diameter There is a 2.5 cm hypoechoic mass with calcifications in the right ovary of uncertain etiology. Shor t-term interval follow-up recommended Report Dictated By: Portia Santoro MD at 10/24/2018 1:53 PM Report E-Signed By: Portia Santoro MD at 10/24/2018 2:00 PM WSN:[id number]
== END ==
LOC: RAD 10:56
PROVIDERS: ATTEND Obstetrics & Gynecology
DX: D25.9 Leiomyoma of uterus, unspecified (principal)

== ENCOUNTER 2019-01-09 20:17 | Emergency (ER) | payer MEDICARE, BC ==
[~2019-01-09 20:17] MED LIST changes: -OMEP-125 PO; +OMEP-126 PO; -TRAZ50TA34 PO; +TRAZ50TA52 PO
[2019-01-09 21:02] LABS: PLATELET COUNT, AUTOMATED 95 K/uL (150-450)
--- NOTE | 2019-01-09 21:11 | ER Report ---
History and Physical Time Seen By MD: 20:15 Hx. of Stated Complaint: REPORTS FEVER TODAY, DIARRHEA, AND HEADACHE HPI/ROS CHIEF COMPLAINT: Fever, possibly neutropenic, diarrhea HISTORY OF PRESENT ILLNESS: 53-year-old female with multiple myeloma last chemotherapy 10 days ago, has had sinus drainage since this time. Today she developed fever and loose stools. Stools are watery, not bloody or black. She denies abdominal pain. She denies recent travel. She denies shortness breath or chest pain. She denies nausea or vomiting. She denies UTI symptoms. She has no rashes. She has had no recent antibiotics. She has no known sick contacts. REVIEW OF SYSTEMS: Constitutional: fever - tmax 100.5 at home Eyes: No discharge. ENT: No sore throat. clear nasal drainage, no sinus congestion Cardiovascular: No chest pain, no palpitations. Respiratory: No cough, no shortness of breath. Gastrointestinal: No abdominal pain, no vomiting. Diarrhea as above - 4-5 loose stools today Genitourinary: No hematuria. Musculoskeletal: No back pain. Skin: No rashes. Neurological: No headache. Remainder of the 14 system rev: Yes Allergies: Coded Allergies: No Known Drug Allergies (Unverified , 02/01/17) Home Meds Active Scripts Azithromycin (ZITHROMAX) 250 Mg Tablet, 1 TAB PO QDAY for 7 Days, #7 TAB Prov:KELLE ARROYO MD 01/09/19 Amoxicillin/Pot Clav 875-125 Mg Tab (AUGMENTIN 875-125 TABLET) 1 Each Tablet, 1 TAB PO Q12H for 7 Days, #14 TAB Prov:KELLE ARROYO MD 01/09/19 Omeprazole (OMEPRAZOLE) 20 Mg Tablet., 20 MG PO QDAY for 90 Days, #90 TAB 3 Refills Prov:OTF PINEDA MD 12/20/18 Duloxetine HCl (Duloxetine HCl) 60 Mg Capsule., 1 TAB PO DAILY for 90 Days, #90 TAB 3 Refills Prov:OTF PINEDA MD 12/20/18 Levothyroxine Sodium (SYNTHROID) 150 Mcg Tablet, 150 MCG PO QDAY for 90 Days, #90 TAB 0 Refills Prov:OTF PINEDA MD 10/25/18 Azithromycin (ZITHROMAX) 250 Mg Tablet, 2 TAB PO ONCE for 5 Days, #6 TAB 0 Refills take 1 pack as directed until completed Prov:JUAN F DE LA TORRE APRN,CHAIN TESTING MACHINE OPERATOR 10/22/18 Estradiol (ESTRADIOL 0.05 MG) 1 Each Patch.tdwk, 1 EACH TD Q7D, #12 PATCH.WK 3 Refills Prov:OTF PINEDA MD 08/29/18 Progesterone,Micronized (PROMETRIUM) 200 Mg Capsule, 200 MG PO DAILY, #90 CAPSULE 3 Refills Prov:OTF PINEDA MD 08/29/18 Estradiol/Norethindrone Acet (COMBIPATCH 0.05-0.25 MG PTCH) 1 Each Patch.tdsw, 1 EACH TD twice weekly for 30 Days, #8 ADH.PATCH 1 Refill Prov:OTF PINEDA MD 06/20/18 Hydrocodone Bit/Acetaminophen (NORCO 5-325 TABLET) 1 Each Tablet, 1 EACH PO Q4H PRN for PAIN, #60 TAB 0 Refills Prov:JONH PERSON MD 04/09/18 Acyclovir (ACYCLOVIR) 400 Mg Tablet, 400 MG PO BID for 90 Days, #180 TAB 3 Refills Prov:LATASHA REYNOSO CHAIN TESTING MACHINE OPERATOR-BC, ONC 06/20/17 Reported Medications Cyclophosphamide (Cyclophosphamide) 50 Mg Capsule, 500 MG PO QWEEK, CAPSULE Pt takes 500mg weekly on days 1,8,15 and 22 of a 28 day cycle with dexamethsone and pomalyst 10/11/18 Pomalidomide (POMALYST) 4 Mg Capsule, 4 MG PO, CAPSULE Pt takes 4 mg daily days 1-21 of 28 day cycle 10/11/18 Dexamethasone 4 Mg Tab (DEXAMETHASONE 4 MG TAB) 4 Mg Tab, 4 MG PO DIRECTED, TAB Pt takes 16mg on days 1,8,15 and 22 of the 28 day cycle with oral cytoxan and pomalyst 10/11/18 Magnesium Hydroxide (MILK OF MAGNESIA) 400 Mg/5 Ml Oral.susp, 400 MG PO, BOTTLE 03/31/16 Lactobacillus Combination No.4 (PROBIOTIC) 1 Each Capsule, 1 EACH PO, CAPSULE 03/31/16 Multivitamin (MULTI VITAMIN DAILY) 1 Each Tablet, 1 EACH PO 03/31/16 Cholecalciferol (Vitamin D3) (VITAMIN D) 5,000 Unit Tablet, 5000 UNIT PO 03/31/16 Ondansetron (ONDANSETRON ODT) 8 Mg Tab.rapdis, 8 MG PO PRN PRN for NAUSEA, TAB 03/31/16 Diclofenac Sodium 1% Gel (VOLTAREN 1% GEL) 100 Gm Gel..gram., PRN for PAIN 03/31/16 Trazodone Hcl (TRAZODONE HCL) 50 Mg Tablet, 50 MG PO QHS 03/31/16 Discontinued Scripts Ciprofloxacin 500 Mg Tab (CIPROFLOXACIN 500 MG TAB) 500 Mg Tablet, 500 MG PO Q12H for 7 Days, #14 TAB Prov:KELLE ARROYO MD 01/09/19 Reviewed Nurses Notes: Yes Old Medical Records Reviewed: Yes Hx Smoking: No Smoking Status: Never Smoker Exposure to Second Hand Smoke?: No Hx Substance Use Disorder: No Hx Alcohol Use: Yes Constitutional Vital Sign - Last 24 Hours 01/09/19 01/09/19 01/09/19 01/09/19 20:17 20:32 20:33 20:47 Temp 98.5 Pulse ??? 99 ??? Resp 17 B/P (MAP) 128/69 (88) 128/69 Pulse Ox 93 O2 Delivery Room Air 01/09/19 01/09/19 01/09/19 01/09/19 21:00 21:17 21:30 21:35 Pulse 88 86 B/P (MAP) 97/59 (72) 95/57 (70) Pulse Ox 94 93 01/09/19 01/09/19 01/09/19 01/09/19 22:00 22:05 22:10 22:30 Pulse 81 82 B/P (MAP) 97/55 (69) 105/65 (78) Pulse Ox 92 95 01/09/19 01/09/19 01/09/19 01/09/19 22:40 22:58 23:00 23:10 Pulse 82 89 B/P (MAP) 103/63 (76) 106/63 (77) Pulse Ox 90 82 01/09/19 01/09/19 01/09/19 23:15 23:30 23:45 Pulse 83 84 B/P (MAP) 108/65 (79) Pulse Ox 93 92 Intake and Output 01/09/19 01/09/19 01/10/19 15:01 23:01 07:01 Intake Total 100 ml Balance 100 ml Physical Exam General Appearance: The patient is alert, has no immediate need for airway protection and no signs of toxicity. Eyes: Pupils equal and round no pallor or injection. ENT, Mouth: Mucous membranes are moist. TM's clear, op wnl Respiratory: There are no retractions, lungs are clear to auscultation. Cardiovascular: Regular rate and rhythm. no m/r/g R chest port without erythema Gastrointestinal: Abdomen is soft and non tender, no masses, bowel sounds normal. Neurological: alert, oriented, no focal deficits Skin: Warm and dry, no rashes. Pt has abrasion r distal calf that has been healing over past 10 days. She rubbed ankle against a boat. Uses topical abx. No recent worsening Musculoskeletal: Neck is supple non tender. No LAD Extremities are nontender, nonswollen and have full range of motion. DIFFERENTIAL DIAGNOSIS: After history and physical exam differential diagnosis was considered for neutropenic fever, bactermeia, sepsis, or other emergnet cause of symptoms. Medical Decision Making Data Points Result Diagram: 01/09/19203901/09/192039 Laboratory Hematology Test 01/09/19 20:25 01/09/19 20:29 01/09/19 20:40 Urine Color Straw Urine Clarity Slightly-cloudy Urine pH 6.0 pH (4.8-9.5) Urine Specific [place] 1.005 Urine Protein Negative mg/dL (NEGATIVE) Urine Glucose (UA) Negative mg/dL (NEGATIVE) Urine Ketones Negative mg/dL (NEGATIVE) Urine Blood Small (NEGATIVE) Urine Nitrite Negative (NEGATIVE) Urine Bilirubin Negative (NEGATIVE) Urine Urobilinogen Negative mg/dL (0.2-1.9) Urine Leukocyte Esterase Negative (NEGATIVE) Urine RBC 1 /HPF (0-2/HPF) Urine WBC 3 /HPF (0-5/HPF) Urine Squamous Epithelial Cells Many /LPF (</=FEW) Urine Bacteria Moderate /HPF (NONE-FEW) Urine Mucus None /HPF (NONE-FEW) Stool Leukocytes, Qualitative Positive Red Blood Count 2.68 M/uL (4.17-5.56) Mean Corpuscular Volume 99.0 fL (80.0-96.0) Mean Corpuscular Hemoglobin 34.2 pg (26.0-33.0) Mean Corpuscular Hemoglobin Concent 34.6 g/dL (32.0-36.0) Red Cell Distribution Width 17.4 % (11.5-14.5) Mean Platelet Volume 7.9 fL (7.2-11.1) Neutrophils (%) (Auto) % (39.4-72.5) Lymphocytes (%) (Auto) % (17.6-49.6) Monocytes (%) (Auto) % (4.1-12.4) Eosinophils (%) (Auto) % (0.4-6.7) Basophils (%) (Auto) % (0.3-1.4) Nucleated RBC Relative Count (auto) /100WBC Neutrophils # (Auto) K/uL (2.0-7.4) Lymphocytes # (Auto) K/uL (1.3-3.6) Monocytes # (Auto) K/uL (0.3-1.0) Eosinophils # (Auto) K/uL (0.0-0.5) Basophils # (Auto) K/uL (0.0-0.1) Nucleated RBC Absolute Count (auto) K/uL Neutrophils % (Manual) 20 % (39.4-72.5) Band Neutrophils % 40 % Lymphocytes % (Manual) 8 % (17.6-49.6) Monocytes % (Manual) 28 % (4.1-12.4) Eosinophils % (Manual) 3 % (0.4-6.7) Basophils % (Manual) 1 % (0.3-1.4) Platelet Estimate Low Anisocytosis 1+ Peripheral Blood Smear Yes Y/N Sodium Level 138 mmol/L (137-145) Potassium Level 3.2 mmol/L (3.5-5.0) Chloride Level 106 mmol/L (98-107) Carbon Dioxide Level 20 mmol/L (22-31) Blood Urea Nitrogen 17 mg/dl (7-18) Creatinine 0.90 mg/dl (0.52-1.04) Glomerular Filtration Rate Calc > 60.0 Random Glucose 91 mg/dl (75-110) Lactate 0.8 mmol/L (0.7-2.1) Calcium Level 9.1 mg/dl (8.4-10.2) Total Bilirubin 0.6 mg/dl (0.2-1.3) Aspartate Amino Transf (AST/SGOT) 20 U/L (0-35) Alanine Aminotransferase (ALT/SGPT) 27 U/L (0-56) Alkaline Phosphatase 63 U/L (0-126) Total Protein 6.9 g/dl (6.3-8.2) Albumin 4.2 g/dl (3.5-5.0) Chemistry Test 01/09/19 20:25 01/09/19 20:29 01/09/19 20:40 Urine Color Straw Urine Clarity Slightly-cloudy Urine pH 6.0 pH (4.8-9.5) Urine Specific [place] 1.005 Urine Protein Negative mg/dL (NEGATIVE) Urine Glucose (UA) Negative mg/dL (NEGATIVE) Urine Ketones Negative mg/dL (NEGATIVE) Urine Blood Small (NEGATIVE) Urine Nitrite Negative (NEGATIVE) Urine Bilirubin Negative (NEGATIVE) Urine Urobilinogen Negative mg/dL (0.2-1.9) Urine Leukocyte Esterase Negative (NEGATIVE) Urine RBC 1 /HPF (0-2/HPF) Urine WBC 3 /HPF (0-5/HPF) Urine Squamous Epithelial Cells Many /LPF (</=FEW) Urine Bacteria Moderate /HPF (NONE-FEW) Urine Mucus None /HPF (NONE-FEW) Stool Leukocytes, Qualitative Positive White Blood Count 3.0 k/uL (4.5-11.0) Red Blood Count 2.68 M/uL (4.17-5.56) Hemoglobin 9.2 g/dL (12.0-16.0) Hematocrit 26.5 % (34.0-47.0) Mean Corpuscular Volume 99.0 fL (80.0-96.0) Mean Corpuscular Hemoglobin 34.2 pg (26.0-33.0) Mean Corpuscular Hemoglobin Concent 34.6 g/dL (32.0-36.0) Red Cell Distribution Width 17.4 % (11.5-14.5) Platelet Count 95 K/uL (150-450) Mean Platelet Volume 7.9 fL (7.2-11.1) Neutrophils (%) (Auto) % (39.4-72.5) Lymphocytes (%) (Auto) % (17.6-49.6) Monocytes (%) (Auto) % (4.1-12.4) Eosinophils (%) (Auto) % (0.4-6.7) Basophils (%) (Auto) % (0.3-1.4) Nucleated RBC Relative Count (auto) /100WBC Neutrophils # (Auto) K/uL (2.0-7.4) Lymphocytes # (Auto) K/uL (1.3-3.6) Monocytes # (Auto) K/uL (0.3-1.0) Eosinophils # (Auto) K/uL (0.0-0.5) Basophils # (Auto) K/uL (0.0-0.1) Nucleated RBC Absolute Count (auto) K/uL Neutrophils % (Manual) 20 % (39.4-72.5) Band Neutrophils % 40 % Lymphocytes % (Manual) 8 % (17.6-49.6) Monocytes % (Manual) 28 % (4.1-12.4) Eosinophils % (Manual) 3 % (0.4-6.7) Basophils % (Manual) 1 % (0.3-1.4) Platelet Estimate Low Anisocytosis 1+ Peripheral Blood Smear Yes Y/N Glomerular Filtration Rate Calc > 60.0 Lactate 0.8 mmol/L (0.7-2.1) Calcium Level 9.1 mg/dl (8.4-10.2) Total Bilirubin 0.6 mg/dl (0.2-1.3) Aspartate Amino Transf (AST/SGOT) 20 U/L (0-35) Alanine Aminotransferase (ALT/SGPT) 27 U/L (0-56) Alkaline Phosphatase 63 U/L (0-126) Total Protein 6.9 g/dl (6.3-8.2) Albumin 4.2 g/dl (3.5-5.0) Urinalysis Test 01/09/19 20:25 Urine Color Straw Urine Clarity Slightly-cloudy Urine pH 6.0 pH (4.8-9.5) Urine Specific [place] 1.005 Urine Protein Negative mg/dL (NEGATIVE) Urine Glucose (UA) Negative mg/dL (NEGATIVE) Urine Ketones Negative mg/dL (NEGATIVE) Urine Blood Small (NEGATIVE) Urine Nitrite Negative (NEGATIVE) Urine Bilirubin Negative (NEGATIVE) Urine Urobilinogen Negative mg/dL (0.2-1.9) Urine Leukocyte Esterase Negative (NEGATIVE) Urine RBC 1 /HPF (0-2/HPF) Urine WBC 3 /HPF (0-5/HPF) Urine Squamous Epithelial Cells Many /LPF (</=FEW) Urine Bacteria Moderate /HPF (NONE-FEW) Urine Mucus None /HPF (NONE-FEW) Microbiology Microbiology Date/Time Source Procedure Growth Status 01/09/19 20:29 Stool Gram Stain - Final Resulted 01/09/19 20:29 Stool Stool Culture Pending Resulted EKG/Imaging EKG Interpretation 12 lead EKG: Rhythm: normal sinus rhythm Gable: normal QRS: normal ST segments: normal NSR with borderline prolonged qt at 474 Monitor Interpretation: Normal Sinus Rhythm ED Course/Re-evaluation ED Course 53 f with multiple myeloma presents with fever. While she is not neutropenic, she has 40 bands; she has had multiple episodes of diarrhea and initial stuool results show multiple organisms. Given findings, concern for bacterail infection including shigella. I initiated abx and discussed inpt v d/c with next day f/u w ith pt. She wishes to be discharged and is hd stable, appears well, so this is reasonable. We discussed meds and potential for qt prolongation. She does not take trazodone and will withhold zofran unless absolutely nec. She understands azithro is first line for diarrhea but may also interact with her meds. She undertands SRP's. Decision to Disposition Date: Jan 09, 2019 Decision to Disposition Time: 23:40 Depart Departure Latest Vital Signs Vital Signs Date Time Temp Pulse Resp B/P (MAP) Pulse Ox O2 Delivery O2 Flow Rate FiO2 01/09/19 23:45 84 92 01/09/19 23:30 108/65 (79) 01/09/19 20:33 98.5 17 Room Air Impression: Primary Impression: Febrile illness, acute Condition: Improved Disposition: HOME OR SELF-CARE New Scripts Azithromycin (ZITHROMAX) 250 Mg Tablet 1 TAB PO QDAY for 7 Days, #7 TAB Prov: KELLE ARROYO MD 01/09/19 Amoxicillin/Pot Clav 875-125 Mg Tab (AUGMENTIN 875-125 TABLET) 1 Each Tablet 1 TAB PO Q12H for 7 Days, #14 TAB Prov: KELLE ARROYO MD 01/09/19 Patient Instructions: Acute Diarrhea (ED), Fever in Adults (ED) Additional Instructions: As we discussed, please follow up with oncology clinic in am or return sooner if you feel lightheaded, short of breath, or have any concerns. Take antibiotics as instructed; you are taking multiple medications that have a small potential to cause an arrhythmia; take zofran as rarely as possible while on azithromycin; return if you feel lightheaded, palpitations, or any concerns. KELLE ARROYO MD Jan 09, 2019 21:11
[2019-01-09] MEDS ORDERED: NS(*) 0.9% 1000 ML BAG 1,000 ML IV ONE (21:15)
[2019-01-09] MEDS ORDERED: CIPROFLOXACIN 500 MG TAB PO ONE (21:35)
[2019-01-09] MEDS ORDERED: AMPICILLIN/SULBACT (*) 3 GM VL 3 GM in NS(*) 0.9% 100 ML MINI-BAG 100 ML IVPB ONE (21:35)
[2019-01-09] MEDS ORDERED: NS(*) 0.9% 100 ML BAG 100 ML ONE (21:43)
--- NOTE | 2019-01-09 22:12 | RADIOLOGY IMAGING REPORT ---
[place] [facility] [place] Padma [place] : 1965 MR: [id number] V: [id number] EXAM DATE: ORDERING PHYSICIAN: KELLE ARROYO TECHNOLOGIST: Location: [facility] Patient: Padma Johnson : 1965 Visit/Account:[id number] Date of Sevice: 01/09/2019 TWO VIEW CHEST 01/09/2019 8:47 PM. INDICATION: Fever, shortness of breath. History of multiple myeloma being treated with chemotherapy. COMPARISON: 10/22/2018. FINDINGS: Lungs are well-expanded. The lungs are clear. No pneumothorax or pleural effusion. Heart size is normal. Unchanged right IJ central venous catheter with port terminating near the superior cavoatrial junction. Kyphoplasty cement and L2. Mild compression of T9, T11 and T12 is unchanged. IMPRESSION: No acute abnormality. Report Dictated By: Chente Guerrero MD at 01/09/2019 10:05 PM Report E-Signed By: Chente Guerrero MD at 01/09/2019 10:07 PM WSN:[id number]
[2019-01-09] MEDS ORDERED: AMOX-559 PO (23:04)
[2019-01-09] MEDS ORDERED: CIPR-214 PO (23:04)
--- NOTE | 2019-01-09 23:14 | EKG ---
FACILITY: [facility] [place] PATIENT NAME: PENNY ELLER : [id number] MR: [id number] V: [id number] EXAM DATE: ORDERING PHYSICIAN: KELLE ARROYO TECHNOLOGIST: ROSENDA Test Reason : MED INTERACTION Blood Pressure : / mmHG Vent. Rate : 083 BPM Atrial Rate : 083 BPM P-R Int : 156 ms QRS Dur : 086 ms QT Int : 404 ms P-R-T Axes : 059 051 052 degrees QTc Int : 474 ms Normal sinus rhythm Prolonged QT Abnormal ECG No previous ECGs available Confirmed by RUPINDER WELSH ([id number]) on 01/10/2019 6:05:36 AM Referred By: Confirmed By:RUPINDER WELSH
[2019-01-09 23:30] VITALS: BP 108/65
[2019-01-09] MEDS ORDERED: AZIT-1 PO (23:38)
[2019-01-09] MEDS ORDERED: HEPARIN FLSH (PORT) 500 UN/5ML IVP ONE (23:40)
== END 2019-01-10 | disposition home or self-care (01) ==
LOC: ER 20:50
DX: R50.9 Fever, unspecified (principal)
CPT/HCPCS: 36415; 71046; 81001; 83605; 83630; 85025; 87040; 87045; 87205; 93005; 96361; 96365; 99284; A9270; J0295; J1642; J7030; 82040; 82247; 82310; 82374; 82435; 82565; 82947; 84075; 84132; 84155; 84295; 84450; 84460; 84520

== ENCOUNTER 2019-01-21 11:22 | Outpatient (RCR) | payer MEDICARE, BC ==
[2018-10-29 11:02] VITALS: BP 121/76
[2018-10-29 11:39] LABS: PLATELET COUNT, AUTOMATED 52 K/uL (150-450)
--- NOTE | 2018-10-30 05:30 | ONCOLOGY FOLLOW UP NOTE ---
EVENT DATE: October 29, 2018 CHIEF COMPLAINT/REASON FOR VISIT Ms. Johnson is a pleasant 52-year-old female with advanced multiple myeloma, now refractory to CAR T-cell therapy, her most recent line of therapy. She initiated oral Cytoxan, pomalidomide, and dexamethasone on October 15, 2018. We did not get her kappa and lambda light chains until cycle 1 day 8, and it appears that she may be responding considerably already. She is having bone pain, which could be a sign of response. We did get x-rays to make sure there were no new lesions, and things look stable. Here for followup. HISTORY OF PRESENT ILLNESS Pat returns. She had more weakness and fatigue and was becoming more symptomatic. Dr. Morgan at [facility] recommended Cytoxan, pomalidomide, and dexamethasone followed by allogeneic stem cell transplant, which is very reasonable. We have confirmed that she has cells available at [facility]. She would like to get the transplant done in [place], though. She has established with [facility], and I believe they do an excellent job with transplant and I highly recommend them, as they have worked with her before. She has recovered from her URI and is finishing up antibiotics. She is tolerating the Cytoxan, pomalidomide, and dexamethasone quite well. No bladder symptoms. No sign of a DVT. She has mild myelosuppression, but her neutrophils are acceptable to continue with treatment. Her platelet count is slightly lower, but we would like to press forward as well. No bleeding concerns. We will check her labs weekly, and we may need to adjust the dose if the myelosuppression becomes much worse. ONCOLOGY HISTORY The patient is a 52-year-old female who was diagnosed with kappa light chain multiple myeloma in December 2014. 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 She presented with anemia, hypercalcemia, numerous lytic lesions with compression of lumbar 2 and renal failure. Her animal protein at diagnosis was 0.3 gm/dL. She is status one cycle of VTD, then switched to VRD and completed a total of five cycles of induction. She received mobilization with G-CSF and collected a total of 14.9 x 10 (6) CD34/kg and her single agent melphalan autotransplant on March 16, 2013. She achieved VGPR with residual bone marrow and monoclonal protein involvement. She was started on VRD maintenance and completed six cycles and achieved a complete remission by serum and urine markers. Bone marrow biopsy January 2014 was less than 1% monoclonal plasma cells. The patient was switched to Revlimid and continued on that treatment until March 2015, when she showed signs of progression. She had light chain elevation in December 2014, and her Revlimid dose was increased to 10 mg, having been decreased due to cytopenias before. In March 2015, she had further progression of her kappa light chain of 24, K/L ratio of 26. No monoclonal protein in her serum or urine. She underwent bone marrow biopsy which showed 5% monoclonal plasma cells. With confirmation of disease progression, she was initiated on carfilzomib, pomalidomide, and dexamethasone. After two cycles of treatment, she showed small decrease in the light chain and increased again and overall remained stable with nearly seven cycles of the treatment. She was seen at the clinic in [place] for a second opinion with recommendation to continue on the current therapy until she progressed. Her sister has been confirmed as a match for allo transplant, though she does not want to pursue this any further unless it becomes more of a necessity. With her disease progression, the patient started on CPD early April 2015 and after two cycles in June 2015, her re-staging was concerning as her light chains are elevated again. Her bone marrow at that time revealed 1% monoclonal plasma cells, MRD with 1984 cells/million. After three more cycles of CPD, her serum light chain has essentially been stable. In September 2015 she had complete re-staging, which shows her PET scan with progressive disease as compared to December 2014. Her bone marrow was stable with 2% monoclonal plasma cells, so interestingly, her MRD is down to 451 cells per million. Her light chains remained stable until cycle 7 and the kappa light chains increased again. The patient was offered chemotherapy with DPACE, followed by auto transplant; however, she elected to start daratumumab. The patient finished the eight weekly doses of daratumumab and four of the bi-weekly doses, and she is due today, March 31, 2016, to start her fifth dose of daratumumab, as the patient moved from [place] to [place], [place], and she would like to establish her care here. Patient completed 15 cycles of daratumumab, Velcade and methylprednisolone. Patient has been evaluated at [facility] with recommendation of treatment Velcade weekly, dexamethasone 20 mg weekly, and venetoclax orally. She completed this therapy before evidence of relapse. She then moved forward with CAR T-cell therapy on clinical trial at [facility] and did well with this. She had initial response but, unfortunately, has now relapsed in the late winter of 2018. Discussion is ongoing to determine the next best of therapy but have elected to pursue Cytoxan, pomalidomide, dexamethasone. She has not yet had elotuzumab before. She had VD-PACE in the distant past and we could re-use that in the future as well. She would be a candidate for a second autologous stem cell transplant after control of her disease and we could also consider allogenic stem cell transplant at some point in the future as well if required. She has a matched sibling by report. PAST MEDICAL HISTORY 1. Multiple myeloma. 2. Hypothyroidism. 3. GERD. PAST SURGICAL HISTORY 1. Kyphoplasty of the spine. 2. Back surgery with nerve ablation. SOCIAL HISTORY The patient is with one daughter. She is on disability because of multiple myeloma. She never smoked. She occasionally drank. Denies any abuse of illicit drugs. FAMILY HISTORY Father had bladder cancer in his late 80s. ALLERGIES No known drug allergies. REVIEW OF SYSTEMS CONSTITUTIONAL: No fevers or chills. She is recovering from this recent infection. HEENT: No headache or vision changes. CARDIOVASCULAR: No chest pain, dyspnea on exertion, or edema. RESPIRATORY: No shortness of breath, wheeze, or cough. GI: No nausea or vomiting. : No dysuria, hematuria, bladder pain of any kind. SKIN: No concerning rashes or lesions. PSYCHIATRIC: No anxiety or depression. Remainder of her review of systems is otherwise negative. PHYSICAL EXAMINATION VITAL SIGNS: Blood pressure 121/76, pulse 96, respiratory rate 16, temperature 98.5 Fahrenheit, oxygen saturation 97% on room air. Weight 84.5 kg, pain 5/10, fatigue 4/10. GENERAL: Stable condition, resting comfortably in the chair. HEENT: Normocephalic, atraumatic. CARDIOVASCULAR: Regular rate and rhythm. LUNGS: Clear. ABDOMEN: Soft, nontender. EXTREMITIES: No clubbing, cyanosis, or edema. SKIN: No concerning rashes or lesions. Remainder of physical exam unremarkable. IMPRESSION/REPORT/PLAN Ms. Johnson is a pleasant 52-year-old female with the following: * Relapsed refractory multiple myeloma, here for cycle 1 day 15 evaluation of Cytoxan, pomalidomide, and dexamethasone. She is tolerating this quite well. She had been on pomalidomide in the past, but it has been quite some time. She responded to this therapy. We are utilizing Cytoxan now instead of the prior carfilzomib with this regimen. I believe she is responding, but I discussed with her today how I believe she should transition to at least autologous stem cell transplant after control of the disease. I recommend she follow up with the team of her choice in approximately four to six weeks. She has better social support in [place], so she would like to see Dr. Montejo's team. Answered all of her many questions today. Reviewed her labs in detail. Will reach out to Dr. Morgan and see if there are any additional genetic results. BILLING Level 5. Total time 45 minutes, counseling time 30. MTDD
[2018-11-09 08:24] LABS: PLATELET COUNT, AUTOMATED 51 K/uL (150-450)
[2018-11-09 08:56] VITALS: BP 119/86
[2018-11-09] MEDS: HEPARIN FLSH (PORT) 500 UN/5ML IVP PRN ×2 (10:33→11:31)
[2018-11-09] MEDS: LIDOCAINE/SOD BICARB 8.4% SYR ID PRN (10:34)
[2018-11-09 11:11] VITALS: BP 127/85
[2018-11-12 08:26] VITALS: BP 107/79
[2018-11-12 08:40] LABS: PLATELET COUNT, AUTOMATED 61 K/uL (150-450)
[2018-11-13 09:44] VITALS: BP 107/82
[2018-11-14 09:57] VITALS: BP 106/71
[2018-11-14 10:03] LABS: PLATELET COUNT, AUTOMATED 56 K/uL (150-450)
[2018-11-16 10:11] LABS: PLATELET COUNT, AUTOMATED 65 K/uL (150-450)
[2018-11-16 10:12] VITALS: BP 111/74
[2018-11-23 09:52] LABS: PLATELET COUNT, AUTOMATED 128 K/uL (150-450)
[2018-11-23 10:37] VITALS: BP 112/72
--- NOTE | 2018-11-23 11:54 | ONCOLOGY FOLLOW UP NOTE ---
EVENT DATE: November 23, 2018 CHIEF COMPLAINT Ms. Johnson is a pleasant 52-year-old female with advanced multiple myeloma, now refractory to CAR T-cell therapy, her most recent line of therapy. She initiated oral Cytoxan, pomalidomide, and dexamethasone on October 15, 2018. We did not get her kappa and lambda light chains until cycle 1 day 8, and it appears that she may be responding considerably already. She has been having some bone pain, which could be a sign of response. We obtained x-rays on October 22, 2018 to make sure there were no new lesions and everything appeared stable. She is now into Cycle #2, which she started on Monday, November 19, 2018. HISTORY OF PRESENT ILLNESS Pat returns. She had more weakness and fatigue and was becoming more symptomatic. Dr. Morgan at [facility] recommended Cytoxan, pomalidomide, and dexamethasone followed by allogeneic stem cell transplant, which is very reasonable. We have confirmed that she has cells available at [facility]. She would like to get the transplant done in [place], though. She has established with [facility], and I believe they do an excellent job with transplant and I highly recommend them, as they have worked with her before. She recovered from her recent URI and completed antibiotics. She is tolerating Cytoxan, pomalidomide and dexamethasone quite well. She has not had any bladder symptoms. No signs of DVT. She has had some mild myelosuppression. Her neutrophils have been acceptable to continue with treatment. Fatigue has been the worse side effect for her. She did require a hold of treatment for a week with Neupogen given on November 12, 2018. Her platelets also have been lower but we are again wanting to continue forward as well. She has not had any bleeding complications and platelets have risen. She is checking labs weekly. We may certainly need to adjust her dose of myelosuppression continues. She is feeling quite well right now with the exception of significant fatigue, which she states makes her feel like she is dragging all the time. She is a bit concerned about this as next week is graduation and she'll be around large crowds of people and family plans to visit. Her pain has improved and she tells me that she mostly only feels pain in her anterior chest or ribs if she has a deep forceful sneeze. Otherwise, from a pain perspective, she thinks this is significantly improved. ONCOLOGY HISTORY The patient is a 52-year-old female who was diagnosed with kappa light chain multiple myeloma in December 2014. 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 She presented with anemia, hypercalcemia, numerous lytic lesions with compression of lumbar 2 and renal failure. Her animal protein at diagnosis was 0.3 gm/dL. She is status one cycle of VTD, then switched to VRD and completed a total of five cycles of induction. She received mobilization with G-CSF and collected a total of 14.9 x 10 (6) CD34/kg and her single agent melphalan autotransplant on March 16, 2013. She achieved VGPR with residual bone marrow and monoclonal protein involvement. She was started on VRD maintenance and completed six cycles and achieved a complete remission by serum and urine markers. Bone marrow biopsy January 2014 was less than 1% monoclonal plasma cells. The patient was switched to Revlimid and continued on that treatment until March 2015, when she showed signs of progression. She had light chain elevation in December 2014, and her Revlimid dose was increased to 10 mg, having been decreased due to cytopenias before. In March 2015, she had further progression of her kappa light chain of 24, K/L ratio of 26. No monoclonal protein in her serum or urine. She underwent bone marrow biopsy which showed 5% monoclonal plasma cells. With confirmation of disease progression, she was initiated on carfilzomib, pomalidomide, and dexamethasone. After two cycles of treatment, she showed small decrease in the light chain and increased again and overall remained stable with nearly seven cycles of the treatment. She was seen at the clinic in [place] for a second opinion with recommendation to continue on the current therapy until she progressed. Her sister has been confirmed as a match for allo transplant, though she does not want to pursue this any further unless it becomes more of a necessity. With her disease progression, the patient started on CPD early April 2015 and after two cycles in June 2015, her re-staging was concerning as her light chains are elevated again. Her bone marrow at that time revealed 1% monoclonal plasma cells, MRD with 1984 cells/million. After three more cycles of CPD, her serum light chain has essentially been stable. In September 2015 she had complete re-staging, which shows her PET scan with progressive disease as compared to December 2014. Her bone marrow was stable with 2% monoclonal plasma cells, so interestingly, her MRD is down to 451 cells per million. Her light chains remained stable until cycle 7 and the kappa light chains increased again. The patient was offered chemotherapy with DPACE, followed by auto transplant; however, she elected to start daratumumab. The patient finished the eight weekly doses of daratumumab and four of the bi-weekly doses, and she is due today, March 31, 2016, to start her fifth dose of daratumumab, as the patient moved from [place] to [place], [place], and she would like to establish her care here. Patient completed 15 cycles of daratumumab, Velcade and methylprednisolone. Patient has been evaluated at [facility] with recommendation of treatment Velcade weekly, dexamethasone 20 mg weekly, and venetoclax orally. She completed this therapy before evidence of relapse. She then moved forward with CAR T-cell therapy on clinical trial at [facility] and did well with this. She had initial response but, unfortunately, has now relapsed in the late winter of 2018. Discussion is ongoing to determine the next best of therapy but have elected to pursue Cytoxan, pomalidomide, dexamethasone. She has not yet had elotuzumab before. She had VD-PACE in the distant past and we could re-use that in the future as well. She would be a candidate for a second autologous stem cell transplant after control of her disease and we could also consider allogenic stem cell transplant at some point in the future as well if required. She has a matched sibling by report. PAST MEDICAL HISTORY 1. Multiple myeloma. 2. Hypothyroidism. 3. GERD. PAST SURGICAL HISTORY 1. Kyphoplasty of the spine. 2. Back surgery with nerve ablation. SOCIAL HISTORY The patient is with one daughter. She is on disability because of multiple myeloma. She never smoked. She occasionally drank. Denies any abuse of illicit drugs. FAMILY HISTORY Father had bladder cancer in his late 80s. ALLERGIES No known drug allergies. MEDICATIONS 1. Acyclovir 400 mg p.o. b.i.d. 2. Vitamin D3 5000 units p.o. q.d. 3. Cyclophosphamide 500 mg p.o. q. week on days 1, 8, 15 and 22 of a 28-day cycle. 4. Dexamethasone 16 mg on days 1, 8, 15 and 22 on a 28-day cycle. 5. Diclofenac gel p.r.n. pain. 6. Duloxetine 60 mg 1 p.o. q.d. 7. Estradiol patch transdermal q. week. 8. Hydrocodone/acetaminophen 5/325 mg 1 p.o. q4h p.r.n. pain. 9. Lactobacillus combination one capsule daily. 10. Levothyroxine 150 mcg p.o. q.d. 11. Milk of Magnesia 400 mg p.o. q.d. 12. Multivitamin daily. 13. Omeprazole 20 mg daily. 14. Ondansetron 8 mg ODT one sublingual p.r.n. nausea. 15. Pomalidomide 4 mg capsule daily on days 1 through 21 of a 28-day cycle. 16. Trazodone 50 mg tablet p.o. at bedtime. 17. Progesterone micronized 200 mg p.o. daily. REVIEW OF SYSTEMS CONSTITUTIONAL: Patient denies any recent fevers, chills or night sweats. She recovered from an URI approximately one month ago. HEENT: No vision changes, headache, tinnitus, dysphagia or odynophagia. No mouth sores. CARDIOVASCULAR: No chest pain, syncope or presyncope. RESPIRATORY: No shortness of breath, cough, sputum production of hemoptysis. No pleuritic chest pain. GI: No abdominal pain, nausea, vomiting or diarrhea. She has had some occasional constipation, which she is managing well. No bright red blood per rectum or melena. Appetite is normal. She is using stool softeners. : No dysuria, hematuria or genitourinary discharge. MUSCULOSKELETAL: No focal areas of pain. She does have some generalized bony type pain but this is now only most noticeable with deep coughing or deep sneezes. No new pain. NEURO: No headaches or seizure activity. PSYCHIATRIC: She denies any severe anxiety, severe depression, suicidal or homicidal ideation. SKIN: No rash. No generalized pruritus. No suspicious lumps or bumps. ENDOCRINE: She denies any heat or cold intolerance. The remainder of a 12-point review of systems is performed today and is otherwise negative. PHYSICAL EXAMINATION VITAL SIGNS: T 98.0, P 98, R 16, BP 111/74, oxygen saturation 98% on room air. HEAD: Atraumatic, normocephalic. EYES: Sclerae anicteric. ENT/MOUTH: Moist mucous membranes. No suspicious oral lesions. NECK: Supple. No lymphadenopathy. CARDIOVASCULAR: Mildly tachycardic with regular rate and rhythm. LUNGS: Clear to auscultation bilaterally. No focal findings. ABDOMEN: Soft, nontender, nondistended. Bowel sounds positive x4. EXTREMITIES: No edema. No clubbing or cyanosis. NEURO: Patient is awake, alert, oriented x3. PSYCH: Mood and affect are appropriate. DERM: No rash, petechiae or purpura. MUSCULOSKELETAL: Gait and ambulation are steady. LABORATORY CBC today: WBC 1.7, ANC 1.2, hemoglobin 9.9, hematocrit 29.4%, platelets 128,000. CMP today: Unremarkable with exception of mildly elevated glucose at 130, likely related to corticosteroid. Serum creatinine normal at 0.60. LFTs normal. Total protein normal at 7.5 with albumin normal at 4.5. Calcium normal at 10.1. Serum free light chains on November 09, 2018: Free kappa light chain down to 35.5. Previously, this was 56.6 on October 29, 2018, and 142.0 on October 22, 2018. Free lambda light chains have been stable at less than 0.16. Free kappa lambda ratio has been undetectable since prior to October 22, 2018. IMPRESSION AND PLAN Ms. Johnson is a very pleasant 52-year-old female with relapsed multiple myeloma with her most recent therapy being CAR T-cell therapy. After discussion, she would like to move forward with Cytoxan, pomalidomide, dexamethasone, which I believe is a very appropriate regimen. We could utilize an elotuzumab-based therapy in the future if necessary. We could also utilize a second autologous stem cell transplant after completion of this therapy if she would like. We agree with Dr. Morgan that we could do it after three cycles. She does have some plans at the beginning of the summer, so we may end up treating her with this oral therapy for a total of four to six cycles before moving forward with transplant. She is now into her second cycle and is several days into this. She started day 1 of Cycle #2 earlier this week on Monday, November 19, 2018. She delayed this by a couple of days and we did have to delay her by a week in late October secondary to worsening myelosuppression. She is tolerating this well with the exception of grade 2/3 fatigue. She's been on pomalidomide in the past and responded to this therapy. No signs of infection. 1. Advanced multiple myeloma: Patient has recently initiated oral Cytoxan, pomalidomide, and dexamethasone. She appears to be responding. She'll be due for Cycle #2, day 8, next Monday. She has some mild neutropenia with ANC today noted at 1.2. We will continue on for now at current dose. 2. She will return to clinic next for a CBC recheck, especially since she has a busy weekend planned for next weekend and may be around many people. She is aware of neutropenic precautions. 3. We discussed potential dose adjustment in the future if myelosuppression worsens. I will discuss her case with Dr. Mcghee. 4. Pain, currently under good control and improved. 5. She is scheduled to follow up with Dr. Mcghee on December 03, 2018, and she will keep that appointment. MTDD
[2018-11-29 08:38] VITALS: BP 122/83
[2018-11-29 08:39] LABS: PLATELET COUNT, AUTOMATED 86 K/uL (150-450)
[2018-12-03 09:36] VITALS: BP 115/82
[2018-12-03 09:40] LABS: PLATELET COUNT, AUTOMATED 57 K/uL (150-450)
[2018-12-04 09:34] VITALS: BP 121/74
[2018-12-04 09:38] LABS: PLATELET COUNT, AUTOMATED 51 K/uL (150-450)
--- NOTE | 2018-12-04 10:07 | [facility] ONCOLOGY NOTE ---
EVENT DATE: December 03, 2018 CHIEF COMPLAINT/REASON FOR VISIT Ms. Johnson is a pleasant 52-year old female with advanced multiple myeloma, now refractory to CAR T-cell therapy. She initiated oral Cytoxan, pomalidomide and dexamethasone on October 15, 2018. It appears that she was responding considerably but her kappa light chain has increased by 20 points. She is in the middle of cycle #2, complicated by neutropenia. HISTORY OF PRESENT ILLNESS Pat returns. She was becoming more symptomatic before initiating therapy with Cytoxan, pomalidomide and dexamethasone. We recommend that we do this and immediately follow it by allogeneic stem cell transplant. She would like to get this done in [place]. Her goal is to get it done in March but I worry about her ability to wait that long given the slight increase in the light chains this month. We are going to recheck them in two and four weeks to see if this is real. Although we cannot directly compare them to outside labs, we believe that she was having profound response to the therapy with the first cycle as her light chains went all the way down to 30. By report, these were quite high when measured at [facility]. Overall, she feels well. Minimal side effects. She has had neutropenia and we have given her some G-CSF including today. We will need to delay her treatment slightly as her neutrophils are 0.2 today and lower her dose from pomalidomide 4 mg to 3 mg. Discussed I am concerned about this because she may be relapsing and it would be unwise to reduce the dose dramatically. ONCOLOGY HISTORY The patient is a 52-year-old female who was diagnosed with kappa light chain multiple myeloma in December 2014. 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 She presented with anemia, hypercalcemia, numerous lytic lesions with compression of lumbar 2 and renal failure. Her animal protein at diagnosis was 0.3 gm/dL. She is status one cycle of VTD, then switched to VRD and completed a total of five cycles of induction. She received mobilization with G-CSF and collected a total of 14.9 x 10 (6) CD34/kg and her single agent melphalan autotransplant on March 16, 2013. She achieved VGPR with residual bone marrow and monoclonal protein involvement. She was started on VRD maintenance and completed six cycles and achieved a complete remission by serum and urine markers. Bone marrow biopsy January 2014 was less than 1% monoclonal plasma cells. The patient was switched to Revlimid and continued on that treatment until March 2015, when she showed signs of progression. She had light chain elevation in December 2014, and her Revlimid dose was increased to 10 mg, having been decreased due to cytopenias before. In March 2015, she had further progression of her kappa light chain of 24, K/L ratio of 26. No monoclonal protein in her serum or urine. She underwent bone marrow biopsy which showed 5% monoclonal plasma cells. With confirmation of disease progression, she was initiated on carfilzomib, pomalidomide, and dexamethasone. After two cycles of treatment, she showed small decrease in the light chain and increased again and overall remained stable with nearly seven cycles of the treatment. She was seen at the clinic in [place] for a second opinion with recommendation to continue on the current therapy until she progressed. Her sister has been confirmed as a match for allo transplant, though she does not want to pursue this any further unless it becomes more of a necessity. With her disease progression, the patient started on CPD early April 2015 and after two cycles in June 2015, her re-staging was concerning as her light chains are elevated again. Her bone marrow at that time revealed 1% monoclonal plasma cells, MRD with 1984 cells/million. After three more cycles of CPD, her serum light chain has essentially been stable. In September 2015 she had complete re-staging, which shows her PET scan with progressive disease as compared to December 2014. Her bone marrow was stable with 2% monoclonal plasma cells, so interestingly, her MRD is down to 451 cells per million. Her light chains remained stable until cycle 7 and the kappa light chains increased again. The patient was offered chemotherapy with DPACE, followed by auto transplant; however, she elected to start daratumumab. The patient finished the eight weekly doses of daratumumab and four of the bi-weekly doses, and she is due today, March 31, 2016, to start her fifth dose of daratumumab, as the patient moved from [place] to [place], [place], and she would like to establish her care here. Patient completed 15 cycles of daratumumab, Velcade and methylprednisolone. Patient has been evaluated at [facility] with recommendation of treatment Velcade weekly, dexamethasone 20 mg weekly, and venetoclax orally. She completed this therapy before evidence of relapse. She then moved forward with CAR T-cell therapy on clinical trial at [facility] and did well with this. She had initial response but, unfortunately, has now relapsed in the late winter of 2018. Discussion is ongoing to determine the next best of therapy but have elected to pursue Cytoxan, pomalidomide, dexamethasone. She has not yet had elotuzumab before. She had VD-PACE in the distant past and we could re-use that in the future as well. She would be a candidate for a second autologous stem cell transplant after control of her disease and we could also consider allogenic stem cell transplant at some point in the future as well if required. She has a matched sibling by report. PAST MEDICAL HISTORY 1. Multiple myeloma. 2. Hypothyroidism. 3. GERD. PAST SURGICAL HISTORY 1. Kyphoplasty of the spine. 2. Back surgery with nerve ablation. SOCIAL HISTORY The patient is with one daughter. She is on disability because of multiple myeloma. She never smoked. She occasionally drank. Denies any abuse of illicit drugs. FAMILY HISTORY Father had bladder cancer in his late 80s. ALLERGIES No known drug allergies. MEDICATIONS 1. Acyclovir 400 mg p.o. b.i.d. 2. Vitamin D3 5000 units p.o. q.d. 3. Cyclophosphamide 500 mg p.o. q. week on days 1, 8, 15 and 22 of a 28-day cycle. 4. Dexamethasone 16 mg on days 1, 8, 15 and 22 on a 28-day cycle. 5. Diclofenac gel p.r.n. pain. 6. Duloxetine 60 mg 1 p.o. q.d. 7. Estradiol patch transdermal q. week. 8. Hydrocodone/acetaminophen 5/325 mg 1 p.o. q4h p.r.n. pain. 9. Lactobacillus combination one capsule daily. 10. Levothyroxine 150 mcg p.o. q.d. 11. Milk of Magnesia 400 mg p.o. q.d. 12. Multivitamin daily. 13. Omeprazole 20 mg daily. 14. Ondansetron 8 mg ODT one sublingual p.r.n. nausea. 15. Pomalidomide 4 mg capsule daily on days 1 through 21 of a 28-day cycle. 16. Trazodone 50 mg tablet p.o. at bedtime. 17. Progesterone micronized 200 mg p.o. daily. REVIEW OF SYSTEMS CONSTITUTIONAL: No fevers or chills. HEENT: No headaches or vision changes. CARDIOVASCULAR: No chest pain, dyspnea on exertion or edema. RESPIRATORY: No shortness of breath, wheeze or cough. GI: No nausea or vomiting. : No dysuria or hematuria. MUSCULOSKELETAL: No weakness or joint pain. PSYCHIATRIC: No anxiety or depression. ENDOCRINE: No heat or cold intolerance. SKIN: No concerning rashes or lesions. The remainder of a 14-point review of systems is otherwise negative. PHYSICAL EXAMINATION VITAL SIGNS: BP 112/85, pulse 91, respiratory rate 18, temperature 97.5 Fahrenheit, oxygen saturation 94% on room air, weight 83.8 kg. Pain 2/10, fatigue 3/10. GENERAL: Stable condition, resting comfortably in chair. HEAD: Normocephalic, atraumatic. CARDIOVASCULAR: Regular rate and rhythm. LUNGS: Clear. ABDOMEN: Soft, nontender, nondistended. EXTREMITIES: No clubbing, cyanosis or edema. SKIN: No concerning rashes or lesions. Remainder of physical exam otherwise unremarkable. IMPRESSION/REPORT/PLAN Ms. Johnson is a very pleasant 52-year-old female with relapsed multiple myeloma having failed CAR T-cell therapy after initial response. She is currently in Cycle #2 of Cytoxan, pomalidomide and dexamethasone. She has significant neutropenia and we will need to give G-CSF today and daily potentially. We will check her labs daily. I would like to continue the Cytoxan but defer at one week at the same dose. We need to lower the dose of pomalidomide to 3 mg and begin her chemotherapy holiday week today. We are hopefully able to resume Cycle #3 next week. I would like to get her labs every two weeks to see where her kappa light chain really is to see if she is truly relapsing or not. I sent a message to Dr. Quezada and his sports coordinator, Pilar, regarding these steps. Options could be to substitute the Cytoxan to elotuzumab if we do see she is, in fact, relapsing. We could back to VD-PACE but would need to be prepared for transplant after one or two cycles of that. Mary would like to get transplant in March but understands we may need to alter that timeline if she is relapsing. I answered all of her many questions today. Complex care coordination with [facility] for this high-risk, high complexity issue. BILLING Level 4. Total time 30 minutes, counseling time 20. MTDD
[2018-12-05 09:37] LABS: PLATELET COUNT, AUTOMATED 52 K/uL (150-450)
[2018-12-05 11:26] VITALS: BP 110/74
[2018-12-06 09:58] VITALS: BP 133/79
[2018-12-07 09:03] VITALS: BP 110/90
[2018-12-07 09:33] LABS: PLATELET COUNT, AUTOMATED 57 K/uL (150-450)
[2018-12-07] MEDS: LIDOCAINE/SOD BICARB 8.4% SYR ID PRN (09:54)
[2018-12-07 13:27] VITALS: BP 125/83
[2018-12-11 15:17] VITALS: BP 123/84
[2018-12-11 15:22] LABS: PLATELET COUNT, AUTOMATED 68 K/uL (150-450)
--- NOTE | 2018-12-11 23:19 | ONCOLOGY FOLLOW UP NOTE ---
EVENT DATE: December 11, 2018 CHIEF COMPLAINT Ms. Johnson is a pleasant 53-year-old female with advanced multiple myeloma, now refractory to CAR T-cell therapy, her most recent line of therapy. She initiated oral Cytoxan, pomalidomide, and dexamethasone on October 15, 2018. We did not get her kappa and lambda light chains until Cycle #1, day 8, and it appears that she may be responding considerably already. She has been having some bone pain, which could be a sign of response. We obtained x-rays on October 22, 2018, to make sure there were no new lesions, and everything appeared stable. She is now into Cycle #2, which she started on Monday, November 19, 2018. HISTORY OF PRESENT ILLNESS Pat returns for followup today. She had been becoming more symptomatic before initiating therapy with Cytoxan, pomalidomide, and dexamethasone. We recommended that we start this and immediately follow it by allogenic stem cell transplant. She would like to get this done in [place]. Her goal is to have this done in March, although we do worry about her ability to wait that long given the slight increase in serum light chains this past month. We are planning to repeat these in two to four weeks to see if this is truly increasing. Although we cannot directly compare them to outside labs, we believe that she was having profound response to therapy with the first cycle as her light chains did decrease all the way down to 30. By report, these were quite high when measured at [facility]. Overall, she feels well. She has had minimal side effects, and her chief complaint is fatigue. She has had some neutropenia, and we have given her some G-CSF. She did require Neupogen on 11/12/18 as well as a treatment hold x1 week. Most recently, she received Neupogen again on 12/03/18. We also initiated daily CBC checks until ANC was about 1000. Lastly, at her last visit with Dr. Mcghee on 12/03/18, we initiated a dose reduction on her pomalidomide and decreased it to 3 mg from previous 4 mg. She is aware of our concerns about decreasing as she may be relapsing, and it would be unwise to reduce the dose dramatically. Today, she tells me that she continues to have some fatigue, but has not had any fevers, chills, night sweats, or new bony-type pain. She has had some intermittent dyspnea on exertion. ONCOLOGY HISTORY The patient is a 53-year-old female who was diagnosed with kappa light chain multiple myeloma in December 2014, ISS stage III with translocation 11;14, 13 and 16q deletion. She presented with anemia, hypercalcemia, numerous lytic lesions with compression of lumbar 2, and renal failure. Her animal protein at diagnosis was 0.3 gm/dL. She is status one cycle of VTD, then switched to VRd, and completed a total of five cycles of induction. She received mobilization with G-CSF and collected a total of 14.9 x 10(6) CD34/kg on her single-agent melphalan autotransplant on March 16, 2013. She achieved VGPR with residual bone marrow and monoclonal protein involvement. She was started on VRd maintenance and completed six cycles and achieved a complete remission by serum and urine markers. Bone marrow biopsy January 2014 was less than 1% monoclonal plasma cells. The patient was switched to Revlimid and continued on that treatment until March 2015, when she showed signs of progression. She had light chain elevation in December 2014, and her Revlimid dose was increased to 10 mg, having been decreased due to cytopenias before. In March 2015, she had further progression of her kappa light chain of 24, kappa to lambda ratio of 26. No monoclonal protein in her serum or urine. She underwent bone marrow biopsy, which showed 5% monoclonal plasma cells. With confirmation of disease progression, she was initiated on carfilzomib, pomalidomide, and dexamethasone. After two cycles of treatment, she showed small decrease in the light chain, increased again, and overall remained stable with nearly seven cycles of the treatment. She was seen at a clinic in [place] for a second opinion with recommendation to continue on the current therapy until she progressed. Her sister has been confirmed as a match for allotransplant, though she does not want to pursue this any further unless it becomes more of a necessity. With her disease progression, the patient started on CPD early April 2015, and after two cycles in June 2015, her re-staging was concerning as her light chains were elevated again. Her bone marrow at that time revealed 1% monoclonal plasma cells, MRD with 1984 cells/million. After three more cycles of CPD, her serum light chain has essentially been stable. In September 2015, she had complete re- staging, which showed her PET scan with progressive disease as compared to December 2014. Her bone marrow was stable with 2% monoclonal plasma cells, so interestingly, her MRD was down to 451 cells/million. Her light chains remained stable until Cycle #7, and the kappa light chains increased again. The patient was offered chemotherapy with D-PACE, followed by autotransplant; however, she elected to start daratumumab. The patient finished the eight weekly doses of daratumumab and four of the bi-weekly doses. She was due March 31, 2016, to start her fifth dose of daratumumab as the patient moved from [place], [place], and she established her care here. Patient completed 15 cycles of daratumumab, Velcade, and methylprednisolone. Patient has been evaluated at [facility] with recommendation of treatment Velcade weekly, dexamethasone 20 mg weekly, and venetoclax orally. She completed this therapy before evidence of relapse. She then moved forward with CAR T-cell therapy on clinical trial at [facility] and did well with this. She had initial response but, unfortunately, has now relapsed in the late winter of 2018. Discussion is ongoing to determine the next best course of therapy, but have elected to pursue Cytoxan, pomalidomide, and dexamethasone. She has not yet had elotuzumab before. She had VD-PACE in the distant past, and we could re-use that in the future as well. She would be a candidate for a second autologous stem cell transplant after control of her disease, and we could also consider allogenic stem cell transplant at some point in the future as well if required. She has a matched sibling by report. PAST MEDICAL HISTORY 1. Multiple myeloma. 2. Hypothyroidism. 3. GERD. PAST SURGICAL HISTORY 1. Kyphoplasty of the spine. 2. Back surgery with nerve ablation. SOCIAL HISTORY The patient is with one daughter. She is on disability because of multiple myeloma. She never smoked. She occasionally drank. Denies any abuse of illicit drugs. FAMILY HISTORY Father had bladder cancer in his late 80s. ALLERGIES No known drug allergies. MEDICATIONS 1. Acyclovir 400 mg p.o. b.i.d. 2. Vitamin D3 5000 units p.o. q. day. 3. Cyclophosphamide 500 mg p.o. q. week on days 1, 8, 15, and 22 of a 28-day cycle. 4. Dexamethasone 16 mg on days 1, 8, 15, and 22 on a 28-day cycle. 5. Diclofenac gel p.r.n. pain. 6. Duloxetine 60 mg 1 p.o. q. day. 7. Estradiol patch transdermal q. week. 8. Hydrocodone/acetaminophen 5/325 mg one p.o. q.4 hours p.r.n. pain. 9. Lactobacillus combination one capsule daily. 10. Levothyroxine 150 mcg p.o. q. day. 11. Milk of Magnesia 400 mg p.o. q. day. 12. Multivitamin daily. 13. Omeprazole 20 mg daily. 14. Ondansetron 8 mg ODT one sublingual p.r.n. nausea. 15. Pomalidomide 4 mg capsule daily on days 1 through 21 of a 28-day cycle. 16. Trazodone 50 mg tablet p.o. at bedtime. 17. Progesterone micronized 200 mg p.o. daily. REVIEW OF SYSTEMS CONSTITUTIONAL: Tejal denies any recent fevers, chills, or night sweats. No new areas of pain. HEENT: No vision changes, headache, tinnitus, dysphagia, or odynophagia. No mouth sores. CARDIOVASCULAR: No chest pain, syncope, or presyncope. RESPIRATORY: She has some occasional dyspnea on exertion. No shortness of breath, wheeze, or cough. No sputum production. GASTROINTESTINAL: No abdominal pain, nausea, vomiting, or diarrhea. She has had some occasional constipation, which she is managing well. No bright red blood per rectum or melena. Appetite is normal. She is using stool softeners. GENITOURINARY: No dysuria, hematuria, or genitourinary discharge. MUSCULOSKELETAL: No focal areas of pain. No weakness. NEUROLOGIC: No headaches or seizure activity. PSYCHIATRIC: She denies any severe anxiety, severe depression, suicidal or homicidal ideation. SKIN: No rash. No generalized pruritus. No suspicious lumps or bumps. ENDOCRINE: She denies any heat or cold intolerance. The remainder of a 12-point review of systems is performed today and is otherwise negative. PHYSICAL EXAMINATION VITAL SIGNS: T 98.6, P 95, R 18, BP 123/84, oxygen saturation 93% room air. GENERAL: In general, this is a pleasant 53-year-old woman who appears well hydrated, well nourished, and is in no acute distress. HEAD: Atraumatic, normocephalic. EYES: Sclerae anicteric. ENT, MOUTH: Moist mucous membranes. No suspicious oral lesions. CARDIOVASCULAR: Regular rate and rhythm. LUNGS: Clear to auscultation bilaterally. No focal findings. ABDOMEN: Soft, nontender, nondistended. Bowel sounds positive x4. EXTREMITIES: No edema. No clubbing or cyanosis. NEUROLOGIC: Patient is awake, alert, oriented x3. PSYCHIATRIC: Mood and affect are appropriate. DERM: No rash, petechiae, or purpura. MUSCULOSKELETAL: Gait and ambulation are steady. LABORATORY CBC today: WBC 2.7, ANC 2.1, hemoglobin 9.2, hematocrit 27.2%, platelets 68,000. CMP today: Unremarkable with the exception of minimally elevated BUN at 19 with normal serum creatinine at 0.80, calcium normal at 9.9, LFTs normal, total protein normal at 7.8, with albumin normal at 4.4. Most recent light chains done on 11/29/18 did reveal rise in free kappa light chains at 59.6, as previously these were 35.5 on 11/09/18. We, again, will be checking these in the next couple of weeks. IMPRESSION AND PLAN Ms. Johnson is a very pleasant 53-year-old female with relapsed multiple myeloma with her most recent therapy being CAR T-cell therapy. After discussion, she would like to move forward with Cytoxan, pomalidomide, and dexamethasone, which I believe is a very appropriate regimen. We could utilize an elotuzumab-based therapy in the future if necessary. We could also utilize a second autologous stem cell transplant after completion of this therapy if she would like. We agree with Dr. Morgan that we could do it after three cycles. She does have some plans at the beginning of the summer, so we may end up treating her with this oral therapy for a total of four to six cycles before moving forward with transplant. She is now into her third cycle. She started day 1 of Cycle #3 yesterday. She tells me that she did incidentally take a 4 mg dose of pomalidomide yesterday as she did not have the new dose delivered yet from [facility]. She is feeling well, but does have ongoing fatigue. 1. Patient will continue with Cytoxan, pomalidomide, and dexamethasone. She will dose reduce pomalidomide to 3 mg daily as per instructed last week during her visit with Dr. Mcghee. 2. Labs: We will continue to check labs every two weeks. She'll be due for repeat serum free light chains next week. 3. She last received G-CSF on 12/03/18. 4. Dr. Mcghee discussed her case with Dr. Montejo, her transplant oncologist. 5. Reviewed today's labs with patient. Her ANC has improved, as have her platelets, though she is still aware of neutropenic precautions and bleeding precautions. She is slightly more anemic today with hemoglobin of 9.2, consistent with her ongoing myelosuppression. Will need to continue to evaluate this as she may require additional growth factor support for that. She is not having any signs or symptoms of bleeding, but does have some dyspnea on exertion consistent with her anemia. 6. Of note, patient tells me that she will be traveling next week on vacation to [place], [place]. She will be coming in next Monday for her labs. She does have a prescription for possibly Cipro at home and plans to take that along with some other [id number] medications on her trip. If she does not have a prescription, she is aware that she can call us, and we can certainly send in a prescription for her to have in case of any symptoms while traveling. 7. She will keep her next followup appointment with Melisa Quesada, Nurse Practitioner, scheduled for 12/17/18. She is scheduled to follow up with her medical oncologist, Dr. Mcghee, on 01/21/19. GRETCHEN
[2018-12-17 13:34] VITALS: BP 112/68
[2018-12-17 13:45] LABS: PLATELET COUNT, AUTOMATED 118 K/uL (150-450)
--- NOTE | 2018-12-18 02:27 | ONCOLOGY FOLLOW UP NOTE ---
EVENT DATE: December 17, 2018 CHIEF COMPLAINT Followup for advanced multiple myeloma. HISTORY OF PRESENT ILLNESS Patient is a 53-year-old female who was seen today in followup. She is currently on cycle 3/week 2 of her Cytoxan, pomalidomide, and dexamethasone. Pomalidomide dose was recently decreased from 4 mg to 3 mg. She notes slightly less fatigue, but this has been ongoing. She has mild dyspnea on exertion. She has also noted a slight increase in her peripheral neuropathy in her feet. She will be going on a trip to [place] on 12/19/18 for two weeks and is excited about this. Otherwise, she feels fairly well. She completed six cycles of pentamidine and IVIG last week. ONCOLOGY HISTORY 1. Patient was diagnosed with [id number] multiple myeloma in December 2014, stage III with translocation 11, 14, 13, and 16q deletion. 2. Completed five cycles of induction with one cycle of VTD and four cycles of VRD. 3. Underwent autotransplant on 03/16/15. 4. Began VRD maintenance and completed six cycles, achieving a complete remission. 5. Switched to Revlimid and continued that treatment through March 2015, when she showed signs of progression. 6. Began carfilzomib, pomalidomide, and dexamethasone for five cycles. 7. In September 2015, PET scan showed progressive disease with an increase in kappa light chains. 8. Completed 15 cycles of daratumumab, Velcade, and methylprednisolone in March 2016. 9. Treated with Velcade, dexamethasone, and venetoclax before evidence of relapse. 10. Underwent CAR-T cell therapy on clinical trial in June 2018, but now refractory. 11. Started Cytoxan, pomalidomide, and dexamethasone in October 2018 with plans for autotransplant in March 2019. Her sister is a match sibling. PAST MEDICAL HISTORY 1. Multiple myeloma. 2. Hypothyroidism. 3. GERD. PAST SURGICAL HISTORY 1. Kyphoplasty. 2. Back surgery with nerve ablation. FAMILY HISTORY Father had bladder cancer in his late 80s. SOCIAL HISTORY Patient is single. She has one grown daughter. She is on disability due to multiple myeloma. She has never smoked. She occasionally drinks alcohol. She does not use illicit drugs. MEDICATIONS 1. Acyclovir 400 mg b.i.d. 2. Vitamin D3 5000 international units daily. 3. Diclofenac gel p.r.n. 4. Duloxetine 60 mg daily. 5. Estradiol patch weekly. 6. Hydrocodone/acetaminophen 5/325 mg every four hours p.r.n. pain. 7. Lactobacillus daily. 8. Levothyroxine 150 mcg daily. 9. Milk of magnesia. 10. Multivitamin. 11. Omeprazole 20 mg daily. 12. Progesterone micronized 200 mg daily. 13. Cyclophosphamide 500 mg each week, days 1, 8, 15, and 22 of a 28-day cycle. 14. Dexamethasone 16 mg daily days 1, 8, 15, and 22 on a 28-day cycle. 15. Pomalidomide 3 mg daily days 1 through 21 of a 28-day cycle. ALLERGIES No known drug allergies. REVIEW OF SYSTEMS A 12-point review of systems is performed and is negative except as stated above. PHYSICAL EXAMINATION VITAL SIGNS: Blood pressure 112/68, pulse 98, respirations 16, temperature 98.7, O2 saturation 93%. GENERAL: Patient is a well-developed, well-nourished female in no acute distress. HEAD: Normocephalic, atraumatic. EYES: Sclerae anicteric. MOUTH: Moist mucous membranes. No lesions. NECK: Supple. No palpable adenopathy. LUNGS: Clear bilaterally. CARDIOVASCULAR: Mild tachycardia with regular rhythm. EXTREMITIES: No edema. NEURO: Nonfocal. LABORATORY CBC today reveals a WBC of 1.3, hemoglobin 8.8, hematocrit 26.9, platelets 118,000. CMP is pending. IMPRESSION AND PLAN The patient is a 53-year-old female with relapsed multiple myeloma, having recently failed CAR-T therapy after initial response. Began Cytoxan, pomalidomide, and dexamethasone in October 2018. Pomalidomide dose was decreased from 4 mg to 3 mg due to ongoing cytopenias. 1. Multiple myeloma. Continue Cytoxan 500 mg each week, dexamethasone 16 mg each week, and pomalidomide 3 mg daily days 1-21 every 28 days. This is cycle 3/week 2 of treatment. 2. Neutropenia. Patient will receive Neupogen 480 mcg subcutaneously today and tomorrow. She is going on a trip to [place] on Monday for two weeks. She is instructed on neutropenia precautions. I have written her a prescription for prophylactic Levaquin 500 mg daily for seven days if she were to need this. 3. Anemia. Hemoglobin has slowly been decreasing. She does have some mild dyspnea on exertion, but is otherwise asymptomatic. 4. Thrombocytopenia. Platelet count has increased from 68,000 to 118,000. She is aware of bleeding precautions. 5. Follow up for lab on 01/07/19 (CBC, CMP, SPEP, and serum free light chains). 6. Follow up with Dr. Mcghee on 01/21/19. 7. Follow up with Dr. Montejo on 01/22/19 to discuss upcoming transplant. JERELD
[2018-12-18 15:02] VITALS: BP 117/67
[2019-01-07 10:17] LABS: PLATELET COUNT, AUTOMATED 88 K/uL (150-450)
[2019-01-07 10:40] VITALS: BP 114/79
[2019-01-07] MEDS: HEPARIN FLSH (PORT) 500 UN/5ML IVP PRN ×2 (10:51→10:55)
[2019-01-07] MEDS: LIDOCAINE/SOD BICARB 8.4% SYR ID PRN (10:51)
[2019-01-08 10:18] VITALS: BP 105/74
[2019-01-10 14:12] VITALS: BP 109/66
[2019-01-10 15:00] LABS: PLATELET COUNT, AUTOMATED 118 K/uL (150-450)
--- NOTE | 2019-01-11 20:19 | ONCOLOGY FOLLOW UP NOTE ---
EVENT DATE: January 10, 2019 CHIEF COMPLAINT Followup for multiple myeloma and recent ER visit. HISTORY OF PRESENT ILLNESS Patient is a 53-year-old female who was seen today as a work-in. She has been treated with Cytoxan, pomalidomide, and dexamethasone. Cycle 3, week 2 was delayed one week due to neutropenia. She recently returned from her trip to [place]. She noted slightly loose stools on Monday and Monday of this week. On 01/09/19, she developed explosive diarrhea with overall achiness and fever. She was seen in the Emergency Room. Stool culture showed gram-positive cocci, gram- positive coccobacilli, and gram-negative rods. She was treated with IV antibiotics in the Emergency Room and sent home on both azithromycin and Augmentin as shigella was suspected. She also received IV hydration last night. She presents today and is feeling improved. Stools are slightly loose, but "nothing like before." She has no fevers, and achiness has now resolved. ONCOLOGY HISTORY 1. Patient was diagnosed with [id number] multiple myeloma in December 2014, stage III with translocation 11, 14, 13, and 16q deletion. 2. Completed five cycles of induction with one cycle of VTD and four cycles of VRD. 3. Underwent autotransplant on 03/16/15. 4. Began VRD maintenance and completed six cycles, achieving a complete remission. 5. Switched to Revlimid and continued that treatment through March 2015, when she showed signs of progression. 6. Began carfilzomib, pomalidomide, and dexamethasone for five cycles. 7. In September 2015, PET scan showed progressive disease with an increase in kappa light chains. 8. Completed 15 cycles of daratumumab, Velcade, and methylprednisolone in March 2016. 9. Treated with Velcade, dexamethasone, and venetoclax before evidence of relapse. 10. Underwent CAR-T cell therapy on clinical trial in June 2018, but now refractory. 11. Started Cytoxan, pomalidomide, and dexamethasone in October 2018, with plans for autotransplant in March 2019. Her sister is a matched sibling. PAST MEDICAL HISTORY 1. Multiple myeloma. 2. Hypothyroidism. 3. GERD. PAST SURGICAL HISTORY 1. Kyphoplasty. 2. Back surgery with nerve ablation. FAMILY HISTORY Father had bladder cancer in his late 80s. SOCIAL HISTORY Patient is single. She has one grown daughter. She is on disability due to multiple myeloma. She has never smoked. She occasionally drinks alcohol. She does not use illicit drugs. MEDICATIONS 1. Acyclovir 400 mg b.i.d. 2. Vitamin D3 5000 International Units daily. 3. Diclofenac gel p.r.n. 4. Duloxetine 60 mg daily. 5. Estradiol patch weekly. 6. Hydrocodone/acetaminophen 5/325 mg every four hours p.r.n. pain. 7. Lactobacillus daily. 8. Levothyroxine 150 mcg daily. 9. Milk of magnesia. 10. Multivitamin. 11. Omeprazole 20 mg daily. 12. Progesterone micronized 200 mg daily. 13. Cyclophosphamide 500 mg each week, days 1, 8, 15, and 22 of a 28-day cycle. 14. Dexamethasone 16 mg daily days 1, 8, 15, and 22 on a 28-day cycle. 15. Pomalidomide 3 mg daily days 1 through 21 of a 28-day cycle. ALLERGIES No known drug allergies. REVIEW OF SYSTEMS A 12-point review of systems is performed and is negative except as stated above. PHYSICAL EXAMINATION VITAL SIGNS: Blood pressure 109/66, pulse 97, respirations 16, temp 99, O2 sat 96%. GENERAL: Patient is a well-developed, well-nourished female in no acute distress. HEAD: Normocephalic, atraumatic. EYES: Sclerae anicteric. MOUTH: Slightly dry mucous membranes. No lesions. LUNGS: Clear bilaterally. CARDIOVASCULAR: Heart rate regular, 90 per minute. ABDOMEN: Soft with hyperactive bowel sounds. Exam is limited. EXTREMITIES: No edema. NEURO: Nonfocal. LABORATORY CBC today reveals a WBC of 3.5, hemoglobin 8.8, hematocrit 26.4, platelets 118,000. CMP shows a slightly low potassium of 3.2, but otherwise within normal limits. [place] light chains on 01/07/19 showed an increase from 59.6 to 302. IMPRESSION The patient is a 53-year-old female with relapsed multiple myeloma, having recently failed CAR-T therapy after initial response. Began Cytoxan, pomalidomide, and dexamethasone in October 2018. Pomalidomide dose was decreased from 4 mg to 3 mg due to ongoing cytopenias. PLAN 1. Multiple myeloma. Patient's pomalidomide, dexamethasone, and Cytoxan have been held this week due to ongoing neutropenia. Unfortunately, kappa light chains increased from 59.6 in November to 302 on 01/07/19. She will follow up with Dr. Mcghee on 01/21/[address] Montejo on 01/22/19 to discuss upcoming transplant. 2. Gastroenteritis. Patient presented with explosive diarrhea on 01/09/19. Shigella was suspected; however, culture is negative thus far. I will recheck culture results tomorrow. Tejal does not want to take the azithromycin or Augmentin, especially as she is feeling better. I will touch base with her tomorrow once I get the final stool culture results. 3. Hypokalemia. Potassium is slightly low at 3.2. She will eat higher potassium foods. 4. Anemia. Hemoglobin today is 8.8. She has been anemic and not especially symptomatic from this. Will continue to monitor trends. 5. Neutropenia. Now resolved. She received Neupogen for two days and pomalidomide, Cytoxan, and dexamethasone have been held this week. 6. Follow up with Dr. Mcghee on 01/21/19 for continued care. [facility] CENTERCourtney
[2019-01-14 10:38] VITALS: BP 118/78
[2019-01-14 10:57] LABS: PLATELET COUNT, AUTOMATED 156 K/uL (150-450)
[~2019-01-21 11:22] MED LIST changes: +ACETAMINOPHEN 325 MG TAB PO PRN; +ALBUTEROL/IPRATROPIUM 3 ML NEB NEB ONE; +ALTEPLASE RECOMB 2 MG VIAL IVP PRN; +AMOX-559 PO; +CIPR-214 PO; +DEXTROSE 5%(*) 100 ML BAG 100 ML IVPB PRN; +FILGRASTIM 480 MCG/0.8 ML SYRINGE SC ONE; +FILGRASTIM 480 MCG/0.8 ML SYRINGE SC SCH; +IMMU GLOB(IGG) 10GR/100ML VIAL 100 ML IV ONE; +IMMU GLOB(IGG) 20GR/200ML VIAL 200 ML IV ONE; +NS(*) 0.9% 100 ML BAG 100 ML IVPB PRN; +NS(*) 0.9% 250 ML BAG 250 ML IVPB PRN; +PENTAMIDINE 300 MG INH ONE; +WATER FOR INJ,STERILE 20 ML IVP PRN; +diphenhydrAMINE 50 MG/ML VIAL IVP PRN
[2019-01-21 11:28] VITALS: BP 100/68
[2019-01-21 11:39] LABS: PLATELET COUNT, AUTOMATED 138 K/uL (150-450)
--- NOTE | 2019-01-22 06:04 | ONCOLOGY FOLLOW UP NOTE ---
EVENT DATE: January 21, 2019 CHIEF COMPLAINT/REASON FOR VISIT Ms. Johnson is a pleasant 52-year-old female currently on Cytoxan, pomalidomide, and dexamethasone, here for followup. HISTORY OF PRESENT ILLNESS Pat returns. She has had episodes of neutropenia which led to a dose reduction of pomalidomide from 4 mg to 3 mg. She did develop infectious diarrhea in late December and was treated with antibiotics. Shigella was suspected. This has resolved. She is here today stressed due to the rapid increase in her light chains from around 50 to over 300. We are sending repeat labs today to see if this is a lab error or was impacted by her recent acute infection. Her hemoglobin and white blood cell count are slightly lower, but I am not seeing increase in her creatinine or calcium at all. Those labs have already returned today. We had an extensive discussion today about the possibility that this is rapidly relapsing, and I worry that transition to an elotuzumab-based regimen would not be sufficient, and she may require chemotherapy and transplant including possibly allotransplant. Fortunately, her sister is a match. ONCOLOGY HISTORY 1. Patient was diagnosed with [id number] multiple myeloma in December 2014, stage III with translocation 11, 14, 13, and 16q deletion. 2. Completed five cycles of induction with one cycle of VTD and four cycles of VRD. 3. Underwent autotransplant on 03/16/15. 4. Began VRD maintenance and completed six cycles, achieving a complete remission. 5. Switched to Revlimid and continued that treatment through March 2015, when she showed signs of progression. 6. Began carfilzomib, pomalidomide, and dexamethasone for five cycles. 7. In September 2015, PET scan showed progressive disease with an increase in kappa light chains. 8. Completed 15 cycles of daratumumab, Velcade, and methylprednisolone in March 2016. 9. Treated with Velcade, dexamethasone, and venetoclax before evidence of relapse. 10. Underwent CAR-T cell therapy on clinical trial in June 2018, but now refractory. 11. Started Cytoxan, pomalidomide, and dexamethasone in October 2018, with plans for autotransplant in March 2019. Her sister is a matched sibling. PAST MEDICAL HISTORY 1. Multiple myeloma. 2. Hypothyroidism. 3. GERD. PAST SURGICAL HISTORY 1. Kyphoplasty. 2. Back surgery with nerve ablation. FAMILY HISTORY Father had bladder cancer in his late 80s. SOCIAL HISTORY Patient is single. She has one grown daughter. She is on disability due to multiple myeloma. She has never smoked. She occasionally drinks alcohol. She does not use illicit drugs. MEDICATIONS 1. Acyclovir 400 mg b.i.d. 2. Vitamin D3 5000 international units daily. 3. Diclofenac gel p.r.n. 4. Duloxetine 60 mg daily. 5. Estradiol patch weekly. 6. Hydrocodone/acetaminophen 5/325 mg every four hours p.r.n. pain. 7. Lactobacillus daily. 8. Levothyroxine 150 mcg daily. 9. Milk of magnesia. 10. Multivitamin. 11. Omeprazole 20 mg daily. 12. Progesterone micronized 200 mg daily. 13. Cyclophosphamide 500 mg each week, days 1, 8, 15, and 22 of a 28-day cycle. 14. Dexamethasone 16 mg daily days 1, 8, 15, and 22 on a 28-day cycle. 15. Pomalidomide 3 mg daily days 1 through 21 of a 28-day cycle. ALLERGIES No known drug allergies. REVIEW OF SYSTEMS CONSTITUTIONAL: No fevers, chills currently. She has resolved from the recent infection. No weight change. HEENT: No headaches, vision changes. CARDIOVASCULAR: No chest pain, dyspnea on exertion, edema. RESPIRATORY: No shortness of breath, wheeze, cough. GASTROINTESTINAL: No nausea, vomiting, diarrhea, constipation. GENITOURINARY: No dysuria, hematuria. MUSCULOSKELETAL: No weakness, joint pain. PSYCHIATRIC: No anxiety, depression. SKIN: No concerning rashes or lesions. MUSCULOSKELETAL: She does have some mild hip pain, but it is infrequent and seems to be associated with gardening, appears to be more arthritic than bone- based. Remainder of 14-point review of systems otherwise negative. PHYSICAL EXAMINATION VITAL SIGNS: Blood pressure 100/68, pulse 92, respiratory rate 16, temperature 97.6 Fahrenheit, oxygen saturation 92% on room air. Pain 3/10, which is chronic in the back. Fatigue 2/10. GENERAL: Stable condition, resting comfortably in the chair. ECOG performance status of 1. HEENT: Normocephalic, atraumatic. CARDIOVASCULAR: Regular rate and rhythm. LUNGS: Clear. ABDOMEN: Soft, nontender, nondistended. EXTREMITIES: No clubbing, cyanosis, or edema. LYMPHATIC: No appreciable cervical, supraclavicular, or axillary adenopathy. Remainder of her physical exam is otherwise unremarkable. IMPRESSION/REPORT/PLAN Ms. Johnson is a pleasant 52-year-old female with the following: Relapsed multiple myeloma. Patient is currently on pomalidomide 3 mg, dexamethasone, Cytoxan 500 mg. Her kappa light chain increased from 59 to 302. I am not certain that this is real. Plan to check again, as this could be a false positive. We need to prepare for the possibility that this is real, though. It did immediately precede development of an episode of shigella; however, this culture was negative. She resolved with antibiotics. We believe this was likely bacterial gastroenteritis, but could be viral. Her repeat labs are quite critical. If she is worsening, we need to be more aggressive with therapy and then transition to transplant. She follows up with Dr. Montejo tomorrow. Answered all of her many questions today. Thorough review of her chart and extensive time spent in counseling and coordination of care. BILLING Return visit level 5. Total time 45 minutes, counseling time 30. MTDD
== END 2019-01-27 ==
LOC: ONC 11:22
PROVIDERS: ATTEND Internal Medicine
DX: C90.02 Multiple myeloma in relapse (principal); G62.9 Polyneuropathy, unspecified; M89.8X9 Other specified disorders of bone, unspecified site; R53.1 Weakness; R53.83 Other fatigue; E87.6 Hypokalemia; K52.9 Noninfective gastroenteritis and colitis, unspecified
CPT/HCPCS: 36415; 82232; 82784; 83615; 83735; 83883; 84165; 84550; 85025; 85027; 86334; 94640; 94642; 96365; 96366; 96372; 96523; G0463; J1442; J1459; J1642; J2545; J7050; J7620; 82040; 82247; 82310; 82374; 82435; 82565; 82947; 84075; 84132; 84155; 84295; 84450; 84460; 84520; 99212